=== PATIENT | female | born 2005 | race African-American/Black ===

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

== ENCOUNTER 2023-06-20 23:18 | Emergency (ER) | payer SELFPAY ==
--- NOTE | ~2023-06-20 | XR_ITS ---
Left Knee Technique: AP, lateral, and oblique views were obtained. Clinical History: Pain Findings: No fracture or dislocation is seen. Osseous alignment is anatomic. Joint spaces are preserv ed without degenerative or erosive change. Soft tissues are unremarkable. No joint effusion is seen. Impression: Unremarkable left knee radiographs. Reviewed, dictated and finalized at location . Impression: Unremarkable left knee radiographs.
[2023-06-20 23:20] VITALS: BP 124/71; PULSE 69; RESP 16; TEMP 36.7; O2SAT 100
--- NOTE | 2023-06-21 05:46 | ED.GENADULT ---
HPI - General Adult General Chief complaint: Extremity Injury, Lower Stated complaint: L knee pain Time Seen by Provider: 06/21/23 05:43 Patient 18-year-old female presents emergency department with chief complaint of left knee pain. Patient reports couple weeks ago she was playing with her sister and hit her knee-they were wrestling the patient reports that day later started having pain on the medial aspect of her left knee. The patient reports the pain is worse with movement and improved with rest the patient denies any other injuries Related Data Allergies Allergy/AdvReac Type Severity Reaction Status Date / Time No Known Allergies Allergy Verified 10/19/22 10:12 Review of Systems Review of Systems: A 10 system review of systems was completed on the patient and is negative except for what is stated in the HPI. Nursing and ancillary documentation was reviewed. Exam Narrative: GENERAL: Well-appearing, well-nourished, and in no acute distress. HEAD: Normocephalic, atraumatic. EYES: PERRLA and EOMI. ENT: Nares clear, no rhinorrhea or epistaxis. Mucous membranes moist. NECK: Supple. CHEST: Clear to auscultation. No respiratory distress. HEART: Regular rate and rhythm. No murmur heard. Normal peripheral pulses. ABDOMEN: Soft, nontender, nondistended, normal active bowel sounds. EXTREMITIES: Normal range of motion. No edema. Tenderness palpation the medial aspect of left knee no bony step-off noted no deformity SKIN: Warm, dry, no rash. NEURO: No focal deficits. Alert and oriented x3. PSYCH: Normal mood and affect. Course Vital Signs Vital signs: Vital Signs Temperature 36.7 C 06/20/23 23:20 Pulse Rate 69 06/20/23 23:20 Respiratory Rate 16 06/20/23 23:20 Blood Pressure 124/71 06/20/23 23:20 Pulse Oximetry 100 06/20/23 23:20 Oxygen Delivery Room Air 06/20/23 23:20 Temperature 36.7 C 06/20/23 23:20 Pulse Rate 69 06/20/23 23:20 Respiratory Rate 16 06/20/23 23:20 Blood Pressure 124/71 06/20/23 23:20 Pulse Oximetry 100 06/20/23 23:20 Oxygen Delivery Room Air 06/20/23 23:20 Medical Decision Making MDM Narrative Medical decision making narrative: Differential diagnosis includes sprain, fracture Plain film x-ray showed no evidence of fracture Patient was placed in Santino wrap and started on anti-inflammatories the patient follow-up with her primary care provider if her symptoms worsen she may need further imaging as an outpatient. Vital Signs Vital Signs: Vital Signs Temperature 36.7 C 06/20/23 23:20 Pulse Rate 69 06/20/23 23:20 Respiratory Rate 16 06/20/23 23:20 Blood Pressure 124/71 06/20/23 23:20 Pulse Oximetry 100 06/20/23 23:20 Oxygen Delivery Room Air 06/20/23 23:20 Temperature 36.7 C 06/20/23 23:20 Pulse Rate 69 06/20/23 23:20 Respiratory Rate 16 06/20/23 23:20 Blood Pressure 124/71 06/20/23 23:20 Pulse Oximetry 100 06/20/23 23:20 Oxygen Delivery Room Air 06/20/23 23:20 Discharge Plan Discharge Clinical Impression: Knee sprain Qualifiers: Encounter type: initial encounter Involved ligament of knee: other ligament Laterality: left Qualified Code(s): S83.8X2A - Sprain of other specified parts of left knee, initial encounter Patient Disposition: Home, Self-Care Condition: Stable Instructions: Antibiotic Form, Knee Sprain (ED) Prescriptions: New diclofenac potassium 50 mg tablet 50 mg PO TID PRN (Reason: pain) Qty: 30 0RF No Action amoxicillin 500 mg capsule 500 mg PO Q8H 7 Days Qty: 21 0RF prednisone 20 mg tablet 40 mg PO DAILY 4 Days Qty: 8 0RF ondansetron 4 mg tablet,disintegrating 4 mg PO Q6H PRN (Reason: nausea and vomiting) Qty: 14 0RF cephalexin 500 mg capsule 500 mg PO Q12H Qty: 14 0RF Follow-up/Referrals: Fredrick,MD Michelle [Primary Care Provider] - Time of Disposition: 05:47
[2023-06-21 05:55] VITALS: BP 120/68; PULSE 62; RESP 16; O2SAT 100
== END 2023-06-21 06:00 | disposition home or self-care (01) ==
PROVIDERS: Emergency Provider Emergency Medicine; PCP Pediatrics
DX: S83.8X2A Sprain of other specified parts of left knee, initial encounter (principal); W51.XXXA Accidental striking against or bumped into by another person, initial encounter
CPT/HCPCS: 73562; 99283

== ENCOUNTER 2024-02-28 19:51 | Observation (INO) | payer OTHER, SELFPAY ==
[2024-02-28 20:09] VITALS: BP 115/60; PULSE 69
[2024-02-28 20:17] VITALS: BMI 34.5
--- NOTE | 2024-02-28 20:17 | OBADM ---
This patient, Rosalia Ortiz, admitted to the OB room [facility] for observation. Patient/family oriented to hospital policies and general routines including ID bracelet, bed and alarms, visiting hours, pain management, procedures, bathroom and other care routines, personal items, smoking policy, room service/diet, and visiting hours. Patient/Family are encouraged to report perceived risks to care and to ask questions if they do not understand what they are told or what they should do.
[2024-02-28 20:31] VITALS: BP 129/53; PULSE 62
[2024-02-28 20:42] LABS: Add Urine Microscopic? YES; Appearance Urine Turbid (Clear); Bacteria Urine 4+ /hpf; Bilirubin Urine 1+ (Negative); Blood Urine Negative (Negative); Color Urine Dark Yellow (Yellow); Glucose Urine UA Negative (Negative); Ketones Urine 1+ mg/dL (Negative); Leukocyte Esterase Ur 3+ LEU/UL (Negative); Need Manual Microscopic Reviewed; Nitrate Urine Negative (Negative); Non Pathogenic Casts 0-2; Protein Urine 1+ mg/dL (Negative); RBC Urine 0-2 /hpf (0-2); Squamous Epithelial Cell Urine Many /hpf (Few); WBC Urine 21-50 /hpf (0-3)
[2024-02-28] MEDS: FAMOTIDINE 20 MG/2 ML VIAL 10 MG IV PUSH (21:07)
[2024-02-28] MEDS: ONDANSETRON INJ 4 MG/2 ML VIAL IV PUSH (21:07)
[2024-02-28] MEDS: LACTATED RINGERS 1,000 ML 999 ML IV CONT (21:08)
[2024-02-28 21:12] VITALS: TEMP 36.1
[2024-02-28 21:31] VITALS: BP 106/63; PULSE 65
[2024-02-28 21:56] VITALS: BP 106/63; PULSE 65
--- NOTE | 2024-03-07 18:04 | P.PNOB_ITS ---
OB - Triage/Final Diagnosis Visit Information Comments/Additional reasons for admission: I have assessed the risk for this patient, Rosalia Ortiz, and determined that she would benefit from observation care. Evaluation Laboratory results: Laboratory Tests 02/28/24 20:14 Urine Color Dark yellow Urine Appearance Turbid H Urine pH 6.0 Ur Specific Spencer 1.030 Urine Protein 1+ H Urine Glucose (UA) Negative Urine Ketones 1+ H Ur Blood (Man) Negative Urine Nitrate Negative Urine Bilirubin 1+ H Urine Urobilinogen 1.0 Add Ur Microanalysis Reviewed Leukocyte Esterase Rfl 3+ H Urine RBC 0-2 Urine WBC 21-50 H Ur Squamous Epith Cells Many H Urine Bacteria 4+ H Urine Casts 0-2 Final Diagnosis (1) Nausea and vomiting: Code(s): R11.2 - Nausea with vomiting, unspecified Status: Acute
== END 2024-02-28 22:20 | disposition home or self-care (01) ==
PROVIDERS: Admitting Provider Obstetrics & Gynecology; PCP Pediatrics; Visit Provider Obstetrics & Gynecology
DX: O21.2 Late vomiting of pregnancy (principal); Z3A.26 26 weeks gestation of pregnancy
CPT/HCPCS: 59025; 81001; 87086; 96374; 96375; G0378; G0379; J2405; J7120

== ENCOUNTER 2024-03-20 13:08 | Emergency (ER) | payer OTHER, SELFPAY ==
--- OUTSIDE RECORDS SUMMARY | 2024-03-20 13:17 | XMS_ITS | Clinical Summary ---
Author Organization [facility] Address [address] [place] [address] Care Team Providers Care Operation Specialist Name Role Phone Unavailable Primary Care Provider Unavailabl e Source Comments [facility],non-owned Affiliates and Associated Physician Practices is amultiple site organization consisting of ambulatory clinics and hospital sitesin [place], [place], [place] and [place]. This disclosure is being madepursuant to the Care Everywhere program and may not contain all information available regarding this patient. Last updated 17.[facility] Allergies No known active allergies Medications * Be aware that medications may not be up to date on this document. Alwaysverify current medications with the patient. Medication Sig Dispensed Refills Start Date End Date Status Nebulizer Use as directed. 1 Each 0 11/10/2011 Active beclomethasone dipropionate (QVAR) 80 MCG/ACT inhaler Inhale 1 Puff by mouth 2 times daily 1 Inhaler 4 12/02/2015 Active albuterol HFA (PROAIR HFA) 108 (90 BASE) MCG/ACT inhaler Inhale 2 Puffs by mouth every 6 hours as needed (for use at school . last refill in 11/10/11) 1 Inhaler 3 12/02/2015 Active fluticasone propionate (FLONASE) 50 MCG/ACT nasal spray [place] 1 [place] into each nostril once daily 1 Bottle 6 12/02/2015 Active montelukast (SINGULAIR) 5 MG chew tablet Take 1 Tab by mouth at bedtime 30 Tab 1 12/02/2015 Active Active Problems Problem Noted Date Diagnosed Date Allergic rhinitis 12/02/2015 Assessment & Plan (12/02/2015 10:06 AM CDT): Increased symptoms with lots of sneezing, particularly at night. Rec: Flonase 1 spray each nostril daily Singulair 5 mg daily Refills provided Need for Menactra vaccination 12/02/2015 Assessment & Plan (12/02/2015 10:08 AM CDT): Mom indicates that Rosalia can't return to school until she gets this vaccine and says that Dr. Bui's office is currently out of vaccine. Plan: Menactra today at Mom's request Tonsillar and adenoid hypertrophy 10/24/2012 JOSHUA (obstructive sleep apnea) 10/24/2012 Mild persistent asthma without complication 10/16 Overview (11/10/2011): 6 year old female with a known history of wheezing presented with 2 days of cough and wheeze, afebrile. Transferred to [facility] [place] [place] from OSH. CXR in ED showed RML and RLL atelectasis. Given rocephin and mag in ED. Steroids given at OSH. CBG with hypocarbia. BMP with bicarb of 15 and lower potassium. KRISTEN of 5 on presentation which did not improve with continuous therapy. Admitted to the PICU during 5th continuous treatment. Not on controller at home. Rapid strep negative, prelim culture negative. Status asthmaticus improved. No supplemental O2 requirement. Transferred out of the PICU and placed on the asthma care pathway. She was gradually weaned to Albuterol q4 hour treatments. She was continued on Prednisone 1mg/kg po BID to complete a total 5 day course. IgE inhalent labs were obtained. She was started on Flovent 44 mcg 2 puffs BID and continued on singular 5 mg po once daily. For allergic rhinitis zyrtec 5 mg po once daily prn was started. After being spaced to q4 hour albuterol and after receiving asthma teaching she was able to be discharged. Assessment & Plan (12/02/2015 10:05 AM CDT): Has been off medications for about a month but has had a number of problems with her asthma in the past. She denies excessive albuterol use, exercise related symptoms or nocturnal issues. 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 This is currently under suboptimal control due to missed medication. current treatment plan is effective, no change in therapy, critical need for compliance with treatment plan to achieve optimal results. I utilized Motivational interviewing to help her develop a plan to imrprove her usage of the Qvar. I also reviewed strategies to improve her adherence including using a daily chart to record the dose, using a cell phone to set an alarm, and having the patient earn a household privilege by remembering their medications. Will plan follow-up assessment for control in 1 months. Assessment & Plan (10/02/2014 3:11 PM CDT): Asthma - classified as Mild persistent. This is currently under suboptimal control due to missed medication due to lack of prescription. current treatment plan is effective, no change in therapy. Will plan follow-up assessment for control in 4 months. I also reviewed strategies to improve her adherence including using a daily chart to record the dose, using a cell phone to set an alarm, and having the patient earn a household privilege by remembering their medications. WE also talked about starting a walk/run program to help with her weight. Comments Yes Immunizations Name Administration Dates Next Due INFLUENZA VACCINE, QUADR. (F LUZONE; FLULAVAL; FLUARIX; AFLURIA QUADRIVALENT; 6MO+), 0.5 ML (IIV4) 12/02/2015 MENINGOCOCCAL CONJUGATE (MCV4P) 12/02/2015 Social History Tobacco Use Types Packs/Day Years Used Date Smoking Tobacco: Never Comments Yes Sex and Gender Information Value Date Recorded Sex Assigned at Not on file Gender Identity Not on file Sexual Orientation Not on file Last Filed Vital Signs Vital Sign Reading Time Taken Comments Blood Pressure 124/82 10/24/2012 2:50 PM CDT Pulse 75 12/02/2015 9:30 AM CDT Temperature 36.7 ??C (98 ??F) 10/24/2012 12:45 PM CDT Respiratory Rate 18 12/02/2015 9:30 AM CDT Oxygen Saturation 97% 12/02/2015 9:30 AM CDT Inhaled Oxygen Concentration 21% 11/09/2011 7 :00 AM CDT Weight 73.6 kg (162 lb 4.1 oz) 12/02/2015 9:30 A M CDT Height 159.5 cm (5' 2.8 ) 12/02/2015 9:30 AM CDT Body Mass Index 28.93 12/02/2015 9:30 AM CDT Plan of Treatment Health Maintenance Due Date Last Done Comments HIV SCREENING 06/05/2018 HPV VACCINE (1 - 3-dose series) 06/05/2018 CHLAMYDIA/GONORRHEA SCREENING 2019 MENINGOCOCCAL (Group B) VACCINE (1 of 2 - Standard) 2019 HEPATITIS C SCREENING 06/01/2021 DTAP/TDAP/TD VACCINES (1 - Tdap) 06/05/2022 HEPATITIS B VACCINE (1 of 3 - 19+ 3-dose series) 06/05/2022 PNEUMOCOCCAL VACCINE (1 of 2 - PCV) 06/05/2022 COVID-19 VACCINE (1 - season) 2023 INFLUENZA VACCINE (#1) 2023 , 12/28/2017, 12/02/2015, Additional history exists DEPRESSION SCREENING 02/15/2024 ZOSTER VACCINE (1 of 2) 06/05/2053 Respiratory Syncytial Virus (RSV) Vaccine Pt: or over 60 yrs (1 - 1-dose 75+ series) 06/05/2078 MENINGOCOCCAL VACCINE Aged Out 12/02/2015 No araceli marquita eligible based on patient's age to complete this topic HIB VACCINE Aged Out No longer eligi ble based on patient's age to complete this topic Janene Damon Personal/Famil y Mother 1986 Rosalia Ortiz Personal/Famil y Self 2003
--- OUTSIDE RECORDS SUMMARY | 2024-03-20 13:17 | XMS_ITS | Patient Health Summary ---
Author Organization [facility] [address] Address [address] [place] [address] Care Team Providers Care Commercial Finance Manager Name Role Phone Unavailable Primary Care Provider Unavailabl e Note from [facility],non-owned Affiliates and Associated Physician Practices is amultiple site organization consisting of ambulatory clinics and hospital sitesin [place], [place], [place] and [place]. This disclosure is being madepursuant to the Care Everywhere program and may not contain all information available regarding this patient. Last updated 17.[facility] Allergies No known active allergies Medications * Be aware that medications may not be up to date on this document. Alwaysverify current medications with the patient. * Nebulizer(Started 11/10/2011) Use as directed. * beclomethasone dipropionate (QVAR) 80 MCG/ACT inhaler(Started 12/02/2015) Inhale 1 Puff by mouth 2 times daily 4 refills remaining * albuterol HFA (PROAIR HFA) 108 (90 BASE) MCG/ACT inhaler(Started 12/02/2015) Inhale 2 Puffs by mouth every 6 hours as needed (for use at school . last refill in 11/10/11) 3 refills remaining * fluticasone propionate (FLONASE) 50 MCG/ACT nasal spray(Started 12/02/2015) Allyn 1 Allyn into each nostril once daily 6 refills remaining * montelukast (SINGULAIR) 5 MG chew tablet(Started 12/02/2015) Take 1 Tab by mouth at bedtime 1 refill remaining Active Problems Problem Noted Date Diagnosed Date Allergic rhinitis 12/02/2015 Need for Menactra vaccination 12/02/2015 Tonsillar and adenoid hypertrophy 10/24/2012 JOSHUA (obstructive sleep apnea) 10/24/2012 Mild persistent asthma without complication 10/16 Immunizations * INFLUENZA VACCINE, QUADR. (FLUZONE; FLULAVAL; FLUARIX; AFLURIA QUADRIVALENT; 6MO+), 0.5 ML (IIV4)(Given 12/02/2015) * MENINGOCOCCAL CONJUGATE (MCV4P)(Given 12/02/2015) Social History Tobacco Use Types Packs/Day Years [...] Mass Index 28.93 12/02/2015 9:30 AM CDT Procedures * SONOGRAM - COMPLETE(Performed 11/21/2023) Performed for with uncertain dates, antepartum ([facility]), Supervision of normal first , antepartum ([facility]), Encounter for ultrasound ([facility]) * PATHOLOGY/CYTOLOGY REPORT ORDER(Performed 10/25/2012) * TONSILLECTOMY AND ADENOIDECTOMY(Performed 10/24/2012) Performed for Hypertrophy of tonsil with adenoids, Unspecified sleep apnea * GROSS EXAM PATHOLOGY (STL)(Performed 10/24/2012) Performed for Tonsillar and adenoid hypertrophy, JOSHUA (obstructive sleep apnea) * BEDSIDE SPIROMETRY(Performed 05/31/2012) * ALLERGEN COCKROACH IGE(Performed 11/09/2011) Performed for Cough, Status asthmaticus ([facility]) * ALLERGEN MOUSE URINE IGE(Performed 11/09/2011) Performed for Cough, Status asthmaticus (HCC) * ALLERGEN INHALANT COMPREHENSIVE PROFILE(Performed 11/09/2011) Performed for Cough, Status asthmaticus (HCC) * CULTURE MRSA(Performed 11/08/2011) * BLOOD GASES CAP + COOX PANEL(Performed 11/08/2011) * XR CHEST 2VW(Performed 11/07/2011) Performed for Cough * BASIC METABOLIC PANEL (CALCIUM TOTAL)(Performed 11/07/2011) * STREP A SCREEN DIRECT W RFLX STREP A CULTURE(Performed 11/07/2011) * CULTURE STREP GROUP A(Performed 11/07/2011) Results * SONOGRAM - COMPLETE (11/21/2023 7:47 AM CDT) Anatomical Region Laterality Modality Other 11/21/2023 7:47 AM CDT Narrative 11/21/2023 8:16 AM CDT ? [facility] ?PHONE: ??FAX: Pat. Name: ?KYLE HONEYCUTT Pat. No: ?[id number] Study Date: ?? 11/21/2023 ??7:47am , Age: ? 2005, 18 Pregnancies: ?? 1 Height: ? 66 in Weight: ? 205 lb LMP: ?Unknown GA by US: ? 11w6d ?? ARIADNA: 06/05/2024 GA Selected: ??11w6d (Sonographic) ARIADNA: ?06/05/2024 Referring MD: Jenifer Zuleta MD Stopper Maker: ??Chiqui Bal RDMS CPT4: ? 16061 BMI: ?33.08 Hist/Ind: ? Dating ?Uncertain LMP ?Low Risk NIPT (per patient) ?Marijuana Use MEASUREMENTS & AGE ? GROWTH EVALUATION Measurement ??GA ? Range ? Srce %for GA Ratios ----- ---- ------- CRL ??5.1 cm 11w6d ([id number]) Hadl CRL 50% GA for sonogram 11w6d ([id number]) based on (CRL) Avg ? Heart Rate: 160 bpm PROCEDURE, TECHNIQUE Technique: transabdominal EVAL, PLACENTA Location: intrauterine Gestational Sac: normal Yolk Sac: not seen Embryo: visualized Heart Rate: 160 bpm MATERNAL ANATOMY Right ??Desc: Appears normal Left ??Desc: Appears normal Anatomy!Seen!Not Seen!Comments # Fetuses ?! ??x ! ?! Amnion ? ! ??x ! ?! Chorion ?! ??x ! ?! Myometrium ?? ! ??x ! ?! Right Ovary ??! ??x ! ?! Left Ovary ?? ! ??x ! ?! Cul de sac ?? ! ??x ! ?! Calvarium* ?? ! ??x ! ?! Midline Falx*! ??x ! ?! 4th Ventricle! ?! ?x ?? ! Lateral Ventr! ??x ! ?! Choroid Plexu! ??x ! ?! Nasal Bone* ??! ?! ?x ?? ! Neck/Dorsum* ! ??x ! ?! 4 CH* ?! ?! ?x ?? ! Abdominal Cor! ??x ! ?! Diaphragm* ?? ! ?! ?x ?? ! Spine* ? ! ?! ?x ?? ! Stomach* ? ! ??x ! ?! Kidneys* ? ! ?! ?x ?? ! Bladder* ? ! ??x ! ?! Upper Extremi! ??x ! ?! Lower Extremi! ??x ! ?! CLINICAL SUMMARY TAUS used to image a single intrauterine with cardiac activity. ??There is no fluid in the pelvis. ??The right ovary was seen. ??The left ovary was seen and appears normal. IMPRESSION: Single, live, intrauterine at ??11w6d RECOMMEND: Follow up ultrasound at 20 weeks for detailed anatomy screen and screening cervical length Thank you for allowing us the opportunity to take care of your patient. Liyah Bello MD <Electronic Signature> ??11/21/2023 08:16am Jenifer Zuleta MD [facility] ORDERABLES * PATHOLOGY/CYTOLOGY REPORT ORDER (10/25/2012 6:54 PM CDT) Narrative 10/25/2012 6:54 PM CDT Ordered by an unspecified provider. Transcriptions Document, Scanned - 10/25/2012 6:54 PM CDT Scanned Document LAB - PATHOLOGY/CYTO LOGY ORDERABLES * GROSS EXAM PATHOLOGY (STL) (10/24/2012 12:30 PM CDT) Case Report Surgical Pathology Report ? Case: [id number] ? Authorizing Provider: ??Lakeshia Marie MD ? Ordering Provider: ?? Lakeshia Marie MD ? Ordering Location: ? [facility] ? Collected: ? 10/24/2012 12:30 PM ? Pathologist: ? Noam Aldrich MD ?Received: ?10/24/2012 ??2:46 PM ?Signed Out: ?10/25/2012 10:16 AM (Final) ? Specimen: ?Tonsil(s) ? 10/25/2012 10:16 AM [facility] Final Diagnosis GROSS DIAGNOSIS: PALATINE TONSILS. 10/25/2012 10:16 AM [facility] Clinical History The patient is a 7-year-old girl with adenotonsillar hypertrophy and clinical suspicion of obstructive sleep apnea. 10/25/2012 10:16 AM [facility] Gross Description Submitted fresh in one container for gross examination only, labeled with the patient's name, Kyle Kelley Green, and tonsils, are two egg-shaped, pink-desai palatine tonsils measuring 2.7 x 2 cm x 1.6 cm and 2.8 x 1.9 x 1.6 cm weighing 8 grams combined. On cut surface, the tonsils have a cerebriform yellow-desai appearance. No sections are taken. (ESTEPHANIE/thaddeus) 10/25/2012 10:16 AM [facility] Disclaimer This case has been personally reviewed and interpreted by the attending (teaching) pathologist. 10/25/2012 10:16 AM [facility] Synoptic Report 10/25/2012 10:16 AM [facility] Pathology/Cytolo gy SPECIMEN FROM TONSIL / Unknown 10/24/2012 12:30 PM CDT 10/24/2012 2:46 PM CDT Lakeshia Marie MD LAB - PATHOLOGY/CYTO LOGY ORDERABLES [facility] [place] [address] * (ABNORMAL) ALLERGEN INHALANT COMPREHENSIVE PROFILE (11/09/2011 4:40 PM CDT) IgE Total 138 2 - 403 IU/mL 11/11/2011 8:11 PM CDT [facility] Comment: REFERENCE INTERVAL: Immunoglobulin E, Serum Access complete set of age- and/or gender-specific reference intervals for this test in the [facility] Test Directory ([employer]). Allergen Common Ragweed <0.10 <=0.34 kU/L 11/11/2011 8:11 PM CDT [facility] Allergen Mugwort <0.10 <=0.34 kU/L 11/11/2011 8:11 PM CDT [facility] Allergen Citizen Of [place] Plantain 0.12 <=0.34 kU/L 11/11/2011 8:11 PM CDT [facility] Allergen Cobb's Quarters <0.10 <=0.34 kU/L 11/11/2011 8:11 PM CDT [facility] Allergen Vietnamese Thistle <0.10 <=0.34 kU/L 11/11/2011 8:11 PM CDT [facility] Allergen Bermuda Grass <0.10 <=0.34 kU/L 11/11/2011 8:11 PM CDT [facility] Allergen Hilliard Grass Perennial <0.10 <=0.34 kU/L 11/11/2011 8:11 PM CDT [facility] Allergen French Grass <0.10 <=0.34 kU/L 11/11/2011 8:11 PM CDT [facility] Allergen Nisreen Grass <0.10 <=0.34 kU/L 11/11/2011 8:11 PM CDT [facility] Allergen Colt Grass <0.10 <=0.34 kU/L 11/11/2011 8:11 PM CDT [facility] Allergen Mountain Ogle <0.10 <=0.34 kU/L 11/11/2011 8:11 PM CDT [facility] Allergen Hamlin <0.10 <=0.34 kU/L 11/11/2011 8:11 PM CDT [facility] Allergen Elm 0.12 <=0.34 kU/L 11/11/2011 8:11 PM CDT [facility] Allergen Osawatomie Tree 0.10 <=0.34 kU/L 11/11/2011 8:11 PM CDT [facility] Allergen Endicott Tree <0.10 <=0.34 kU/L 11/11/2011 8:11 PM CDT [facility] Allergen Sunset Tree <0.10 <=0.34 kU/L 11/11/2011 8:11 PM CDT [facility] Allergen P. Notatum 0.19 <=0.34 kU/L 11/11/2011 8:11 PM CDT [facility] Allergen Hormodendrum 1.09(H) <=0.34 kU/L 11/11/2011 8:11 PM CDT [facility] Allergen A fumigatus IgE 2.39(H) <=0.34 kU/L 11/11/2011 8:11 PM CDT [facility] Allergen Alternaria alternata 18.80(H) <=0.34 kU/L 11/11/2011 8:11 PM CDT [facility] Allergen Dermatophagoides pteronyssinus <0.10 <=0.34 kU/L 11/11/2011 8:11 PM CDT [facility] Allergen Dermatophagoides farinae <0.10 <=0.34 kU/L 11/11/2011 8:11 PM CDT [facility] Allergen Cat Dander <0.10 <=0.34 kU/L 11/11/2011 8:11 PM CDT [facility] Allergen Dog Dander <0.10 <=0.34 kU/L 11/11/2011 8:11 PM CDT [facility] Allergen Horse Dander <0.10 <=0.34 kU/L 11/11/2011 8:11 PM CDT [facility] Allergen Cow Dander <0.10 <=0.34 kU/L 11/11/2011 8:11 PM CDT [facility] Allergen House Dust No <0.10 <=0.34 kU/L 11/11/2011 8:11 PM CDT [facility] Immunocap Score See Note 2 8:11 PM CDT [facility] Comment: REFERENCE INTERVAL: Allergen, Interpretation Less than 0.10 kU/L......No significant level detected 0.10-0.34 kU/L...........Clinical relevance undetermined 0.35-0.70 kU/L...........Low 0.71-3.50 kU/L...........Moderate 3.51-17.50 kU/L..........High 17.51 kU/L or Greater....Very High Allergen results of 0.10-0.34 kU/L are intended for specialist use as the clinical relevance is undetermined. Even though increasing ranges are reflective of increasing concentrations of allergen-specific IgE, these concentrations may not correlate with the degree of clinical response or skin testing results when challenged with a specific allergen. The correlation of allergy laboratory results with clinical history and in vivo reactivity to specific allergens is essential. A negative test may not rule out clinical allergy or even anaphylaxis. Blood specimen (specimen) BLOOD SPECIMEN / Unknown 11/09/2011 4:40 PM CDT 11/09/2011 4:51 PM CDT Akbar Soliz MD LAB - SEROLOGY ORDER KEYLA [facility] [address] [place] [address] * ALLERGEN COCKROACH IGE (11/09/2011 4:40 PM CDT) Allergen Cockroach Bermudian <0.10 <=0.34 kU/L 11/11/2011 8:11 PM CDT [facility] Comment: Allergen, Insect & Venom, Cockroach, Bermudian ? Effective 01/05/2011 Due to the prolonged unavailability of testing material for IgE-specific antibody to Bermudian Cockroach ([facility] test code 0818579), [facility] has implemented alternative test material. According to the kit oracle ebs architect, IgE-specific antibody to Bermudian Cockroach is also reliably detected using testing material for Wolof Cockroach ([facility] test code 6844129). Wolof Cockroach IgE has been substituted. INTERPRETIVE INFORMATION: ALLERGEN, Bermudian Cockroach Analyte specific reagents (ASR) are used in many laboratory tests necessary for standard medical care and generally do not require U.S. Food and Drug Administration (FDA) approval or clearance. This test was developed and its performance characteristics determined by [employer]. The U.S. Food and Drug Administration has not approved or cleared this test; however, FDA clearance or approval is not currently required for clinical use. The results are not intended to be used as the sole means for clinical diagnosis or patient management decisions. This test should not be regarded as investigational or for research use. Blood specimen (specimen) BLOOD SPECIMEN / Unknown 11/09/2011 4:40 PM CDT 11/09/2011 4:51 PM CDT Akbar Soliz MD LAB - CHEMISTRY ORDAminah DICKERSON Performing Organization Address [facility] Co de Phone Number [employer] [address] [place] [address] * ALLERGEN MOUSE IGE (11/09/2011 4:40 PM CDT) Allergen Mouse Urine IgE <0.10 <=0.34 kU/L 11/11/2011 8:11 PM CDT [facility] [employer] Blood specimen (specimen) BLOOD SPECIMEN / Unknown 11/09/2011 4:40 PM CDT 11/09/2011 4:51 PM CDT Akbar Soliz MD LAB - SEROLOGY ORDER KEYLA Performing Organization Address [facility] Co de Phone Number [facility] [employer] [address] [place] [address] * CULTURE MRSA (11/08/2011 5:52 AM CDT) Culture SEE BELOW 11/09/2011 7:42 AM CDT [facility] Comment: - Final - NO growth of Staphylococcus ?? aureus (MRSA) Miscellaneous samples (specimen) SPECIMEN FROM NASAL FOSSAE / Unknown 11/08/2011 5:52 AM CDT 11/08/2011 6:15 AM CDT Morelia Galo MD LAB - MICROBIOLOGY ORDERABLES [facility] [address] [place] [address], [facility] * (ABNORMAL) BLOOD GASES CAP + COOX PANEL (11/08/2011 3:27 AM CDT) pH Capillary 7.406 7.35 - 7.45 pH 11/08/2011 3:50 AM T [facility] pCO2 Capillary 28.5(L) 32 - 45 mm hg 11/08/2011 3:50 AM [facility] pO2 Capillary 61.0(L) 83 - 108 mm hg 11/08/2011 3:50 AM [facility] O2 Saturation Capillary 92.6(L) 95 - 99 % 11/08/2011 3:50 AM [facility] BE Capillary -6.3(L) -2 - 2 mmol/L 11/08/2011 3:50 AM [facility] Carboxyhemoglobin Capillary 1.0(H) 0 - 0.8 % 11/08/2011 3:50 AM [facility] Temp 37.0 C 11/08/2011 3:50 AM [facility] Oxyhemoglobin Capillary 90.7(L) 94 - 98 % 11/08/2011 3:50 AM [facility] Methemoglobin Capillary 1.1(H) 0.2 - 0.6 % 11/08/2011 3:50 AM [facility] O2 Content Capillary 13.8(L) 15 - 23 mg/dL 11/08/2011 3:50 AM [facility] P50 Capillary 24.36(L) 25.3 - 26.8 mm hg 11/08/2011 3:50 AM [facility] Hemoglobin Capillary 10.8(L) 11.5 - 15.5 gm/dL 11/08/2011 3:50 AM [facility] Blood specimen (specimen) CAPILLARY BLOOD / Unknown 11/08/2011 3:27 AM CDT 11/08/2011 3:33 AM CDT Narrative [facility] - 11/08/2011 3:50 AM CDT NOTE: Reference ranges are for Arterial Blood. Otilia L Ale DO LAB - BLOOD GASES OR DERABLES Performing Organization Address City/State/[facility] Co de Phone Number [facility] [address] [place] [address] * XR CHEST PA AND LATERAL (11/07/2011 10:54 PM CDT) Anatomical Region Laterality Modality Chest Radiographic Cheri ging 11/08/2011 7:37 AM CDT Impressions 11/08/2011 7:37 AM CDT 1. Airway disease. 2. Right lower lobe infiltrate with atelectasis 3. Small right pleural effusion. Narrative 11/08/2011 7:37 AM CDT Chest, 2 views 11/07/2011 Right lower lobe infiltrate and effusion are present. Fluid tracks along the lateral chest wall and into the minor fissure. There is a mild retrocardiac opacity suggesting atelectasis. There is no left effusion. No pneumothorax is present. Heart size is normal. Airway disease is seen in both shruthi with bronchial wall thickening. Procedure Note Rom Sherwood MD - 11/08/2011 Chest, 2 views 11/07/2011 Right lower lobe infiltrate and effusion are present. Fluid tracks along the lateral chest wall and into the minor fissure. There is a mild retrocardiac opacity suggesting atelectasis. There is no left effusion. No pneumothorax is present. Heart size is normal. Airway disease is seen in both shruthi with bronchial wall thickening. IMPRESSION 1. Airway disease. 2. Right lower lobe infiltrate with atelectasis 3. Small right pleural effusion. Otilia Aguilera DO DIAGNOSTIC IMAGING O RDERABLES * (ABNORMAL) BASIC METABOLIC PANEL (CALCIUM TOTAL) (11/07/2011 10:05 PM CDT) Glucose 197(H) 70 - 105 mg/dL 11/07/2011 10:41 PM CDT [facility] Sodium 140 136 - 145 mmol/L 11/07/2011 10:41 PM CDT [facility] Potassium 2.8(LL) 3.5 - 5.1 mmol/L 11/07/2011 10:41 PM CDT [facility] Chloride 107 98 - 107 mmol/L 11/07/2011 10:41 PM CDT [facility] CO2 15(L) 20 - 28 mmol/L 11/07/2011 10:41 PM T [facility] Calcium 9.54 9.12 - 10.48 mg/dL 11/07/2011 10:41 PM T [facility] Anion Gap 18 5 - 20 mmol/L 11/07/2011 10:41 PM T [facility] BUN 8.4 6.7 - 19.6 mg/dL 11/07/2011 10:41 PM T [facility] Creatinine 0.52(L) 0.53 - 0.80 mg/dL 11/07/2011 10:41 PM T [facility] eGFR by MDRD ml/min/1. 73m2 11/07/2011 10:41 PM T [facility] Comment:eGFR calculations ar e not performed for children under 18 years old. eGFR by MDRD ml/min/1. 73m2 11/07/2011 10:41 PM T [facility] Comment:eGFR calculations ar e not performed for children under 18 years old. Blood specimen (specimen) BLOOD SPECIMEN / Unknown 11/07/2011 10:05 PM CDT 11/07/2011 10:15 PM CDT Otilia Aguilera DO LAB - CHEMISTRY LORETTA DICKERSON Performing Organization Address [facility] Co de Phone Number [facility] [address] [place] [address] * STREP A SCREEN DIRECT W RFLX STREP A CULTURE (11/07/2011 9:07 PM CDT) Strep A Rapid Negative Negative 11/07/2011 9:38 PM CDT [facility] Throat swab (specimen) ENTIRE THROAT (SURFACE REGION OF NECK) / Unknown 11/07/2011 9:07 PM CDT 11/07/2011 9:27 PM CDT Narrative [facility] - 11/07/2011 9:38 PM CDT Test has reflexed to a Strep A culture. Eze Dean MD LAB - MICROBIOLOGY O RDERABLES Performing Organization Address [facility]/ZIP Co de Phone Number [facility] [address] [place] [address] * CULTURE STREP GROUP A (11/07/2011 9:07 PM CDT) Culture SEE BELOW 11/10/2011 4:15 AM CDT [facility] Comment: - Final - CULTURE NO growth of beta-hemolytic ?? strep Group A Miscellaneous samples (specimen) ENTIRE THROAT (SURFACE REGION OF NECK) / Unknown 11/07/2011 9:07 PM CDT 11/07/2011 9:27 PM CDT Eze Dean MD LAB - MICROBIOLOGY O RDERABLES [facility] [address] [place] [address] KIET Ervin [address]
--- OUTSIDE RECORDS SUMMARY | 2024-03-20 13:17 | XMS_ITS | Referral Summary ---
Author Organization [facility] [employer] Address [address] [place] [address] Care Team Providers Care Analytical Laboratory Technician Name Role Phone Unavailable Primary Care Provider Unavailabl e Source Comments [facility],non-owned Affiliates and Associated Physician Practices is amultiple site organization consisting of ambulatory clinics and hospital sitesin [place], [place], [place] and [place]. This disclosure is being madepursuant to the Care Everywhere program and may not contain all information available regarding this patient. Last updated 17.[facility] [employer] Allergies No known active allergies Medications * [...] fluticasone propionate (FLONASE) 50 MCG/ACT nasal spray [place] 1 [place] into each nostril once daily 1 Bottle [...] of cough and wheeze, afebrile. Transferred to [facility] from OSH. CXR in ED showed RML [...] months Assessment & Plan (03/05/2015 5:17 PM [employer]): Asthma - classified as Moderate persistent. This [...] 12/02/2015 9:30 AM CDT Plan of Treatment Not on file Janene Damon Personal/Famil y Mother 1986 Rosalia Ortiz Personal/Famil y Self 2003
--- OUTSIDE RECORDS SUMMARY | 2024-03-20 13:17 | XMS_ITS | Data Portability ---
Author Organization [facility], [facility] Address [address] [place] [address] [place] [address] Care Team Providers Care Traffic Enumerator Name Role Phone WILVER ELI Primary Care Provider [phone] Assessment Encounter Date Assessment Date Assessment LastModified by Organization Details LastModified Time 01/19/2024 01/19/2024 Patient is ___weeks . Discussed plan. Not available 01/19/2024 10:37:18 02/16/2024 02/16/2024 Patient is ___weeks . Discussed plan. Not available 02/16/2024 16:00:09 03/15/2024 03/15/2024 Patient is ___weeks . Discussed plan. Not available 03/15/2024 12:11:19 Plan of Treatment Reminders Order Date Submit Date Provider Last Modified By Organization Details Last Modified Time Details Appointments U/S OB GROWTH 2024 10:30A M ULTRASOUND Not available Not available Not available OB ROUTINE 2024 11:15A M Arin FIGUEROA MD Not available Not available Not available Lab None recorde d. Referral None recorde d. Procedures None recorde d. Surgeries None recorde d. Imaging US, obstetr ic, 2nd or 3rd trimest er 2023 024 [email or web address] [facility], [address], [address], [place], [address], 01/19/2024 22:56:20 US, obstetr ic, follow- up 2024 025 [email or web address] [address], [address], [place], [address], 02/16/2024 22:20:16 Medication Orders None recorde d. Patient TargetsNo targets recorded. Patient InstructionsNo instructions recorded. Reason for Referral None Reported. Results Created Date Observation Date Name Description Value Unit Range Abnormal Flag Note LastModifiedBy Organization Detail LastModifiedTime 03/15/1903/15/2024 HEMAT OCRIT (HCT) HCT 28.8 % (based on docume nted legal sex) 34.0-4 5.0 low Not Available [facility] (Lab) [address], [place], [address], 03/16/2024 12:35:58 03/15/19 25 03/15/2024 HEMOG LOBIN (HGB) HGB 9.7 g/dL (based on docume nted legal sex) 11.6-1 5.4 low Not Available [facility] (Lab) [address], [place], [address], 03/16/2024 12:35:58 03/15/19 25 03/15/2024 GTT - GESTA CHITO L AHSAN Woodruff, ACOG OB glucose, 1 hour screen 95 mg/dL 70-135 Not Available [facility] (Lab) [address] [place], [address], 03/16/2024 12:35:59 03/15/19 25 03/15/2024 HIV 1/2 ANTIG EN/AN TIBOD Y, REFLE X CONFI RMATI ON HIV antigen/anti body Nonrea ctive nonrea ctive HIV-1 antig en and HIV-1 /HIV- 2 antib odies were not detec ashley. No labor atory evide nce of HIV infec tion. Not Available [facility] (Lab) [address], [place], [address], 03/16/2024 12:35:59 03/15/19 25 03/15/2024 RPR SCREE N, REFLE X TITER /CONF IRMAT ION RPR screen Nonrea ctive nonrea ctive Not Available [facility] (Lab) [address], [place], [address], 03/16/2024 12:35:59 01/19/20 24 01/19/2024 US, obste tric, 2nd or 3rd trime ster No observ ation record ed. [facility] [address], [place], [address], 01/19/2024 12:55:29 01/19/20 24 01/19/2024 US, obste tric, 2nd or 3rd trime ster No observ ation record ed. [email or web address] [address], [place], [address], 01/19/2024 23:42:20 02/15/19 25 02/16/2024 US, obste tric, follo w-up No observ ation record ed. [email or web address] [facility] [address], [place], [address], 02/16/2024 18:23:53 02/15/19 25 02/16/2024 US, obste tric, follo w-up No observ ation record ed. [address], [place], [address], 03/20/2024 09:48:19 02/27/1902/28/2024 non-s tress test No observ ation record ed. [address], [place], [address], 02/29/2024 10:47:24 Result Notes None recorded. Problems Name Problem SNOMED Code Status Onset Date Resolution Date Notes Provider Name and Address Organization Details Recorded Time 16082239 Active 2023 Maliha Holt [facility], [place] - [facility] 4 11:58:45 Obesity 526512227 Active start ASA weekly testing at 37wks Bisi Ortiz sandor, [facility] 5 17:42:19 with uncertain dates 218621564 Active originall y was dated using last menstrual period, this gave significa nt growth restricti on at the 20 week ultrasoun d , very symmetric ,. further discussio n indicated irregular periods . To use 9 week ultrasoun d and observe carefully . Growth ultrasoun d in 3 weeks Marcsu Figueroa MD [address], [place], [address], [place] [facility] 4 11:06:36 Problem Notes None recorded. Procedures Surgical History None recorded. Imaging Results Imaging Date Name Status LastModified by Organiz ation Details LastModified Time 01/19/2024 US, obstetric, 2nd [facility] 3rd [facility] [address], [place], [address], 01/19/2024 12:55:29 01/19/2024 US, obstetric, 2nd or 3rd trimester completed [email or web address] [address], [place], [address], 01/19/2024 23:42:20 02/16/2024 US, obstetric, follow-up completed [email or web address] [facility] [address], [place], [address], 02/16/2024 18:23:53 02/16/2024 US, obstetric, follow-up completed [address], [place], [address], 03/20/2024 09:48:19 02/28/2024 non-stress test completed [address], [place], [address], 02/29/2024 10:47:24 Procedure Notes None recorded. Medical Equipment None Reported. Allergies No known drug allergies Medications Name Sig Start Date Stop Date Status Note LastModified by Organization Details LastModified Time cyclobenzap rine 10 mg tablet TAKE 1 TABLET BY MOUTH EVERY 8 HOURS 11/08 completed Not Available Not Available Not Available Vitamin B-6 25 mg tablet TAKE 1 TABLET BY MOUTH THREE TIMES A DAY FOR 30 DAYS active Not Available Not Available No t Available metronidazo le 500 mg tablet TAKE 1 TABLET BY MOUTH TWICE DAILY FOR 7 DAYS 11/08 completed Not Available Not Available Not Available misoprostol 100 mcg tablet Insert 1 tablet vaginally at bedtime the night before IUD insertion . 04/03 completed Not Available Not Available Not Available diclofenac potassium 50 mg tablet TAKE 1 TABLET BY MOUTH THREE TIMES A DAY NEEDED FOR PAIN 11/08 completed Not Available Not Available Not Available Banophen 25 mg capsule TAKE 1 CAPSULE BY MOUTH EVERY 8 HOURS NEEDED FOR NAUSEA/IN SOMNIA FOR 30 DAYS 01/18 completed Not Available Not Available Not Available ibuprofen 600 mg tablet TAKE 1 TABLET BY MOUTH EVERY 8 HOURS WITH FOOD NEEDED 11/08 completed Not Available Not Available Not Available medroxyprog esterone 150 mg/mL intramuscul ar suspension 04/03 completed Not Available Not Available Not Available azithromyci n 500 mg tablet TAKE 2 TABLETS BY MOUTH AT ONE TIME 11/08 completed Not Available Not Available Not Available Sleep Aid (doxylamine ) 25 mg tablet TAKE 1 TABLET BY MOUTH EVERY DAY AT BEDTIME FOR 30 DAYS 11/08 completed Not Available Not Available Not Available M-Antelmo Plus 27 mg iron-1 mg tablet TAKE 1 TABLET BY MOUTH EVERY DAY active Not Available Not Available No t Available Aurovela 24 Fe 1 mg-20 mcg (24)/75 mg (4) tablet TAKE 1 TABLET BY MOUTH EVERY DAY 11/04 completed Not Available Not Available Not Available Vitals Date Recorded Body weight Systolic blood pressure Diastolic blood pressure Provider Name and Address Organization Details Last Updated DateTime 01/19/2024 68590.7290 3 g 121 mm[Hg] 77 mm[Hg] Maliha Holt [facility] 01/19/2024 10:37:53 Date Recorded Body height Body mass index (BMI) Body mass index (BMI) Percentile per age and sex Body weight Systolic blood pressure Diastolic blood pressure Provider Name and Address Organization Details Last Updated DateTime 5 170.18 cm 35.6 kg/m2 97 % 712735. 05182 g 102 mm[Hg] 61 mm[Hg] Maliha Holt [facility] 5 16:01:47 Date Recorded Body height Body mass index (BMI) Percentile per age and sex Body mass index (BMI) Body weight Systolic blood pressure Diastolic blood pressure Provider Name and Address Organization Details Last Updated DateTime 5 170.18 cm 97 % 35.6 kg/m2 068803. 49107 g 116 mm[Hg] 66 mm[Hg] Maliha Gardnerer [facility] 5 12:12:45 Social History Question Answer Notes LastModified by Organizat ion Details LastModified Time Tobacco Smoking Status Never Smoker Sravani patten, [facility] 04/04/2021 12:33:06 What Is Your Level Of Alcohol Consumption? None [email or web address] Information not available 04/04/2021 Are You Blind Or Do You Have Difficulty Seeing? No [email or web address] Information n ot available 04/04/2021 What Is Your Level Of Caffeine Consumption? Occasional [email or web address] Information not available 04/04/2021 In The 14 Days Before Symptom Onset, Have You Had Close Contact With A Laboratory-confirm ed COVID-19 While That Case Was Ill? No [email or web address] Information n ot available 04/04/2021 In The 14 Days Before Symptom Onset, Have You Had Close Contact With A Person Who Is Under Investigation For COVID-19 While That Person Was Ill? No [email or web address] Information not available 04/04/2021 Have You Been To An Area Known To Be High Risk For COVID-19? No [email or web address] Information not available 04/04/2021 Are You Deaf Or Do You Have Serious Difficulty Hearing? No [email or web address] Information not available 04/04/2021 What Type Of Diet Are You Following? REGULAR [email or web address] Information n ot available 04/04/2021 Do You Use Your Seat Belt Or Car Seat Routinely? Yes [email or web address] Information not available 04/04/2021 Do You Have Smoke And Carbon Monoxide Detectors In Your Home? Yes [email or web address] Information not available 04/04/2021 Do You Feel Stressed (tense, Restless, Nervous, Or Anxious, Or Unable To Sleep At Night)? [id number] [email or web address] Information not available 04/04/2021 Do You Use Any Illicit Or Recreational Drugs? No [email or web address] Information not available 04/04/2021 Do You Use Sunscreen Routinely? Yes [email or web address] Information not available 04/04/2021 Has Tobacco Cessation Counseling Been Provided? No [email or web address] Information not available 04/04/2021 Do You Or Have You Ever Used Any Other Forms Of Tobacco Or Nicotine? No [email or web address] Information not available 04/04/2021 Sex: Unknown Functional Status Question Answer Note LastModified by Organizat ion Details LastModified Time Do you have difficulty walking or climbing stairs? No [email or web address] Information not available 04/04/2021 Are you able to walk? YESWOREST [email or web address] Information not available 04/04/2021 Are you able to care for yourself? Yes [email or web address] Information not available 04/04/2021 Do you have difficulty dressing or bathing? No [email or web address] Information not available 04/04/2021 What is your exercise level? Occasional [email or web address] Information not available 04/04/2021 Mental Status None recorded. Family History Relationship Description Onset Age of this Age Resolved Age Notes LastModified by Organization Details LastModified Time Father No current problems or disability Not available 03/17 18:32:04 Mother No current problems or disability [email or web address] Not available 03/17 18:32:04 Medical History Condition Response Allergies (Food, seasonal, environmental ) N Other N Breast Cancer N Drug/Latex Allergies/Reactions N Blood Transfusion N Dermatologic Disorders N Lung Disease N Defects or Inherited Disease N Breast Problem N Gestational Diabetes N Hematologic disorders N Anesthesia Complications N History of STI Y Deep Vein Thrombosis N Polycystic ovary syndrome N Anxiety Disorder N Autoimmune disease N Arthritis N Infertility N Polyps N Acid Reflux (GERD) N History of abnormal pap N Cancer N Stroke N Varicosities N Neurologic/Epilepsy N Endometriosis N High Cholesterol N Headaches N Fibromyalgia N Kidney Disease N Heart Problems N Kidney or Bladder Problems N Thyroid Problems N GI Problems N Eating Disorder N Anemia N Art (IVF or FET) N Psychiatric Illness N Ovarian Cancer N Diabetes N Pulmonary (TB, Asthma) N Hepatitis/Liver Disease N No Past Medical History N Eczema N Urinary Tract Infection N Abuse/Domestic Violence N Asthma N Trauma/Violence N Depression/ depression N Heart Disease N Pre-Eclampsia N Hypertension N Osteoporosis N Thrombophilias N Gynecological History Statement/Question Response Flow Light Date of Last Mammogram Date of LMP 08/28/2023 STIs/STDs Yes HPV Vaccine Y Duration of Flow (days) 3 Current Control Method Are cycles usually normal N Most Recent Bone Density Sexually Active? Y Menses Monthly N Age of first menstrual cycle 9 Date of Last Pap Smear Sexual Problems? N LMP Definite Obstetrics History GPAL:G 1 P 0 0 0 0 Type Value Living 0 Total 1 Past Encounters Encounter ID Performer Location Encounter Start Date Encounter Closed Date Diagnosis/Indication Diagnosis SNOMED-CT Code Diagnosis ICD10 Code Diagnosis Note [id number] Jasmyne Lockett , [facility] [address] [address] 02/25/2021 15:24:52 02/26/2021 15:59:34 Contraception care management 556489714 Z30.9 Discussed all control options and pt would like mirena IUD. I have discussed in detail all risks and benefits including risk of infection and perforatio n. She understand s she will need to contact office with next menses or may abstain, complete serum HCG day before placement, if neg can have IUD placed next day. Aware of need to verify with insurance device coverage. Literature given. All questions answered to patient satisfacti on.Still within Depo window last injection 01/04/2021 .Will complete UTP today and then abstain and return 03/04 @ 1pm for IUD mirena insertion. Sign release for Dr. Canales' s office so we have records.Wi ll complete STD urine sent Time spent in visit is a total of 32 mins with at least 50% of visit consisting of counseling and review of plan of care.Addit ional precaution emmett measures were taken to minimize potential exposure to the Covid-19 virus during this patient? s visit, including available hand calculating machine operator upon arrive, temperatur e check and being asked a series of screening questions. All staff wore face coverings during this encounter, as well as provided additional cleaning and sanitizing of all surfaces, including countertop s, pens, chairs, door handles, light switches, etc, prior to and following the patient? s visit. [id number] [facility] [address],[place] [address] 04/04/2021 12:11:40 04/04/2021 13:07:31 Venereal disease screening 101595793 Z11.3 Urine sent for VINAY.Will contact with maryShe updated her partner but she is no longer with this person so is unsure if they got treated or not.She is doing well, no sx's. Contracept [facility] management 315263993 Z30.9 Discussed all control options in great detail. Pt would like to start ocp. She is aware of the risks and benefits. She does not have any medical condition that is contraindi cated with the use of estrogen containing control. Pt will start her pills on the first tuesday following the start of her period. She is aware it is not effective for control the first month. She is also aware of the importance of taking at the same time every day. Encouraged use of condoms as the pill does not protect against STD's. Will return in 3 months for med check. Consent was read and signed. Pt verbalized understand ing. RTO x 3mos med checkUPT is neg today.Has not been SA >1.5mosJus t outside of her Depo window so periods have not returned yet.Will start her OCP since UPT is neg today. [id number] Consuelo Zabala [facility] [address],[place] [address] 11/08/2023 10:40:26 11/08/2023 12:49:36 test positive 425402941 Z32.01 [id number] Marcus Figueroa MD [facility] [address],[place] [address] 11/09/2023 14:14:14 11/09/2023 15:55:33 Amenorrhea 33491986 N91.2 [id number] Brigida Hoffmann [facility] [address],[place] [address] 12/01/2023 11:05:41 12/01/2023 11:41:02 screening 158357429 Z36.82 Z3A.13 [id number] Maliha Holt [facility] [address],[place] [address] 12/01/2023 11:06:09 12/01/2023 12:40:34 Routine care 859312444 Z34.91 Gestation period, 12 weeks 08124631 Z3A.12 [id number] Marcus Figueroa MD [facility] [address],[place] [address] 12/29/2023 12:25:10 12/29/2023 12:53:13 Routine care 616727416 Z34.91 [id number] [facility] [address],[place] [address] 01/19/2024 09:29:51 01/19/2024 10:34:50 screening for malformation 976364847 Z36.3 Z3A.20 [id number] Marcus Figueroa MD [facility] [address],[place] [address] 01/19/2024 09:33:22 01/19/2024 11:11:46 Routine care 136736256 Z34.91 [id number] Brigida Hoffmann [facility] [address],[place] [address] 02/16/2024 15:08:47 02/16/2024 15:46:27 Uterine size for dates discrepancy 596291458 O26.842 Z3A.23 [id number] Marcus Figueroa MD [facility] [address],[place] [address] 02/16/2024 15:09:15 02/16/2024 16:32:09 Routine care 049983817 Z34.91 [id number] Marcus Figueroa MD [facility] [address],[place] [address] 03/15/2024 11:52:46 03/15/2024 14:23:10 Routine care 946037558 Z34.91 Health Concerns Section Related Observation LastModified by Organization Detai ls LastModified Time None Recorded Concern Status LastModified by Organization Details LastModified Time None Recorded Advance Directives Directive None Recorded Payers Encounter Date Sequence Insurance Name Policy Number Policy Hicks Covered Member ID Hicks Member ID Guarantor Name 01/19/2024 1 [employer] [place] AFTER 2020 (MEDICAID REPLACEMENT - HMO) Rosalia T Green [id number] Rosalia T Green 01/19/2024 1 [employer] [place] ([place]ICA[place] REPLACEMENT - HMO) Rosalia T Green [id number] Rosalia T Green 02/16/2024 1 [employer] (MEDICAID HMO) [id number] Rosalia T Green [id number] Rosalia T Green 02/16/2024 1 [employer] (MEDICAID HMO) [id number] Rosalia T Green [id number] Rosalia T Green 03/15/2024 1 [employer] (MEDICAID HMO) [id number] Rosalia T Green [id number] Rosalia T Green OBGyn Episode Ob Episode Information Episode Created Date Number of Fetuses Patient Bloodtype Patient rh Status Prepregnancy Weight lbs Domestic Partner Domestic Partner Phone Father Name Plush Weaver Status 12/01/19 24 1 B Positive 209 Darreon OPEN Fetus Data First Name Last Name Admitted to NICU Weight (g) Sex Living Outcome Pediatric Complications Fetus ID Race Codes Race Delivery Type [id number] Problems Problem Notes Problem Name Start Date End Date Resolution Snomed Code Not e Obesity 149424948 start ASAw eekly testing at 37wks with uncertain dates 708405225 originally w as dated using last menstrual period, this gave significant growth restriction at the 20 week ultrasound , very symmetric,. further discussion indicated irregular periods . To use 9 week ultrasound and observe carefully. Growth ultrasound in 3 weeks Ritchie Calculation Initial Ritchie Date Initial Exam Date Initial Exam Provider Initial Ultrasound Date Last Menstrual Period Date Ultra Sound Weeks Gestation 12/01/2023 11/08/2023 08/28/2023 9 Eighteen To Twenty Week Ritchie Update Ultra Sound Date Fundal Height At Umbil Quickening Date Ultra Sound Latest Weeks Gestation Final Ritchie Confirmed By Final Ritchie Confirmed Date Final Ritchie Date Ultra Sound Latest Days Gestation 0 [email or web address] 01/19/2024 06/09/19 25 0 Pre-antelmo Flowsheet Flowsheet Date 12/01/2023 Schmidt Score Blood Edema Fundus Height Fundus Units Glucose Ketones Leukocytes Nitrite Labor Signs Protein Cervic Dilation Cervic Effacement Cervic Station Type Weight in lbs Pre/Post Dialysis Refused Weight 207.615774273994 BP Diastolic BP Location Tested BP Systolic BP Type 81 L arm 146 sitting Fetus Heart Rate Present Fetus Movement Comments this patient is a 18-year-ol d primiparous female at 13 weeks' gestation who presents for initial care. She has a history of term vaginal births. Her medical, surgical, obstetric history is unremarkable. She is vaccinated. She was given precautions recommendations for . We talked about vaccines in . Talked about care in detail. She is having genetic testing. She had a normal 12 week ultrasound. To begin routine care. Flowsheet Date 12/29/2023 Schmidt Score Blood Edema Fundus Height Fundus Units Glucose Ketones Leukocytes Nitrite Labor Signs Protein Cervic Dilation Cervic Effacement Cervic Station Type Weight in lbs Pre/Post Dialysis Refused 218.146080116276 BP Diastolic BP Location Tested BP Systolic BP Type 71 L arm 121 sitting Fetus Heart Rate Present A 140 Fetus Movement A Yes Comments no complaints, no problems, routine care, no contractions, no vaginal bleeding, no loss of fluid, no cramping Flowsheet Date 01/19/2024 Schmidt Score Blood Edema Fundus Height Fundus Units Glucose Ketones Leukocytes Nitrite Labor Signs Protein Cervic Dilation Cervic Effacement Cervic Station Type Weight in lbs Pre/Post Dialysis Refused BP Diastolic BP Location Tested BP Systolic BP Type Fetus Heart Rate Present Fetus Movement Comments Flowsheet Date 01/19/2024 Schmidt Score Blood Edema Fundus Height Fundus Units Glucose Ketones Leukocytes Nitrite Labor Signs Protein Cervic Dilation Cervic Effacement Cervic Station Type Weight in lbs Pre/Post Dialysis Refused 219.910871925755 BP Diastolic BP Location Tested BP Systolic BP Type 77 L arm 121 sitting Fetus Heart Rate Present A 154 Fetus Movement A Yes Comments originally was dated using l ast menstrual period, this gave significant growth restriction at the 20 week ultrasound , very symmetric,. further discussion indicated irregular periods . To use 9 week ultrasound and observe carefully. Growth ultrasound in 3 weeks Flowsheet Date 02/16/2024 Schmidt Score Blood Edema Fundus Height Fundus Units Glucose Ketones Leukocytes Nitrite Labor Signs Protein Cervic Dilation Cervic Effacement Cervic Station Type Weight in lbs Pre/Post Dialysis Refused BP Diastolic BP Location Tested BP Systolic BP Type Fetus Heart Rate Present Fetus Movement Comments Flowsheet Date 02/16/2024 Schmidt Score Blood Edema Fundus Height Fundus Units Glucose Ketones Leukocytes Nitrite Labor Signs Protein Cervic Dilation Cervic Effacement Cervic Station Type Weight in lbs Pre/Post Dialysis Refused 227.874005910833 BP Diastolic BP Location Tested BP Systolic BP Type 61 L arm 102 sitting Fetus Heart Rate Present A 144 Fetus Movement A Yes Comments no complaints, no problems, routine care, no contractions, no vaginal bleeding, no loss of fluid, no cramping Flowsheet Date 03/15/2024 Schmidt Score Blood Edema Fundus Height Fundus Units Glucose Ketones Leukocytes Nitrite Labor Signs Protein Cervic Dilation Cervic Effacement Cervic Station Type Weight in lbs Pre/Post Dialysis Refused 227.958779299601 BP Diastolic BP Location Tested BP Systolic BP Type 66 L arm 116 sitting Fetus Heart Rate Present A 145 Fetus Movement A Yes Comments no complaints, no problems, routine care, no contractions, no vaginal bleeding, no loss of fluid, no cramping Menstrual History Last Menstrual Date Menses Monthly On Bcp Conception Prior Menses Frequency Hcg Plus Date Menarche Onset Age 0708/28/2023 true Delivery Information Delivery Date Delivery Type Labor Anesthesia Weeks Gestation Incision Type Labor Labor Length Hrs Delivered By Post Complications Tubal Sterilization Discharge Date Comments Discharge Information Feeding Method Contraceptive Method Maternal HG B and HCT Levels
--- OUTSIDE RECORDS SUMMARY | 2024-03-20 13:17 | XMS_ITS | Continuity of Care Document ---
Author Organization [facility] Address [address] [place] [address] [address] [place] [address] Phone Care Team Providers Care Poultry Service Technician Name Role Phone Arredondo OD, Carlos Unavailable Unavailable Procedures Procedure Date Eye Exam, New Patient Refraction Advance Directives Directive Yes / No Effective Date File Name No Information Encounters Encounter Description Practice Location Reason(s) For Visit Diagnoses Date Provider Providers Copied on Encounter [facility], [address] [place] [address] [address], [place], [place], [id number], [place] tel:[phone] [facility] [place] No Information 5-200 9 Arredondo OD Carlos. [address] [facility] [place] , [address], [place], [address], [place]. tel:[phone] Family History Family Member Type Diagnosis Age At Onset No Information Payers Payer name Insurance type Covered alliance party ID Authoriza tion(s) Medicaid [facility] [id number] Social History Type Description Quantity Date Captured Comments Sex Female Smoking Status No Information Chief Complaint And Reason For Visit No Information Reason For Referral Reason For Referral No Information History Of Present Illness Encounter Date Complaint History Of Prese nt Illness No Information Functional Status Date Functional Assessmen t No Information Instructions Date Instruction Additional Infor mation No Information Assessments Type Assessment Date No Information Patient Care Teams Name Effective Dates (start - stop) Status Members No Information
[2024-03-20 13:48] VITALS: BP 127/67; PULSE 88; RESP 16; TEMP 37.1; O2SAT 100
[2024-03-20 17:04] LABS: Influenza A QL RT-PCR Positive (Negative); Influenza B QL RT-PCR Negative (Negative); RSV RNA, RT-PCR Negative (Negative); SARS-CoV-2 RNA PCR Negative (Negative)
--- NOTE | 2024-03-20 18:55 | PC.NURSE ---
at nurses station raising her voice because she has not been seen. Pt then made phone call and walked out of the ED
--- OUTSIDE RECORDS SUMMARY | 2024-03-20 19:22 | XMS_ITS | Clinical Summary ---
Author Organization [facility] Address [address] [place] [address] Care Team Providers Care Supervisor Plastering Name Role Phone Unavailable Primary Care Provider Unavailabl e Source Comments [facility],non-owned Affiliates and Associated Physician Practices is amultiple site organization consisting of ambulatory clinics and hospital sitesin [place], [place], [place] and [place]. This disclosure is being madepursuant to the Care Everywhere program and may not contain all information available regarding this patient. Last updated 17.[facility] Allergies No known active allergies Medications * [...] fluticasone propionate (FLONASE) 50 MCG/ACT nasal spray Gail 1 Gail into each nostril once daily 1 Bottle [...] of cough and wheeze, afebrile. Transferred [place] [facility] [place]. CXR in ED showed RML [...] months Assessment & Plan (03/05/2015 5:17 PM CREDIT RELATIONSHIP MANAGER): Asthma - classified as Moderate persistent. This [...]
--- OUTSIDE RECORDS SUMMARY | 2024-03-20 19:22 | XMS_ITS | Continuity of Care Document ---
Author Organization [facility] Address [address] [place] [address] [address] [place] [address] Phone Care Team Providers Care Condenser Tube Tender Name Role Phone Arredondo OD, Carlos Unavailable Unavailable Procedures Procedure Date Eye Exam, New Patient Refraction Advance Directives Directive Yes / No Effective Date File Name No Information Encounters Encounter Description Practice Location Reason(s) For Visit Diagnoses Date Provider Providers Copied on Encounter [facility], [address] [place] [address] [address], [place], [place], [id number], [place] tel:[phone] [facility] [place] No Information 5-200 9 Arredondo OD Carlos. [address] [facility] [place] , [address], [place], [address], [place]. tel:[phone] Family History Family Member Type Diagnosis Age At Onset No Information Payers Payer name Insurance type Covered green party ID Authoriza tion(s) Medicaid [facility] [id number] Social History Type Description Quantity Date Captured [...]
--- OUTSIDE RECORDS SUMMARY | 2024-03-20 19:22 | XMS_ITS | Patient Health Summary ---
Author Organization [facility] Address [address] [place] [address] Care Team Providers Care Data Control Assistant Name Role Phone Unavailable Primary Care Provider Unavailabl e Note from [facility],non-owned Affiliates and Associated Physician Practices is amultiple site organization consisting of ambulatory clinics and hospital sitesin [place], [place], [place] and [place]. This disclosure is being madepursuant to the Care Everywhere program and may not contain all information available regarding this patient. Last updated 17.[facility] Allergies No known active allergies Medications * [...] propionate (FLONASE) 50 MCG/ACT nasal spray(Started 12/02/2015) [place] 1 [place] into each nostril once daily 6 refills [...] for with uncertain dates, antepartum ([facility]), Supervision of normal first , antepartum ([facility]), Encounter for ultrasound ([facility]) * PATHOLOGY/CYTOLOGY REPORT ORDER(Performed 10/25/2012) * TONSILLECTOMY AND ADENOIDECTOMY(Performed 10/24/2012) Performed for Hypertrophy of tonsil with adenoids, Unspecified sleep apnea * GROSS EXAM PATHOLOGY (STL)(Performed 10/24/2012) Performed for Tonsillar and adenoid hypertrophy, JOSHUA (obstructive sleep apnea) * BEDSIDE SPIROMETRY(Performed 05/31/2012) * ALLERGEN COCKROACH IGE(Performed 11/09/2011) Performed for Cough, Status asthmaticus ([facility]) * ALLERGEN MOUSE URINE IGE(Performed 11/09/2011) [...] CDT Narrative 11/21/2023 8:16 AM CDT ? [facility] ?PHONE: ??FAX: Pat. Name: ?KYLE HONEYCUTT Pat. No: ?[id number] Study Date: ?? 11/21/2023 ??7:47am , Age: ? 2005, 18 Pregnancies: ?? 1 Height: ? 66 in Weight: ? 205 lb LMP: ?Unknown GA by US: ? 11w6d ?? ARIADNA: 06/05/2024 GA Selected: ??11w6d (Sonographic) ARIADNA: ?06/05/2024 Referring MD: Jenifer Zuleta MD Practicing Urologist: ??Chiqui Bal RDMS CPT4: ? 9[address] BMI: ?33.08 Hist/Ind: ? Dating ?Uncertain LMP ?Low Risk NIPT (per patient) ?Marijuana Use MEASUREMENTS & AGE ? GROWTH EVALUATION Measurement ??GA ? Range ? Srce %for GA Ratios ----- ---- ------- CRL ??5.1 cm 11w6d ([id number]) Hadl CRL 50% GA for sonogram 11w6d ([id number]) based on (CRL) Avg ? Heart Rate: [...] <Electronic Signature> ??11/21/2023 08:16am Jenifer Zuleta MD [facility] ORDERABLES * PATHOLOGY/CYTOLOGY REPORT ORDER (10/25/2012 6:54 PM CDT) Narrative 10/25/2012 6:54 PM CDT Ordered by an unspecified provider. Transcriptions Document, Scanned - 10/25/2012 6:54 PM CDT Scanned Document LAB - PATHOLOGY/CYTO LOGY ORDERABLES * GROSS EXAM PATHOLOGY (STL) (10/24/2012 12:30 PM CDT) Case Report Surgical Pathology Report ? Case: [id number] ? Authorizing Provider: ??Lakeshia Marie MD ? Ordering Provider: ?? Lakeshia Marie MD ? Ordering Location: ? [facility] ? Collected: ? 10/24/2012 12:30 PM ? Pathologist: ? Noam Aldrich MD ?Received: ?10/24/2012 ??2:46 PM ?Signed Out: ?10/25/2012 10:16 AM (Final) ? Specimen: ?Tonsil(s) ? 10/25/2012 10:16 AM [facility] Final Diagnosis GROSS DIAGNOSIS: PALATINE TONSILS. 10/25/2012 10:16 AM [facility] Clinical History The patient is a 7-year-old girl with adenotonsillar hypertrophy and clinical suspicion of obstructive sleep apnea. 10/25/2012 10:16 AM [facility] Gross Description Submitted fresh in one [...] sections are taken. (ESTEPHANIE/thaddeus) 10/25/2012 10:16 AM [facility] Disclaimer This case has been personally reviewed and interpreted by the attending (teaching) pathologist. 10/25/2012 10:16 AM [facility] Synoptic Report 10/25/2012 10:16 AM [facility] Pathology/Cytolo gy SPECIMEN FROM TONSIL / Unknown 10/24/2012 12:30 PM CDT 10/24/2012 2:46 PM CDT Lakeshia Marie MD LAB - PATHOLOGY/CYTO LOGY ORDERABLES [facility] [place] [address] * (ABNORMAL) ALLERGEN INHALANT COMPREHENSIVE PROFILE (11/09/2011 4:40 PM CDT) IgE Total 138 2 - 403 IU/mL 11/11/2011 8:11 PM CDT [facility] Comment: REFERENCE INTERVAL: Immunoglobulin E, Serum Access complete set of age- and/or gender-specific reference intervals for this test in the [facility] Test Directory ([facility]). Allergen Common Ragweed <0.10 <=0.34 kU/L 11/11/2011 8:11 PM CDT [facility] Allergen Mugwort <0.10 <=0.34 kU/L 11/11/2011 8:11 PM CDT [facility] Allergen French Plantain 0.12 <=0.34 kU/L 11/11/2011 8:11 PM CDT [facility] Allergen Cobb's Quarters <0.10 <=0.34 kU/L 11/11/2011 8:11 PM CDT [facility] Allergen Dominican Thistle <0.10 <=0.34 kU/L 11/11/2011 8:11 PM CDT [facility] Allergen Bermuda Grass <0.10 <=0.34 kU/L 11/11/2011 8:11 PM CDT [facility] Allergen Raleigh Grass Perennial <0.10 <=0.34 kU/L 11/11/2011 8:11 PM CDT [facility] Allergen French Grass <0.10 <=0.34 kU/L 11/11/2011 8:11 PM CDT [facility] Allergen Nisreen Grass <0.10 <=0.34 kU/L 11/11/2011 8:11 PM CDT [facility] Allergen Colt Grass <0.10 <=0.34 kU/L 11/11/2011 8:11 PM CDT [facility] Allergen Mountain Lafourche <0.10 <=0.34 kU/L 11/11/2011 8:11 PM CDT [facility] Allergen Montrose <0.10 <=0.34 kU/L 11/11/2011 8:11 PM CDT [facility] Allergen Elm 0.12 <=0.34 kU/L 11/11/2011 8:11 PM CDT [facility] Allergen Knoxville Tree 0.10 <=0.34 kU/L 11/11/2011 8:11 PM CDT [facility] Allergen Weldon Tree <0.10 <=0.34 kU/L 11/11/2011 8:11 PM CDT [facility] Allergen Boston Tree <0.10 <=0.34 kU/L 11/11/2011 8:11 PM [...] Score See Note 2 8:11 PM CDT [facility] Comment: REFERENCE INTERVAL: Allergen, Interpretation Less than [...] Soliz MD LAB - SEROLOGY ORDER KEYLA [facility] [address] [place] [address] * ALLERGEN COCKROACH IGE (11/09/2011 4:40 PM CDT) Allergen Cockroach Cambodian <0.10 <=0.34 kU/L 11/11/2011 8:11 PM CDT [facility] Comment: Allergen, Insect & Venom, Cockroach, Cambodian ? Effective 01/05/2011 Due to the prolonged unavailability of testing material for IgE-specific antibody to Cambodian Cockroach ([facility] test code 4124515), [facility] has implemented alternative test material. According to the kit packing machine pilot can router, IgE-specific antibody to Cambodian Cockroach is also reliably detected using testing material for Bengali Cockroach ([facility] test code 7467996). Bengali Cockroach IgE has been substituted. INTERPRETIVE INFORMATION: ALLERGEN, Cambodian Cockroach Analyte specific reagents (ASR) are used in many laboratory tests necessary for standard medical care and generally do not require U.S. Food and Drug Administration (FDA) approval or clearance. This test was developed and its performance characteristics determined by [employer]. The U.S. Food and Drug Administration has [...] - CHEMISTRY ORDAminah DICKERSON Performing Organization Address [facility] Co de Phone Number [employer] [address] [place] [address] * ALLERGEN MOUSE IGE (11/09/2011 4:40 PM CDT) Allergen Mouse Urine IgE <0.10 <=0.34 kU/L 11/11/2011 8:11 PM CDT [facility] Bettery Blood specimen (specimen) BLOOD SPECIMEN / Unknown 11/09/2011 4:40 PM CDT 11/09/2011 4:51 PM CDT Akbar Soliz MD LAB - SEROLOGY ORDER KEYLA Performing Organization Address [facility] Co de Phone Number [facility] [employer] [address] [place] [address] * CULTURE MRSA (11/08/2011 5:52 AM CDT) Culture SEE BELOW 11/09/2011 7:42 AM CDT [facility] Comment: - Final - NO growth of Staphylococcus ?? aureus (MRSA) Miscellaneous samples (specimen) SPECIMEN FROM NASAL FOSSAE / Unknown 11/08/2011 5:52 AM CDT 11/08/2011 6:15 AM CDT Morelia Galo MD LAB - MICROBIOLOGY ORDERABLES [facility] [address] [place] [address], [facility] * (ABNORMAL) BLOOD GASES CAP + COOX PANEL (11/08/2011 3:27 AM CDT) pH Capillary 7.406 7.35 - 7.45 pH 11/08/2011 3:50 AM T [facility] pCO2 Capillary 28.5(L) 32 - 45 mm hg 11/08/2011 3:50 AM [facility] pO2 Capillary 61.0(L) 83 - 108 mm hg 11/08/2011 3:50 AM [facility] O2 Saturation Capillary 92.6(L) 95 - 99 % 11/08/2011 3:50 AM [facility] BE Capillary -6.3(L) -2 - 2 mmol/L 11/08/2011 3:50 AM [facility] Carboxyhemoglobin Capillary 1.0(H) 0 - 0.8 % 11/08/2011 3:50 AM [facility] Temp 37.0 C 11/08/2011 3:50 AM [facility] Oxyhemoglobin Capillary 90.7(L) 94 - 98 % 11/08/2011 3:50 AM [facility] Methemoglobin Capillary 1.1(H) 0.2 - 0.6 % 11/08/2011 3:50 AM [facility] O2 Content Capillary 13.8(L) 15 - 23 mg/dL 11/08/2011 3:50 AM [facility] P50 Capillary 24.36(L) 25.3 - 26.8 mm hg 11/08/2011 3:50 AM [facility] Hemoglobin Capillary 10.8(L) 11.5 - 15.5 gm/dL 11/08/2011 3:50 AM [facility] Blood specimen (specimen) CAPILLARY BLOOD / Unknown 11/08/2011 3:27 AM CDT 11/08/2011 3:33 AM CDT Narrative [facility] - 11/08/2011 3:50 AM CDT NOTE: Reference ranges are for Arterial Blood. Otilia L Ale DO LAB - BLOOD GASES OR DERABLES Performing Organization Address City/State/[facility] Co de Phone Number [facility] [address] [address] * XR CHEST PA AND LATERAL (11/07/2011 [...] - 105 mg/dL 11/07/2011 10:41 PM CDT [facility] Sodium 140 136 - 145 mmol/L 11/07/2011 10:41 PM CDT [facility] Potassium 2.8(LL) 3.5 - 5.1 mmol/L 11/07/2011 10:41 PM CDT [facility] Chloride 107 98 - 107 mmol/L 11/07/2011 10:41 PM CDT [facility] CO2 15(L) 20 - 28 mmol/L 11/07/2011 10:41 PM T [facility] Calcium 9.54 9.12 - 10.48 mg/dL 11/07/2011 10:41 PM T [facility] Anion Gap 18 5 - 20 mmol/L 11/07/2011 10:41 PM T [facility] BUN 8.4 6.7 - 19.6 mg/dL 11/07/2011 10:41 PM T [facility] Creatinine 0.52(L) 0.53 - 0.80 mg/dL 11/07/2011 10:41 PM T [facility] eGFR by MDRD ml/min/1. 73m2 11/07/2011 10:41 PM T [facility] Comment:eGFR calculations ar e not performed for children under 18 years old. eGFR by MDRD ml/min/1. 73m2 11/07/2011 10:41 PM T [facility] Comment:eGFR calculations ar e not performed for children under 18 years old. Blood specimen (specimen) BLOOD SPECIMEN / Unknown 11/07/2011 10:05 PM CDT 11/07/2011 10:15 PM CDT Otilia Aguilera DO LAB - CHEMISTRY LORETTA DICKERSON Performing Organization Address [facility] Co de Phone Number [facility] [address] [place] [address] * STREP A SCREEN DIRECT W RFLX STREP A CULTURE (11/07/2011 9:07 PM CDT) Strep A Rapid Negative Negative 11/07/2011 9:38 PM CDT [facility] Throat swab (specimen) ENTIRE THROAT (SURFACE REGION OF NECK) / Unknown 11/07/2011 9:07 PM CDT 11/07/2011 9:27 PM CDT Narrative [facility] - 11/07/2011 9:38 PM CDT Test has reflexed to a Strep A culture. Eze Dean MD LAB - MICROBIOLOGY O RDERABLES Performing Organization Address [facility]/ZIP Co de Phone Number [facility] [address] [place] [address] * CULTURE STREP GROUP A (11/07/2011 9:07 PM CDT) Culture SEE BELOW 11/10/2011 4:15 AM CDT [facility] Comment: - Final - CULTURE NO growth of beta-hemolytic ?? strep Group A Miscellaneous samples (specimen) ENTIRE THROAT (SURFACE REGION OF NECK) / Unknown 11/07/2011 9:07 PM CDT 11/07/2011 9:27 PM CDT Eze Dean MD LAB - MICROBIOLOGY O RDERABLES [facility] [address] [place] [address] KIET Ervin [address]
--- OUTSIDE RECORDS SUMMARY | 2024-03-20 19:22 | XMS_ITS | Referral Summary ---
Author Organization [facility] Address [address] [place] [address] Care Team Providers Care Assessment Services Manager Name Role Phone Unavailable Primary Care Provider Unavailabl e Source Comments [facility],non-owned Affiliates and Associated Physician Practices is amultiple site organization consisting of ambulatory clinics and hospital sitesin [place], [place], [place] and [place]. This disclosure is being madepursuant to the Care Everywhere program and may not contain all information available regarding this patient. Last updated 17.[facility] Allergies No known active allergies Medications * [...] fluticasone propionate (FLONASE) 50 MCG/ACT nasal spray Nap[place]ine 1 [place]av[place] into each nostril once daily 1 Bottle [...] of cough and wheeze, afebrile. Transferred to [facility] from [place]. CXR in ED showed RML [...] months Assessment & Plan (03/05/2015 5:17 PM BONDING AND COMPOSITE FABRICATOR): Asthma - classified as Moderate persistent. This [...]
--- OUTSIDE RECORDS SUMMARY | 2024-03-20 19:22 | XMS_ITS | Data Portability ---
Author Organization YVETTE SHANARadha Cox Address [address] [place] [address] Care Team Providers Care Senior Informatica Etl Developer Name Role Phone WILVER ELI Secondary Connector Armature ELIJAH Holt Pants Presser Automatic Assessment Encounter Date Assessment Date Assessment LastModified by Organization Details LastModified Time 05/12/2022 05/12/2022 JIMMY Gates Not available 05/12/2022 15:35:40 11/07/2023 11/07/2023 Follow-up in 4 weeks [email or web address] Not available 11/13/2023 16:41:43 Plan of Treatment Reminders Order Date Submit Date Provider Last Modified By Organization Details Last Modified Time Details Appointments None recorded . Lab bacteria l vaginosi s score, JUAN+prob e, vaginal fluid (OBS) 2022 023 SKYLA [facility], [facility] [facility], [address], [place], [address], 3 16:08:15 pregnanc y test, urine 2022 023 [email or web address] In-Office Order, Internal Use Only DO Not Attach Compendium DO Not Attach Compendium, Do Not Delete/merge, [id number] 3 12:10:47 chlamydi a trachoma tis + neisseri a gonorrho eae + trichomo dawna vaginali s DNA panel, JUAN+prob e, unspecif ied specimen 2022 023 [facility], [address] [facility] [address], [address], [place], [address], 3 05:10:11 lh + FSH, serum 2022 023 [facility], [address], [address], [place], [address], 3 04:09:33 CBC w/ auto diff 2022 023 [facility], [address] [place], [place] [address]elsa Christos, [address], [place], [address], 3 03:08:10 prolacti n, serum 2022 023 [facility], [address] [place], [place] [address]elsa Sher, [address], [place], [address], 3 04:09:32 CMP, serum or plasma 2022 [facility], [address], [address], [place], [address], 3 03:08:09 TSH, ultra-se nsitive, serum 2022 023 [facility], [address], [address], [place], [address], 3 04:09:31 progeste alvin, serum 2022 023 [facility], [address] [place], [place] [address]elsa Sher, [address], [place], [address], 3 04:09:32 chlamydi a trachoma tis + neisseri a gonorrho eae + trichomo dawna vaginali s DNA panel, JUAN+prob e, unspecif ied specimen 2022 023 SKLYA MANZANARES, [address] [place], [place] [address]jo-annlucilleelsa Sher, [address], [place], [address], 3 04:09:30 panel 2023 024 SKYLA MANZANARES, [facility] [address], [address], [place], [address], 4 09:07:52 hemoglob in S (hbs), presence , blood 2023 024 SKYLA [facility], [facility], [address], [place], [address], 4 09:07:55 varicell a zoster virus IgG Ab, QN, IA, serum 2023 024 SKYLA RUSSELL, [facility] [address], [address], [place], [address], 4 09:07:56 vaginal pathogen s panel, JUAN+prob e, vaginal fluid 2023 024 [facility], [address] [place], [place] [address]elsa Christos, [address], [place], [address], 4 06:17:21 drug screen, urine 2023 024 [facility], [facility], [address], [place], [address], 4 09:07:54 CMP, serum or plasma 2023 024 [facility]ie [facility], [address] [place], [place] [address]elsa Sher, [address], [place], [address], 4 16:19:12 lactate dehydrog enase, QN, lactate to pyruvate reaction , serum or plasma 2023 024 effie [facility], [address] [place], [place] [address]elsa Sher, [address], [place], [address], 4 14:51:49 uric acid, serum or plasma 2023 024 [email or web address] [facility], [address] [facility] [address], [address], [place], [address], 4 14:51:55 PT/INR 2023 024 [email or web address] [facility], [address] [facility], [address], [place], [address], 4 14:52:01 protein: creatini ne ratio, urine 2023 024 [email or web address] [facility], [address] [facility], [address], [place], [address], 4 14:52:07 molecula r diagnost ic overall interpre tation, QL, blood or tissue (OBS) 2023 024 starrelida [facility], [address] [place] [address], [address], [place], [address], 4 14:51:05 chromoso me 13+18+21 +X+Y aneuploi dy, blood 2023 024 [email or web address] [facility], [address] [place] [address], [address], [place], [address], 4 14:51:[address] referral 2023 024 effie Desai MD, 4 [facility] , [address], [address], [place], [address], 4 14:51:20 Procedures None recorded . Surgeries None recorded . Imaging US, obstetri c, 1st trimeste r 2023 024 SKYLA [facility], [address], [place], [address], 4 10:32:50 Medication Orders metronid azole 500 mg tablet 2022 023 [id number], [address] [facility], [place], [address], 4 12:55:24 medroxyp rogester one 150 mg/mL intramus cular suspensi on 2022 023 [facility], [address] [place] [address], [id number], 3 12:02:24 Xulane 150 mcg-35 mcg/24 hr transder mal patch 2022 023 [email or web address] [facility], [address] [facility], [place], [address], 4 10:04:35 Plus (calcium carbonat e) 27 mg iron-1 mg tablet 2023 024 SKYLA [facility], [address], [place], [address], 4 14:30:35 pyridoxi ne (vitamin B6) 25 mg tablet 2023 024 SKYLA [facility], [address], [place], [address], 4 14:29:33 Unisom (doxylam ine) 25 mg tablet 2023 024 SKYLA [facility], [address], [place], [address], 4 14:29:33 diphenhy dramine 25 mg capsule 2023 024 SKYLA [facility] [facility], [address], [place], [address], 16:19:37 Patient TargetsNo targets recorded. Patient Instructions Encounter Date Encounter Id Patient Instructions Last Modified By Organization Details Last Modified Time 06/18/2022 [id number] A healthy lifestyle: care instructions Not available 06/18/2022 11:05:50 JIMMY Crisostomo Discussed with Huma Peralta PA-C Not available 06/18/2022 11:11:02 10/10/2023 [id number] learning about sleeping well [email or web address] Not available 10/10/2023 11:54:30 On the date of this encounter, I saw and examined the patient, personally verifying the bejarano and critical findings in the resident? s note. I reviewed and agree with the resident/fellow? s findings and plan. ~MD Song [facility] [email or web address] Not available 10/18/2023 08:49:30 11/07/2023 [id number] learning about sleeping well [email or web address] Not available 11/07/2023 13:13:13 Attending Physician Attestation I did not personally see or examine the patient with the resident. I was physically present to provide indirect supervision through entire encounter. I have reviewed the documentation and agree with the history, physical findings, work-up, and medical decision making as recorded. Elijah Cardenas MD [email or web address] Not available 11/07/2023 14:13:02 Reason for Referral Pharmacist Referral for Urin e test positive Referring Physician: Jazzy Cummings, Support Analyst, Encounter Date: 10/10/2023 Results Created Date Observation Date Name Description Value Unit Range Abnormal Flag Note LastModifiedBy Organization Detail LastModifiedTime 05/13/1905/14/2022 NUSWA B VG+, HSV atopobium vaginae Modera te - 1 score Not Available [facility] ([facility]) [address] [facility], [place], [address], 05/16/2022 16:08:15 05/13/1905/14/2022 SALA B VG+, HSV bvab 2 High - 2 score abnormal Not Available [facility] ([facility]) [address] [place], [address], 05/16/2022 16:08:15 05/13/19 23 05/14/2022 NUA B VG+, HSV megasphaera 1 High - 2 score abnormal Calcu late total score by justin bergeron the 3 indiv idual bacte rial vagin osis (BV) marke r score s toget her. Total score is inter prete d as follo ws: Total score 0-1: Indic ates the absen ce of BV. Total score 2: Indet ermin ate for BV. Addit ional clini behzad data shoul d be evalu ated to estab hayden a diagn osis. Total score 3-6: Indic ates the prese nce of BV. This test was devel oped and its perfo rmanc e tre cteri stics deter mined by [facility]. It has not been clear ed or appro amira by the Food and Drug Admin istra tion. Not Available [facility] ([facility]) [address] [facility], [place], [address], 05/16/2022 16:08:15 05/13/19 23 05/14/2022 NUA B VG+, HSV veronica albicans, JUAN Negati ve negati ve Not Available [facility] ([facility]) [address] [facility], [place], [address], 05/16/2022 16:08:15 05/13/19 23 05/14/2022 NUA B VG+, HSV veronica glabrata, JUAN Negati ve negati ve Not Available [facility] ([facility]) [address] [place], [address], 05/16/2022 16:08:15 05/13/19 23 05/14/2022 NUA B VG+, HSV trich vag by JUAN Negati ve negati ve Not Available [facility] ([facility]) [address] [facility], [place], [address], 05/16/2022 16:08:15 05/13/19 23 05/14/2022 NUSWA B VG+, HSV chlamydia trachomatis, JUAN Negati ve negati ve Not Available [facility] ([facility]) [address] [place], [address], 05/16/2022 16:08:15 05/13/19 23 05/14/2022 NUSWA B VG+, HSV neisseria gonorrhoeae, JUAN Negati ve negati ve Not Available [facility] ([facility]) [address] [place], [address], 05/16/2022 16:08:15 05/13/19 23 05/16/2022 NUSWA B VG+, HSV hsv 1 JUAN Negati ve negati ve Not Available [facility] ([facility]) [address] [place], [address], 05/16/2022 16:08:15 05/13/19 23 05/16/2022 NUA B VG+, HSV hsv 2 JUAN Negati ve negati ve Not Available [facility] ([facility]) [address] [place], [address], 05/16/2022 16:08:15 06/19/19 23 06/22/2022 CT, NG, TRICH VAG BY JUAN chlamydia by JUAN POSITI VE negati ve abnormal Not Available [facility] ([facility]) [address] [place], [address], 06/22/2022 05:10:11 06/19/19 23 06/22/2022 CT, NG, TRICH VAG BY JUAN gonococcus by JUAN NEGATI VE negati ve Not Available [facility] ([facility]) [address] [place], [address], 06/22/2022 05:10:11 06/19/19 23 06/22/2022 CT, NG, TRICH VAG BY JUAN trich vag by JUAN NEGATI VE negati ve Not Available [facility] ([facility]) [address] [facility], [place], [address], 06/22/2022 05:10:11 06/19/19 23 06/18/2022 pregn adriana test, urine HCG negati ve Not Available In-Office Order Internal Use Only DO Not Attach Compendium DO Not Attach Compendium, Do Not Delete/merge, [id number] 06/18/2022 11:04:47 12/25/1912/24/2022 COMP. METAB OLIC PANEL (14) glucose 85 mg/dL 70-99 Not Available [facility] Department [address] [place] [address], [address], 12/25/2022 03:08:09 12/25/19 23 12/24/2022 COMP. METAB OLIC PANEL (14) BUN 11 mg/dL 6-20 Not Available [facility] Department [address] [place] [address], [address], 12/25/2022 03:08:09 12/25/19 23 12/24/2022 COMP. METAB OLIC PANEL (14) creatinine 0.73 mg/dL 0.76-1 .27 below low normal Not Available [facility] Department [address] [place] [address], [address], 12/25/2022 03:08:09 12/25/19 23 12/24/2022 COMP. METAB OLIC PANEL (14) eGFR 121 >=60 Units for eGFR value s are mL/mi n/1.7 3 The eGFR Calcu latio n has not been valid ated for patie nts under the age of 18. If test resul ts are displ ayed for a patie nt under the age of 18, disre mor that value . Not Available [facility] Department [address] [place] [address], [address], 12/25/2022 03:08:09 12/25/19 23 12/24/2022 COMP. METAB OLIC PANEL (14) BUN/creatini ne ratio 16 9-23 Not Available [facility] Department [address] [place], [address], 12/25/2022 03:08:09 12/25/19 23 12/24/2022 COMP. METAB OLIC PANEL (14) sodium 142 mmol/ L 134-14 4 Not Available [facility] Department [address] [place], [address], 12/25/2022 03:08:09 12/25/19 23 12/24/2022 COMP. METAB OLIC PANEL (14) potassium 4.4 mmol/ L 3.5-5. 2 Not Available [facility] Department [address] [place] [address], [address], 12/25/2022 03:08:09 12/25/19 23 12/24/2022 COMP. METAB OLIC PANEL (14) chloride 106 mmol/ L 96-106 Not Available [facility] Department [address] [place] [address], [address], 12/25/2022 03:08:09 12/25/19 23 12/24/2022 COMP. METAB OLIC PANEL (14) carbon dioxide, total 23 mmol/ L 20-29 Not Available [facility] Department [address] [place], [address], 12/25/2022 03:08:09 12/25/19 23 12/24/2022 COMP. METAB OLIC PANEL (14) calcium 9.6 mg/dL 8.7-10 .2 Not Available [facility] Department [address] [place], [address], 12/25/2022 03:08:09 12/25/19 23 12/24/2022 COMP. METAB OLIC PANEL (14) protein, total 7.3 g/dL 6.0-8. 5 Not Available [facility] Department [address] [place] [address], [address], 12/25/2022 03:08:09 12/25/19 23 12/24/2022 COMP. METAB OLIC PANEL (14) albumin 4.6 g/dL 4.0-5. 0 Not Available [facility] Department [address] [place], [address], 12/25/2022 03:08:09 12/25/19 23 12/24/2022 COMP. METAB OLIC PANEL (14) globulin, total 2.7 g/dL 1.5-4. 5 Not Available [facility] Department [address] [place] [address], [address], 12/25/2022 03:08:09 12/25/19 23 12/24/2022 COMP. METAB OLIC PANEL (14) A/G ratio 2.0 1.2-2. 2 Not Available [facility] Department [address] [place] [address], [address], 12/25/2022 03:08:09 12/25/19 23 12/24/2022 COMP. METAB OLIC PANEL (14) bilirubin, total 0.4 mg/dL 0.0-1. 2 Not Available [facility] Department [address] [place] [address], [address], 12/25/2022 03:08:09 12/25/19 23 12/24/2022 COMP. METAB OLIC PANEL (14) alkaline phosphatase 61 IU/L 42-106 Not Available [facility] Department [address] [place], [address], 12/25/2022 03:08:09 12/25/19 23 12/24/2022 COMP. METAB OLIC PANEL (14) AST (SGOT) 17 IU/L 0-40 Not Available [facility] Department [address] [place], [address], 12/25/2022 03:08:09 12/25/19 23 12/24/2022 COMP. METAB OLIC PANEL (14) ALT (SGPT) 19 IU/L 0-32 Not Available [facility] Department [address] [place], [address], 12/25/2022 03:08:09 12/25/1912/24/2022 CBC WITH DIFFE RENTI AL/PL ATELE T WBC 4.1 x10e3 /uL 3.4-10 .8 Not Available [facility] Department [address] [place], [address], 12/25/2022 03:08:10 12/25/1912/24/2022 CBC WITH DIFFE RENTI AL/PL ATELE T RBC 3.74 x10e6 /uL 3.77-5 .28 below low normal Not Available [facility] Department [address] [facility], [place], [address], 12/25/2022 03:08:10 12/25/1912/24/2022 CBC WITH DIFFE RENTI AL/PL ATELE T hemoglobin 12.2 g/dL 11.1-1 5.9 Not Available [facility] Department [address] [place], [address], 12/25/2022 03:08:10 12/25/19 23 12/24/2022 CBC WITH DIFFE RENTI AL/PL ATELE T hematocrit 36.4 % 34.0-4 6.6 Not Available [facility] Department [address] [place], [address], 12/25/2022 03:08:10 12/25/1912/24/2022 CBC WITH DIFFE RENTI AL/PL ATELE T MCV 97 fL 79-97 Not Available [facility] Department [address] [place], [address], 12/25/2022 03:08:10 12/25/1912/24/2022 CBC WITH DIFFE RENTI AL/PL ATELE T MCH 32.6 pg 26.6-3 3.0 Not Available [facility] Department [address] [place], [address], 12/25/2022 03:08:10 12/25/19 23 12/24/2022 CBC WITH DIFFE RENTI AL/PL ATELE T MCHC 33.5 g/dL 31.5-3 5.7 Not Available [facility] Department [address] [place], [address], 12/25/2022 03:08:10 12/25/19 23 12/24/2022 CBC WITH DIFFE RENTI AL/PL ATELE T RDW 12.6 % 11.5-1 4.5 Not Available [facility] Department [address] [place], [address], 12/25/2022 03:08:10 12/25/1912/24/2022 CBC WITH DIFFE RENTI AL/PL ATELE T platelets 374 x10e3 /uL 150-45 0 Not Available [facility] Department [address] [place], [address], 12/25/2022 03:08:10 12/25/19 23 12/24/2022 CBC WITH DIFFE RENTI AL/PL ATELE T neutrophils 38 % notest b. Not Available [facility] Department [address] [place], [address], 12/25/2022 03:08:10 12/25/19 23 12/24/2022 CBC WITH DIFFE RENTI AL/PL ATELE T lymphs 49 % notest b. Not Available [facility] Department [address] [place], [address], 12/25/2022 03:08:10 12/25/19 23 12/24/2022 CBC WITH DIFFE RENTI AL/PL ATELE T monocytes 9 % notest b. Not Available [facility] Department [address] [place], [address], 12/25/2022 03:08:10 12/25/19 23 12/24/2022 CBC WITH DIFFE RENTI AL/PL ATELE T eos 4 % notest b. Not Available [facility] Department [address] [place], [address], 12/25/2022 03:08:10 12/25/19 23 12/24/2022 CBC WITH DIFFE RENTI AL/PL ATELE T basos 1 % notest b. Not Available [facility] Department [address] [place], [address], 12/25/2022 03:08:10 12/25/19 23 12/24/2022 CBC WITH DIFFE RENTI AL/PL ATELE T neutrophils (absolute) 1.5 x10e3 /uL 1.4-7. 0 Not Available [facility] Department [address] [place], [address], 12/25/2022 03:08:10 12/25/19 23 12/24/2022 CBC WITH DIFFE RENTI AL/PL ATELE T lymphs (absolute) 2.0 x10e3 /uL 0.7-3. 1 Not Available [facility] Department [address] [place], [address], 12/25/2022 03:08:10 12/25/19 23 12/24/2022 CBC WITH DIFFE RENTI AL/PL ATELE T monocytes(ab solute) 0.4 x10e3 /uL 0.1-0. 9 Not Available [facility] Department [address] [place], [address], 12/25/2022 03:08:10 12/25/19 23 12/24/2022 CBC WITH DIFFE RENTI AL/PL ATELE T eos (absolute) 0.2 x10e3 /uL 0.0-0. 4 Not Available [facility] Department [address] [place], [address], 12/25/2022 03:08:10 12/25/19 23 12/24/2022 CBC WITH DIFFE RENTI AL/PL ATELE T baso (absolute) 0.0 x10e3 /uL 0.0-0. 2 Not Available [facility] Department [address] [place], [address], 12/25/2022 03:08:10 12/25/19 23 12/24/2022 CBC WITH DIFFE RENTI AL/PL ATELE T immature granulocytes 0 % notest b. Not Available [facility] Department [address] [place], [address], 12/25/2022 03:08:10 12/25/19 23 12/24/2022 CBC WITH DIFFE RENTI AL/PL ATELE T immature grans (abs) 0.0 x10e3 /uL 0.0-0. 1 Not Available [facility] Department [address] [place], [address], 12/25/2022 03:08:10 12/25/19 23 12/24/2022 CBC WITH DIFFE RENTI AL/PL ATELE T NRBC 0 % 0-0 Not Available [facility] Department [address] [place], [address], 12/25/2022 03:08:10 12/25/19 23 12/27/2022 CT, NG, TRICH VAG BY JUAN chlamydia by JUAN Negati ve negati ve Not Available [facility] ([facility]) [facility] [place], [address], 12/28/2022 04:09:30 12/25/1912/27/2022 CT, NG, TRICH VAG BY JUAN gonococcus by JUAN Negati ve negati ve Not Available [facility] ([facility]) [address] [place], [address], 12/28/2022 04:09:30 12/25/1912/27/2022 CT, NG, TRICH VAG BY JUAN trich vag by JUAN Positi ve negati ve abnormal Not Available [facility] ([facility]) [address] [place], [address], 12/28/2022 04:09:30 12/25/19 23 12/25/2022 TSH RFX ON ABNOR MAL TO FREE T4 TSH 1.170 uIU/m L 0.450- 4.500 Not Available [facility] ([facility]) [address] [place], [address], 12/28/2022 04:09:31 12/25/19 23 12/25/2022 PROGE STERO NE progesterone 0.4 NG/mL Folli cular phase 0.1 - 0.9 Lutea l phase 1.8 - 23.9 Ovula tion phase 0.1 - 12.0 Pregn ant First trime ster 11.0 - 44.3 Secon d trime ster 25.4 - 83.3 Third trime ster 58.7 - 214.0 Postm enopa usal 0.0 - 0.1 Not Available [facility] ([facility]) [address] [place], [address], 12/28/2022 04:09:32 12/25/19 23 12/25/2022 PROLA CTIN prolactin 11.5 NG/mL 4.8-23 .3 Not Available [facility] ([facility]) [address] [place], [address], 12/28/2022 04:09:32 12/25/19 23 12/25/2022 FSH AND LH LH 7.1 mIU/m L Adult Femal e Range Folli cular phase 2.4 - 12.6 Ovula tion phase 14.0 - 95.6 Lutea l phase 1.0 - 11.4 Postm enopa usal 7.7 - 58.5 Not Available [facility] ([facility]) [address] [place], [address], 12/28/2022 04:09:33 12/25/19 23 12/25/2022 FSH AND LH FSH 6.9 mIU/m L Adult Femal e Range Folli cular phase 3.5 - 12.5 Ovula tion phase 4.7 - 21.5 Lutea l phase 1.7 - 7.7 Postm enopa usal 25.8 - 134.8 Not Available [facility] ([facility]) [address] [place], [address], 12/28/2022 04:09:33 10/10/19 24 10/11/2023 NUSWA B VG+, YUE DA 6SP atopobium vaginae HIGH - 2 score abnormal Not Available [facility] ([facility]) [address] [place], [address], 10/12/2023 06:17:21 10/10/1910/11/2023 NUSWA B VG+, YUE DA 6SP bvab 2 HIGH - 2 score abnormal Not Available [facility] ([facility]) [address] [facility], [place], [address], 10/12/2023 06:17:21 10/10/19 24 10/11/2023 NUSWA B VG+, YUE DA 6SP megasphaera 1 HIGH - 2 score abnormal Calcu late total score by justin g the 3 indiv idual bacte rial vagin osis (BV) marke r score s toget her. Total score is inter prete d as follo ws: Total score 0-1: Indic ates the absen ce of BV. Total score 2: Indet ermin ate for BV. Addit ional clini behzad data shoul d be evalu ated to estab hayden a diagn osis. Total score 3-6: Indic ates the prese nce of BV. Not Available [facility] ([facility]) [address] [facility], [place], [address], 10/12/2023 06:17:21 10/10/1910/11/2023 NUSWA B VG+, YUE DA 6SP veronica albicans, JUAN NEGATI VE negati ve Not Available [facility] ([facility]) [address] [place], [address], 10/12/2023 06:17:21 10/10/19 24 10/11/2023 NUSWA B VG+, YUE DA 6SP veronica glabrata, JUAN NEGATI VE negati ve Not Available [facility] ([facility]) [address] [place], [address], 10/12/2023 06:17:21 10/10/1910/12/2023 NUA B VG+, YUE DA 6SP C parapsilosis /tropicalis N negati ve This assay does not diffe renti ate C. tropi calis and C. parap riaz is. Not Available [facility] ([facility]) [address] [place], [address], 10/12/2023 06:17:21 10/10/19 24 10/12/2023 NUA B VG+, YUE DA 6SP veronica lusitaniae, JUAN N Not Available [facility] ([facility]) [address] [place], [address], 10/12/2023 06:17:21 10/10/1910/12/2023 NUA B VG+, YUE DA 6SP veronica krusei, JUAN N Not Available [facility] ([facility]) [address] [place], [address], 10/12/2023 06:17:21 10/10/19 24 10/12/2023 NUA B VG+, YUE DA 6SP trich vag by JUAN NEGATI VE negati ve Not Available [facility] ([facility]) [address] [place], [address], 10/12/2023 06:17:21 10/10/19 24 10/12/2023 NUA B VG+, YUE DA 6SP chlamydia trachomatis, JUAN NEGATI VE negati ve Not Available [facility] ([facility]) [address] [place], [address], 10/12/2023 06:17:21 10/10/19 24 10/12/2023 NUSWA B VG+, YUE DA 6SP neisseria gonorrhoeae, JUAN NEGATI VE negati ve Not Available [facility] ([facility]) [address] [facility], [place], [address], 10/12/2023 06:17:21 10/10/19 24 10/11/2023 INTER PRETA TION: interpretati on: Commen t Not infec ashley with HCV unles s early or acute infec tion is suspe cted (whic h may be delay ed in an immun ocomp romis ed indiv idual ), or other evide nce exist s to indic ate HCV infec tion. Not Available [facility] ([facility]) [address] [facility], [place], [address], 10/17/2023 09:07:52 10/10/19 24 10/11/2023 PREGN ADRIANA, INITI AL SCREE N HBsAg screen NEGATI VE negati ve Not Available [facility] ([facility]) [address] [place], [address], 10/17/2023 09:07:52 10/10/19 24 10/11/2023 PREGN ADRIANA, INITI AL SCREE N HCV Ab NON REACTI VE nonrea ctive Not Available [facility] ([facility]) [address] [place], [address], 10/17/2023 09:07:52 10/10/19 24 10/11/2023 PREGN ADRIANA, INITI AL SCREE N RPR NON REACTI VE nonrea ctive Not Available [facility] ([facility]) [address] [place], [address], 10/17/2023 09:07:52 10/10/19 24 10/11/2023 PREGN ADRIANA, INITI AL SCREE N rubella antibodies, IgG 11.20 index immune >0.99 Non-i mmune <0.90 Equiv ocal 0.90 - 0.99 Immun e >0.99 Not Available [facility] ([facility]) [address] [facility] [address], [place], [address], 10/17/2023 09:07:52 10/10/19 24 10/11/2023 PREGN ADRIANA, INITI AL SCREE N ABO grouping B Not Available [facility] ([facility]) [address] [facility] [address], [place], [address], 10/17/2023 09:07:52 10/10/19 24 10/11/2023 PREGN ADRIANA, INITI AL SCREE N Rh factor POSITI VE Pleas e note: Prior recor ds for this patie nt's ABO / Rh type are not avail able for addit ional verif icati on. Not Available [facility] ([facility]) [address] [facility] [address], [place], [address], 10/17/2023 09:07:52 10/10/19 24 10/11/2023 PREGN ADRIANA, INITI AL SCREE N antibody screen NEGATI VE negati ve Not Available [facility] ([facility]) [address] [facility] [address], [place], [address], 10/17/2023 09:07:52 10/10/19 24 10/11/2023 PREGN ADRIANA, INITI AL SCREE N HIV Ab/P24 Ag screen NON REACTI VE nonrea ctive HIV-1 /HIV- 2 antib odies and HIV-1 p24 antig en were NOT detec ashley. There is no labor atory evide nce of HIV infec tion. HIV Negat mounika Not Available [facility] ([facility]) [address] [facility] [address], [place], [address], 10/17/2023 09:07:52 10/10/19 24 10/11/2023 PREGN ADRIANA, INITI AL SCREE N WBC 4.6 x10e3 /uL 3.4-10 .8 Not Available [facility] ([facility]) [address] [place], [address], 10/17/2023 09:07:52 10/10/19 24 10/11/2023 PREGN ADRIANA, INITI AL SCREE N RBC 3.82 x10e6 /uL 3.77-5 .28 Not Available [facility] ([facility]) [address] [facility] [address], [place], [address], 10/17/2023 09:07:52 10/10/19 24 10/11/2023 PREGN ADRIANA, INITI AL SCREE N hemoglobin 12.5 g/dL 11.1-1 5.9 Not Available [facility] ([facility]) [address] [place], [address], 10/17/2023 09:07:52 10/10/19 24 10/11/2023 PREGN ADRIANA, INITI AL SCREE N hematocrit 38.5 % 34.0-4 6.6 Not Available [facility] ([facility]) [address] [place], [address], 10/17/2023 09:07:52 10/10/1910/11/2023 PREGN ADRIANA, INITI AL SCREE N MCV 101 fL 79-97 above high normal Not Available [facility] ([facility]) [address] [place], [address], 10/17/2023 09:07:52 10/10/19 24 10/11/2023 PREGN ADRIANA, INITI AL SCREE N MCH 32.7 pg 26.6-3 3.0 Not Available [facility] ([facility]) [address] [place], [address], 10/17/2023 09:07:52 10/10/19 24 10/11/2023 PREGN ADRIANA, INITI AL SCREE N MCHC 32.5 g/dL 31.5-3 5.7 Not Available [facility] ([facility]) [address] [place], [address], 10/17/2023 09:07:52 10/10/19 24 10/11/2023 PREGN ADRIANA, INITI AL SCREE N RDW 12.6 % 11.7-1 5.4 Not Available [facility] ([facility]) [address] [facility] [address], [place], [address], 10/17/2023 09:07:52 10/10/19 24 10/11/2023 PREGN ADRIANA, INITI AL SCREE N platelets 337 x10e3 /uL 150-45 0 Not Available [facility] ([facility]) [address] [facility] [address], [place], [address], 10/17/2023 09:07:52 10/10/19 24 10/11/2023 PREGN ADRIANA, INITI AL SCREE N neutrophils 42 % notest ab. Not Available [facility] ([facility]) [address] [facility] [address], [place], [address], 10/17/2023 09:07:52 10/10/19 24 10/11/2023 PREGN ADRIANA, INITI AL SCREE N lymphs 47 % notest ab. Not Available [facility] ([facility]) [address] [facility] [address], [place], [address], 10/17/2023 09:07:52 10/10/19 24 10/11/2023 PREGN ADRIANA, INITI AL SCREE N monocytes 9 % notest ab. Not Available [facility] ([facility]) [address] [facility] [address], [place], [address], 10/17/2023 09:07:52 10/10/19 24 10/11/2023 PREGN ADRIANA, INITI AL SCREE N eos 1 % notest ab. Not Available [facility] ([facility]) [address] [facility] [address], [place], [address], 10/17/2023 09:07:52 10/10/19 24 10/11/2023 PREGN ADRIANA, INITI AL SCREE N basos 1 % notest ab. Not Available [facility] ([facility]) [address] [facility] [address], [place], [address], 10/17/2023 09:07:52 10/10/19 24 10/11/2023 PREGN ADRIANA, INITI AL SCREE N neutrophils (absolute) 1.9 x10e3 /uL 1.4-7. 0 Not Available [facility] ([facility]) [address] [facility] [address], [place], [address], 10/17/2023 09:07:52 10/10/19 24 10/11/2023 PREGN ADRIANA, INITI AL SCREE N lymphs (absolute) 2.1 x10e3 /uL 0.7-3. 1 Not Available [facility] ([facility]) [address] [facility] [address], [place], [address], 10/17/2023 09:07:52 10/10/19 24 10/11/2023 PREGN ADRIANA, INITI AL SCREE N monocytes(ab solute) 0.4 x10e3 /uL 0.1-0. 9 Not Available [facility] ([facility]) [address] [place], [address], 10/17/2023 09:07:52 10/10/19 24 10/11/2023 PREGN ADRIANA, INITI AL SCREE N eos (absolute) 0.1 x10e3 /uL 0.0-0. 4 Not Available [facility] ([facility]) [address] [place], [address], 10/17/2023 09:07:52 10/10/19 24 10/11/2023 PREGN ADRIANA, INITI AL SCREE N baso (absolute) 0.0 x10e3 /uL 0.0-0. 2 Not Available [facility] ([facility]) [address] [place], [address], 10/17/2023 09:07:52 10/10/19 24 10/11/2023 PREGN ADRIANA, INITI AL SCREE N immature granulocytes 0 % notest ab. Not Available [facility] ([facility]) [address] [facility] [address], [place], [address], 10/17/2023 09:07:52 10/10/19 24 10/11/2023 PREGN ADRIANA, INITI AL SCREE N immature grans (abs) 0.0 x10e3 /uL 0.0-0. 1 Not Available [facility] ([facility]) [address] [facility] [address], [place], [address], 10/17/2023 09:07:52 10/10/19 24 10/11/2023 PREGN ADRIANA, INITI AL SCREE N specific gravity 1.025 1.005- 1.030 Not Available [facility] ([facility]) [address] [facility] [address], [place], [address], 10/17/2023 09:07:52 10/10/19 24 10/11/2023 PREGN ADRIANA, INITI AL SCREE N pH 6.5 5.0-7. 5 Not Available [facility] ([facility]) [address] [facility] [address], [place], [address], 10/17/2023 09:07:52 10/10/19 24 10/11/2023 PREGN ADRIANA, INITI AL SCREE N urine-color YELLOW yellow Not Available [facility] ([facility]) [address] [place], [address], 10/17/2023 09:07:52 10/10/19 24 10/11/2023 PREGN ADRIANA, INITI AL SCREE N appearance CLOUDY clear abnormal Not Available [facility] ([facility]) [address] [facility] [address], [place], [address], 10/17/2023 09:07:52 10/10/1910/11/2023 PREGN ADRIANA, INITI AL SCREE N WBC esterase NEGATI VE negati ve Not Available [facility] ([facility]) [address] [place], [address], 10/17/2023 09:07:52 10/10/19 24 10/11/2023 PREGN ADRIANA, INITI AL SCREE N protein TRACE negati ve/tra ce Not Available [facility] ([facility]) [address] [place], [address], 10/17/2023 09:07:52 10/10/19 24 10/11/2023 PREGN ADRIANA, INITI AL SCREE N glucose NEGATI VE negati ve Not Available [facility] ([facility]) [address] [place], [address], 10/17/2023 09:07:52 10/10/19 24 10/11/2023 PREGN ADRIANA, INITI AL SCREE N ketones TRACE negati ve abnormal Not Available [facility] ([facility]) [address] [place], [address], 10/17/2023 09:07:52 10/10/19 24 10/11/2023 PREGN ADRIANA, INITI AL SCREE N occult blood NEGATI VE negati ve Not Available [facility] ([facility]) [address] [place], [address], 10/17/2023 09:07:52 10/10/19 24 10/11/2023 PREGN ADRIANA, INITI AL SCREE N bilirubin NEGATI VE negati ve Not Available [facility] ([facility]) [address] [place], [address], 10/17/2023 09:07:52 10/10/19 24 10/11/2023 PREGN ADRIANA, INITI AL SCREE N urobilinogen ,semi-qn 0.2 mg/dL 0.2-1. 0 Not Available [facility] ([facility]) [address] [place], [address], 10/17/2023 09:07:52 10/10/19 24 10/11/2023 PREGN ADRIANA, INITI AL SCREE N nitrite, urine NEGATI VE negati ve Not Available [facility] ([facility]) [address] [facility] [address], [place], [address], 10/17/2023 09:07:52 10/10/19 24 10/11/2023 PREGN ADRIANA, INITI AL SCREE N microscopic examination COMMEN T Micro scopi c follo ws if indic ated. Not Available [facility] ([facility]) [address] [facility] [address], [place], [address], 10/17/2023 09:07:52 10/10/19 24 10/11/2023 PREGN ADRIANA, INITI AL SCREE N microscopic examination SEE BELOW: Micro scopi c was indic ated and was perfo rmed. Not Available [facility] ([facility]) [address] [facility] [address], [place], [address], 10/17/2023 09:07:52 10/10/19 24 10/12/2023 PREGN ADRIANA, INITI AL SCREE N chlamydia trachomatis, JUAN NEGATI VE negati ve Not Available [facility] ([facility]) [address] [facility] [address], [place], [address], 10/17/2023 09:07:52 10/10/19 24 10/12/2023 PREGN ADRIANA, INITI AL SCREE N neisseria gonorrhoeae, JUAN NEGATI VE negati ve Not Available [facility] ([facility]) [address] [facility] [address], [place], [address], 10/17/2023 09:07:52 10/10/19 24 10/12/2023 PREGN ADRIANA, INITI AL SCREE N urine culture,pren atal, w/gbs FINAL REPORT Not Available [facility] ([facility]) [address] [place], [address], 10/17/2023 09:07:52 10/10/19 24 10/11/2023 MICRO SCOPI C EXAMI NATIO N WBC 0-5 /hpf 0-5 Not Available [facility] ([facility]) [address] [facility] [address], [place], [address], 10/17/2023 09:07:53 10/10/19 24 10/11/2023 MICRO SCOPI C EXAMI NATIO N RBC 0-2 /hpf 0-2 Not Available [facility] ([facility]) [address] [facility] [address], [place], [address], 10/17/2023 09:07:53 10/10/19 24 10/11/2023 MICRO SCOPI C EXAMI NATIO N epithelial cells (non renal) >10 /hpf 0-10 abnormal Not Available [facility] ([facility]) [address] [facility] [address], [place], [address], 10/17/2023 09:07:53 10/10/19 24 10/11/2023 MICRO SCOPI C EXAMI NATIO N casts None seen /lpf nonese en Not Available [facility] ([facility]) [address] [facility] [address], [place], [address], 10/17/2023 09:07:53 10/10/19 24 10/11/2023 MICRO SCOPI C EXAMI NATIO N mucus threads Presen t notest ab. Not Available [facility] ([facility]) [address] [facility] [address], [place], [address], 10/17/2023 09:07:53 10/10/19 24 10/11/2023 MICRO SCOPI C EXAMI NATIO N bacteria Modera te nonese en/few abnormal Not Available [facility] ([facility]) [address] [facility] [address], [place], [address], 10/17/2023 09:07:53 10/10/1910/17/2023 COTIN INE CONF, MS, UR cotinine Positi ve cutoff =500 abnormal Cotin ine level equal to or great er than 500 ng/mL is consi stent with the use of tobac co or tobac co cessa tion produ ct. Not Available [facility] ([facility]) [address] [place], [address], 10/17/2023 09:07:54 10/10/19 24 10/17/2023 COTIN INE CONF, MS, UR cotinine conf, MS, ur 2296 NG/mL cutoff =500 Not Available [facility] ([facility]) [address] [place], [address], 10/17/2023 09:07:54 10/10/19 24 10/11/2023 PREGN ADRIANA DRUG PROFI LE, UR, 16 amphetamines screen, urine NEGATI VE NG/mL cutoff =500 Amphe tamin e test inclu elmo Amphe tamin e and Metha mphet amine . Not Available [facility] ([facility]) [address] [place], [address], 10/17/2023 09:07:54 10/10/19 24 10/11/2023 PREGN ADRIANA DRUG PROFI LE, UR, 16 barbiturates NEGATI VE NG/mL cutoff =200 Not Available [facility] ([facility]) [address] [place], [address], 10/17/2023 09:07:54 10/10/19 24 10/11/2023 PREGN ADRIANA DRUG PROFI LE, UR, 16 benzodiazepi isai NEGATI VE NG/mL cutoff =200 Not Available [facility] ([facility]) [address] [place], [address], 10/17/2023 09:07:54 10/10/19 24 10/11/2023 PREGN ADRIANA DRUG PROFI LE, UR, 16 cannabinoid SEE FINAL RESULT S Not Available [facility] ([facility]) [address] [place], [address], 10/17/2023 09:07:54 10/10/19 24 10/11/2023 PREGN ADRIANA DRUG PROFI LE, UR, 16 cocaine (metab.), urine NEGATI VE NG/mL cutoff =150 Not Available [facility] ([facility]) [address] [place], [address], 10/17/2023 09:07:54 10/10/19 24 10/11/2023 PREGN ADRIANA DRUG PROFI LE, UR, 16 opiates NEGATI VE NG/mL cutoff =300 Opiat e test inclu elmo Codei ne, Morph ine, Pearce morph one, Pearce codon e. Not Available [facility] ([facility]) [address] [place], [address], 10/17/2023 09:07:54 10/10/19 24 10/11/2023 PREGN ADRIANA DRUG PROFI LE, UR, 16 oxycodone/ox ymorphone, urine NEGATI VE NG/mL cutoff =300 Test inclu elmo Oxyco done and Oxymo rphon e Not Available [facility] ([facility]) [address] [place], [address], 10/17/2023 09:07:54 10/10/19 24 10/11/2023 PREGN ADIRANA DRUG PROFI LE, UR, 16 pcp, urine NEGATI VE NG/mL cutoff =25 Not Available [facility] ([facility]) [address] [place], [address], 10/17/2023 09:07:54 10/10/19 24 10/11/2023 PREGN ADRIANA DRUG PROFI LE, UR, 16 methadone screen, urine NEGATI VE NG/mL cutoff =300 Not Available [facility] ([facility]) [address] [place], [address], 10/17/2023 09:07:54 10/10/19 24 10/11/2023 PREGN ADRIANA DRUG PROFI LE, UR, 16 propoxyphene , urine NEGATI VE NG/mL cutoff =300 Not Available [facility] ([facility]) [address] [place], [address], 10/17/2023 09:07:54 10/10/19 24 10/11/2023 PREGN ADRIANA DRUG PROFI LE, UR, 16 fentanyl, urine NEGATI VE pg/mL cutoff =2000 Test inclu elmo Fenta nyl and Norfe ntany l This test was devel oped and its perfo rmanc e tre cteri stics deter mined by [facility]. It has not been clear ed or appro amira by the Food and Drug Admin istra tion. Not Available [facility] ([facility]) [address] [place], [address], 10/17/2023 09:07:54 10/10/19 24 10/11/2023 PREGN ADRIANA DRUG PROFI LE, UR, 16 tapentadol, urine NEGATI VE NG/mL cutoff =200 This test was devel oped and its perfo rmanc e tre cteri stics deter mined by [facility]. It has not been clear ed or appro amira by the Food and Drug Admin istra tion. Not Available [facility] ([facility]) [address] [place], [address], 10/17/2023 09:07:54 10/10/19 24 10/11/2023 PREGN ADRIANA DRUG PROFI LE, UR, 16 tramadol NEGATI VE NG/mL cutoff =200 Not Available [facility] ([facility]) [address] [place], [address], 10/17/2023 09:07:54 10/10/19 24 10/11/2023 PREGN ADRIANA DRUG PROFI LE, UR, 16 ethyl glucuronide screen, ur NEGATI VE NG/mL cutoff =500 This test was devel oped and its perfo rmanc e tre cteri stics deter mined by [facility]. It has not been clear ed or appro amira by the Food and Drug Admin istra tion. Not Available [facility] ([facility]) [address] [place], [address], 10/17/2023 09:07:54 10/10/19 24 10/11/2023 PREGN ADRIANA DRUG PROFI LE, UR, 16 buprenorphin e, urine NEGATI VE NG/mL cutoff =10 Not Available [facility] ([facility]) [address] [place], [address], 10/17/2023 09:07:54 10/10/19 24 10/11/2023 PREGN ADRIANA DRUG PROFI LE, UR, 16 cotinine SEE FINAL RESULT S Not Available [facility] ([facility]) [address] [place], [address], 10/17/2023 09:07:54 10/10/19 24 10/11/2023 PREGN ADRIANA DRUG PROFI LE, UR, 16 creatinine, urine 305.3 mg/dL 20.0-3 00.0 above high normal Not Available [facility] ([facility]) [address] [place], [address], 10/17/2023 09:07:54 10/10/19 24 10/11/2023 PREGN ADRIANA DRUG PROFI LE, UR, 16 pH, urine 6.1 4.5-8. 9 Not Available [facility] ([facility]) [address] [place], [address], 10/17/2023 09:07:54 10/10/19 24 10/17/2023 PREGN ADRIANA DRUG PROFI LE, UR, 16 cannabinoid POSITI VE cutoff =50 abnormal Not Available [facility] ([facility]) [address] [place], [address], 10/17/2023 09:07:54 10/10/19 24 10/17/2023 PREGN ADRIANA DRUG PROFI LE, UR, 16 carboxy THC conf, MS, ur 3100 NG/mL cutoff =15 Not Available [facility] ([facility]) [address] [place], [address], 10/17/2023 09:07:54 10/10/19 24 10/11/2023 HB SOLU + RFLX FRAC hemoglobin (HGB) solubility NEGATI VE negati ve Not Available [facility] ([facility]) [address] [facility], [place], [address], 10/17/2023 09:07:55 10/10/19 24 10/12/2023 RESUL T result 1 Commen t Mixed uroge nital amira 25,00 0-50, 000 colon y formi ng units per mL Not Available [facility] ([facility]) [address] [facility] [address], [place], [address], 10/17/2023 09:07:55 10/10/19 24 10/11/2023 VARIC YANCI- ZOSTE R V AB, IGG varicella zoster IgG <135 index immune >165 below low normal Negat mounika <135 Equiv ocal 135 - 165 Posit mounika >165 A posit muonika resul t gener ally indic ates expos ure to the patho gen or admin istra tion of speci fic immun oglob ulins , but it is not indic ation of activ e infec tion or stage of disea se. Not Available [facility] ([facility]) [address] [facility] [address], [place], [address], 10/17/2023 09:07:56 07/20/19 23 07/19/2022 XR, shoul tevin, 2 or more view No observ ation record ed. [email or web address] [facility], [place], [address], 07/23/2022 16:30:20 06/21/19 24 06/21/2023 XR, knee No observ ation record ed. [facility] [address] [facility] [address], [place], [address], 06/21/2023 11:50:33 11/21/19 24 11/21/2023 US, obste tric, 1st trime ster No observ ation record ed. SKYLA Carreno [facility] [address], [place], [address], 11/23/2023 12:25:34 Result Notes None recorded. 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 Jazzy Cummings MD Attn: Jesus bergeron,[address], [place], [address], [place] [facility] 4 09:03:47 Gonorrhe a 15892608 Completed 202010/12/2023 Jazzy Cummings MD Attn: Jesus bergeron,[address] [facility], [place], [address] [facility] 4 09:03:35 Bacteria l vaginosi s 250406973 Completed 202010/12/2023 Jazzy Cummings MD Attn: Jesus bergeron,[address] [facility], [place], [address] [facility] 4 09:03:31 Pregnanc y 21990493 Active 2023 Jazzy Cummings MD Attn: Jesus bergeron,[address] [facility], [place], [address], [place] [facility] 4 09:45:05 Bacteria l vaginosi s in pregnanc y 98003402134 9109 Active 2023 Initial labs, treated with lin Cummings MD Attn: Jesus bergeron,[address] [facility], [place], [address], [place] [facility] 4 00:12:51 Bacteria l vaginosi s in pregnanc y 32194845199 9109 Active 2023 Initial labs, treated with flagyl Jazzy Cummings MD Attn: Jesus bergeron,[address] [place] [address], [place], [address], [place] [facility] 4 00:12:51 Elevated blood-pr essure reading without diagnosi s of hyperten rita 766187970 Active 2023 Baseline preeclam psia labs Jazzy Cummings MD Attn: Jesus bergeron,[address] [place] [address], [place], [address], [place] [facility] 4 16:52:39 Elevated blood-pr essure reading without diagnosi s of hyperten rita 051626573 Active 2023 Baseline preeclam psia labs Jazzy Cummings MD Attn: Jesus g,[address], [place], [address], [place] [facility] 4 16:52:39 Nausea and vomiting in pregnanc y Active 2023 Refracto ry to unisom and B6, trial benadryl Jazzy Cummings MD Attn: Kaylain g,[address] [facility], [place], [address], [place] [facility] 4 16:52:09 Nausea and vomiting in pregnanc y Active 2023 Refracto ry to unisom and B6, trial benadryl Jazzy Cummings MD Attn: Jesus bergeron,[address] [facility], [place], [address], [place] [facility] 4 16:52:09 Marijuan a user 287332130 Active 2023 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 Patient had been self-med icating for nausea. Jazzy Cummings MD Attn: Jesus bergeron,[address] [facility], [place], [address], [place] [facility] 4 00:13:29 Marijuan a user 985016432 Active 2023 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 Patient had been self-med icating for nausea. Jazzy Cummings MD Attn: Jesus bergeron,[address] [facility], [place], [address], [place] [facility] 4 00:13:29 Insomnia 422212137 Active 2023 Refracto ry to unisom, trial benadryl Jazzy Cummings MD Attn: Jesus bergeron,[address] [facility], [place], [address], [place] [facility] 4 16:51:49 Insomnia 371477762 Active 2023 Refracto ry to unisom, trial benadryl Jazzy Cummings MD Attn: Jesus elyssa,[address] [facility], [place], [address], [place] [facility] 4 16:51:49 Maternal obesity complica ting pregnanc y, childbir th and the puerperi , antepart 81184723241 7 Active 2023 BMI 33.1, consider ASA for preeclam psia prophyla xis Jazzy Cummings MD Attn: Jesus elyssa,[address] [facility], [place], [address], [place] [facility] 4 00:12:39 Urine pregnanc y test positive 992705809 Active 2023 Jazzy Cummings MD Attn: Jesus elyssa,[address] [facility], [place], [address], [place] [facility] 4 00:10:59 Urine pregnanc y test positive 415897314 Active 2023 Jazzy Cummings MD Attn: Jesus elyssa,[address] [facility], [place], [address], [place] [facility] 4 00:10:59 Maternal obesity complica ting pregnanc y, childbir th and the puerperi , [facility] 38217625728 7 Active 2023 BMI 33.1, consider ASA for preeclam psia prophyla xis Jazzy Cummings MD Attn: Jesus bergeron,[address] [facility], [place], [address], [place] [facility] 4 00:12:39 Routine antenata l care Active 2023 Jazzy Cummings MD Attn: Jesus g,[address] [facility], [place], [address], [place] [facility] 4 16:41:56 Routine antenata l care Active 2023 Jazzy Cummings MD Attn: Jesus bergeron,[address] [facility], [place], [address], [place] [facility] 4 16:41:56 Mild persiste nt asthma 171524885 Completed 06/09/2017 Wilver Eli MD Attn: Accountmichael bergeron,[address] [facility], [place], [address], [place] [facility] 8 08:58:27 Allergic rhinitis [id number] Active Jazzy Cummings MD Attn: Accountmichael g,[address] [facility], [place], [address], [place] [facility] 4 09:03:43 Obesity [id number] Active 2016 Jazzy Cummings MD Attn: Jesus g,[address] [facility], [place], [address], [place] [facility] 4 09:03:39 Problem Notes None recorded. Procedures Surgical History Date Name Laterality Status Provider Name and Address Organization Details Recorded Time 11/29/19 20 Control Implant Removal completed RAFFY LESTER Attn: Accounting,[address] [place], [address], [place] [facility] 11/29/2019 15:48:31 07/07/19 19 Control Implant Insertion completed Carlos Canales [place] - [facility] 07/06/2018 10:51:56 02/14/19 15 Tonsillectomy completed Felipa Starks [place] - [facility] 11/29/2019 15:55:01 Imaging Results Imaging Date Name Status LastModified by Organiz ation Details LastModified Time 07/19/2022 XR, shoulder, 2 or more view completed [address], [address], 07/23/2022 16:30:20 06/21/2023 XR, knee completed [address], [address], 06/21/2023 11:50:33 11/21/2023 US, obstetric, 1st trimester completed SKYLA Carreno [facility] [address], [place], [address], 11/23/2023 12:25:34 Procedure Notes None recorded. Medical Equipment None Reported. Allergies No known drug allergies Medications Name Sig Start Date Stop Date Status Note LastModified by Organization Details LastModified Time multivitami n tablet Take 1 tablet every day by oral route. 11/28 completed Not Available Not Available Not Available cyclobenzap rine 10 mg tablet TAKE 1 TABLET BY MOUTH EVERY 8 HOURS 03/24 completed Not Available Not Available Not Available amoxicillin 500 mg capsule TAKE 1 CAPSULE BY MOUTH EVERY 8 HOURS 12/24 completed Not Available Not Available Not Available montelukast 5 mg chewable tablet 10/08 completed Not Available Not Available Not Available Qvar 80 mcg/actuati on Metered Aerosol oral inhaler 10/08 completed Not Available Not Available Not Available Vitamin B-6 25 mg tablet TAKE 1 TABLET BY MOUTH THREE TIMES A DAY FOR 30 DAYS active Not Available Not Available No t Available Claritin 10 mg tablet Take 1 tablet every day by oral route. 11/28 completed Not Available Not Available Not Available prednisone 20 mg tablet TAKE 2 TABLETS BY MOUTH DAILY 12/24 completed Not Available Not Available Not Available ceftriaxone 250 mg solution for injection Take 250 mg as needed by injection route as directed for 1 day. 07/16 completed Not Available Not Available Not Available metronidazo le 500 mg tablet Take 1 tablet twice a day by oral route for 7 days. 10/09 completed Not Available Not Available Not Available doxycycline monohydrate 100 mg capsule TAKE ONE CAPSULE BY MOUTH TWICE DAILY WITH MEALS FOR 7 DAYS 12/24 completed Not Available Not Available Not Available cephalexin 500 mg capsule TAKE 1 CAPSULE BY MOUTH EVERY 12 HOURS 12/24 completed Not Available Not Available Not Available polymyxin B sulfate 10,000 unit-trimet hoprim 1 mg/mL eye drops Instill 1 drop 6 times a day by ophthalmi c route for 7 days. 12/28 completed Not Available Not Available Not Available misoprostol 100 mcg tablet INSERT 1 TABLET VAGINALLY AT BEDTIME THE NIGHT BEFORE IUD INSERTION . 03/24 completed Not Available Not Available Not Available diclofenac potassium 50 mg tablet TAKE 1 TABLET BY MOUTH THREE TIMES A DAY NEEDED FOR PAIN 11/06 completed Not Available Not Available Not Available Banophen 25 mg capsule TAKE 1 CAPSULE BY MOUTH EVERY 8 HOURS NEEDED FOR NAUSEA/IN SOMNIA FOR 30 DAYS active Not Available Not Available No t Available ibuprofen 600 mg tablet TAKE 1 TABLET BY MOUTH EVERY 8 HOURS WITH FOOD NEEDED 10/09 completed Not Available Not Available Not Available methylpredn isolone 4 mg tablets in a dose pack 11/28 completed Not Available Not Available Not Available ondansetron 4 mg disintegrat ing tablet DISSOLVE 1 TABLET BY MOUTH EVERY 6 HOURS NEEDED FOR NAUSEA AND VOMITING 12/24 completed Not Available Not Available Not Available fluticasone propionate 50 mcg/actuati on nasal spray,suspe nsion [place] 2 sprays every day by intranasa l route as needed. 11/28 completed Not Available Not Available Not Available medroxyprog esterone 150 mg/mL intramuscul ar suspension Inject 1 ml (150 mg) intramusc ularly every 3 months 12/24 completed Not Available Not Available Not Available naproxen 500 mg tablet TAKE 1 TABLET BY MOUTH TWICE DAILY NEEDED FOR PAIN 12/24 completed Not Available Not Available Not Available Ventolin HFA 90 mcg/actuati on aerosol inhaler Inhale 2 puffs every 4 hours by inhalatio n route as needed. 11/28 completed Not Available Not Available Not Available azithromyci n 500 mg tablet TAKE 2 TABLETS BY MOUTH AT ONE TIME 11/06 completed Not Available Not Available Not Available Sleep Aid (doxylamine ) 25 mg tablet TAKE 1 TABLET BY MOUTH EVERY DAY AT BEDTIME FOR 30 DAYS active Not Available Not Available No t Available Gummies Girls' Multivitami ns chewable tablet Take 1 tablet every day by oral route. 03/24 completed Not Available Not Available Not Available Nexplanon 68 mg subdermal implant Inject 1 implant by subcutane ous route. 07/16 completed Not Available Not Available Not Available calcium 600 mg (as carbonate)- vitamin D3 20 mcg (800 unit) tablet Take 1 tablet twice a day by oral route. 11/28 completed Not Available Not Available Not Available Xulane 150 mcg-35 mcg/24 hr transdermal patch Apply 1 patch every week by transderm al Route 10/09 completed Not Available Not Available Not Available Citracal-D3 Gummies 250 mg-12.5 mcg (500 unit) chewable tablet Take 1 tablet every day by oral route. 03/24 completed Not Available Not Available Not Available M- Plus 27 mg iron-1 mg tablet TAKE 1 TABLET BY MOUTH EVERY DAY active Not Available Not Available No t Available Aurovela 24 Fe 1 mg-20 mcg (24)/75 mg (4) tablet TAKE 1 TABLET BY MOUTH EVERY DAY 03/24 completed Not Available Not Available Not Available Vitals Date Recorded Body height Body mass index (BMI) Body mass index (BMI) Percentile per age and sex Body weight Systolic blood pressure Diastolic blood pressure Provider Name and Address Organization Details Last Updated DateTime 3 167.64 cm 31.3 kg/m2 95 % 56765.9 2 g 110 mm[Hg] 64 mm[Hg] Kathleen Anthony MA [place] - [facility] 3 09:12:30 Date Recorded Body height Body mass index (BMI) Body mass index (BMI) Percentile per age and sex Body weight Systolic blood pressure Diastolic blood pressure Provider Name and Address Organization Details Last Updated DateTime 3 167.64 cm 31.5 kg/m2 95 % 20857.5 1 g 104 mm[Hg] 62 mm[Hg] Felipa Starks MA [place] - [facility] 3 10:51:19 Date Recorded Body height Body mass index (BMI) Percentile per age and sex Body mass index (BMI) Body weight Systolic blood pressure Diastolic blood pressure Provider Name and Address Organization Details Last Updated DateTime 3 167.64 cm 95.36 % 32.1 kg/m2 93128.8 8 g 124 mm[Hg] 62 mm[Hg] Felipa Starks [place] - [facility] 3 12:05:02 Date Recorded Body height Body mass index (BMI) Percentile per age and sex Body mass index (BMI) Body weight Heart rate Oxygen saturation Oxygen saturation in Arterial blood by Pulse oximetry Systolic blood pressure Diastolic blood pressure Provider Name and Address Organization Details Last Updated DateTime 4 167.64 cm 96 % 33.1 kg/m2 91254.4 4 g 102 /min 99 % 99 % 124 mm[Hg] 58 mm[Hg] Jolie Ye MA [facility] 4 10:08:54 Date Recorded Heart rate Systolic blood pressure Diastolic blood pressure Provider Name and Address Organization Details Last Updated DateTime 10/10/2023 88 /min 118 mm[Hg] 72 mm[Hg] Tip Dave MA [facility] 10/10/2023 11:39:49 Date Recorded Body height Body mass index (BMI) Percentile per age and sex Body mass index (BMI) Body weight Systolic blood pressure Diastolic blood pressure Provider Name and Address Organization Details Last Updated DateTime 4 167.64 cm 96 % 33.2 kg/m2 86323.0 3 g 132 mm[Hg] 74 mm[Hg] Felipa Starks MA [facility] 4 12:18:24 Social History Question Answer Notes LastModified by Organizat ion Details LastModified Time Tobacco Smoking Status Never Smoker Not Available [facility] 12/18/2019 03:43:25 Do You Have An Advance Directive? No [id number] Information not available 12/18/2019 What Is Your Level Of Alcohol Consumption? None [id number] Information not available 12/18/2019 Animal Exposure? No Informat ion not available 11/04/2014 Is Blood Transfusion Acceptable In An Emergency? Yes [id number] Information not available 12/18/2019 What Is Your Level Of Caffeine Consumption? Moderate [id number] Information not available 12/18/2019 How Much Tobacco Do You Chew? None [id number] Information not available 12/18/2019 In The 14 Days Before Symptom Onset, Have You Had Close Contact With A Laboratory-confir med COVID-19 While That Case Was Ill? No Information not available 10/10/2023 In The 14 Days Before Symptom Onset, Have You Had Close Contact With A Person Who Is Under Investigation For COVID-19 While That Person Was Ill? No Information not available 10/10/2023 Have You Been To An Area Known To Be High Risk For COVID-19? No Information not available 10/10/2023 Are You Currently Employed? No Information not available 07/16/2020 What Type Of Diet Are You Following? REGULAR [id number] Information not available 12/18/2019 Which Illicit Or Recreational Drugs Have You Used? Marijuana [id number] Information not available 12/18/2019 Do You Or Have You Ever Used E-cigarettes Or Vape? Former User Of Electronic Cigarettes Information not available 10/10/2023 Education 11 Information n ot available 11/29/2019 What Is The Highest Grade Or Level Of School You Have Completed Or The Highest Degree You Have Received? [id number] Information not available 07/16/2020 What Is Your Home Situation? Both Parents [id number] Information not available 12/18/2019 What Was The Date Of Your Most Recent Tobacco Screening? 10/10/2023 Information not available 10/10/2023 How Many Children Do You Have? 0 [id number] Information not available 12/18/2019 What Is Your Parents' Marital Status? Unmarried [id number] Information not available 12/18/2019 Performs Monthly Self-breast Exam? No Information no t available 11/29/2019 Do You Use Protection During Sex? Always [id number] Information not available 12/18/2019 What Is Your Relationship Status? Single [id number] Information not available 12/18/2019 What Is The Name Of Your School? [employer] [id number] Information not available 12/18/2019 Do You Use Your Seat Belt Or Car Seat Routinely? Yes Information not available 07/16/2020 Seat Belts Used Routinely Yes Information not available 11/29/2019 Are You Sexually Active? Yes [id number] Information not available 12/18/2019 Do You Have Any Siblings? 3 [id number] Information not available 12/18/2019 Do You Have Smoke And Carbon Monoxide Detectors In Your Home? Yes [id number] Information not available 12/18/2019 Are You Passively Exposed To Smoke? Yes Information no t available 11/04/2014 Do You Or Have You Ever Used Smokeless Tobacco? Never Used Smokeless Tobacco [id number] Information not available 12/18/2019 How Much Tobacco Do You Smoke? No [id number] Information not available 12/18/2019 What Types Of Sporting Activities Do You Participate In? Volleyball, Basketball, Tennis [id number] Information not available 12/18/2019 Do You Use Any Illicit Or Recreational Drugs? Yes Marijuana Information not available 06/18/2022 Do You Use Sunscreen Routinely? No [id number] Information not available 12/18/2019 Has Tobacco Cessation Counseling Been Provided? Yes Information not available 06/18/2022 On What Date Was Tobacco Cessation Counseling Provided? 10/10/2023 Information not available 10/10/2023 Have You Used IV Drugs? No Information not available 07/16/2020 Year In School 10 [email or web address] Informatio n not available 08/29/2018 Do You Or Have You Ever Used Any Other Forms Of Tobacco Or Nicotine? No [email or web address] Information not available 03/24/2022 Sex: Female Functional Status Question Answer Note LastModified by Organizat ion Details LastModified Time What is your exercise level? Occasional [id number] Information not available 12/18/2019 Mental Status None recorded. Family History Relationship Description Onset Age of this Age Resolved Age Notes LastModified by Organization Details LastModified Time Father Attention deficit hyperactivit y disorder [email or web address] Not available 10/20 20:31:45 Brother Attention deficit hyperactivit y disorder [email or web address] Not available 06/08 15:37:13 Maternal Grandmother Asthma [email or web address] Not available 2017 12:06:50 Maternal Grandmother Malignant tumor of breast stage 4 [email or web address] Not available 12/28/2017 12:08:24 Maternal Grandmother Hypertensive disorder [email or web address] Not available 2017 12:09:26 Maternal Aunt Diabetes mellitus [email or web address] Not available 2017 12:09:39 Medical History Condition Response Other N Breast Cancer N Thyroid Problems N Kidney or Bladder Problems N Lung Disease N GI Problems N Depression N Acne Y Breast Problem N Eating Disorder N Anemia N Anesthesia Complications N Diabetes N Ovarian Cancer N Anxiety Disorder N Blood Transfusions N Seizures/Epilepsy N Polyps N Acid Reflux (GERD) N Cancer N Abuse/Domestic Violence N Asthma Y Allergies Y Endometriosis N Liver Disease N Pre-Eclampsia N Osteoporosis N Gynecological History Statement/Question Response Date of LMP 08/28/2023 On BCP's at Conception? N STIs/STDs Y HPV Vaccine Y Age [age] Menarche [age] Current Control Method Sexually Active? Y Menses Monthly N Sexual Problems? N LMP Approximate Desired Control Method Hormonal In jection Obstetrics History GPAL:G 1 P 0 0 0 0 Type Value Multiple Births 0 Full Term 0 Induced 0 Spontaneous 0 Premature 0 Living 0 Ectopics 0 Total 1 Immunizations Vaccine Type Date Status Note Provider Nam e and Address Organization Details Recorded Time HPV9 7 completed Not Available [facility] 03/03/2019 02:33:57 HPV9 8 completed Not Available [facility] 03/03/2019 02:35:21 Influenza, split virus, quadrivalent, PF 8 completed Not Available [facility] 03/03/2019 02:47:53 Influenza, split virus, quadrivalent, preservative 0 completed LISA [place] [facility] 11/29/2019 16:34:18 Tdap 5 completed Not Available [facility] 03/03/2019 02:44:16 meningococcal MCV4P 5 completed Not Available [facility] 03/03/2019 02:30:16 Influenza, split virus, quadrivalent, PF 5 completed Not Available [facility] 03/03/2019 02:34:21 DTP 4 [place] [facility] 06/14/2016 16:07:38 DTP 4 [place] [facility] 06/14/2016 16:07:43 DTP 4 [place] [facility] 06/14/2016 16:07:47 DTP 5 completed Katherine Warford, [place] [facility] 06/14/2016 16:07:53 DTP 8 completed Katherine Warford, [place] [facility] 06/14/2016 16:07:58 Hib, unspecified formulation 4 completed Katherine [place], [place] [facility] 06/14/2016 16:08:10 Hib, unspecified formulation 4 completed Katherine [place], [place] [facility] 06/14/2016 16:08:14 Hib, unspecified formulation 4 completed Katherine [place], [place] [facility] 06/14/2016 16:08:19 Hib, unspecified formulation 5 completed Katherine Warford, [place] [facility] 06/14/2016 16:08:24 Hep A, ped/adol, 2 dose 6 completed Katherine Warford, [place] [facility] 06/14/2016 16:08:36 Hep A, ped/adol, 2 dose 6 completed Katherine Warford, [place] [facility] 06/14/2016 16:08:40 Hep B, unspecified formulation 4 completed Katherine Warford, [place] [facility] 06/14/2016 16:08:50 Hep B, unspecified formulation 4 completed Katherine Warford, [place] [facility] 06/14/2016 16:08:55 Hep B, unspecified formulation 4 completed Katherine War[place], [place] [facility] 06/14/2016 16:08:59 Hep B, unspecified formulation 4 completed Katherine [place], [place] [facility] 06/14/2016 16:09:04 MMR 5 completed Katherine [place], [place] [facility] 06/14/2016 16:09:14 MMR 8 completed Katherine Warford, [place] [facility] 06/14/2016 16:09:19 meningococcal ACWY, unspecified formulation 6 completed Katherine L[place] [facility] 06/14/2016 16:09:30 Pneumococcal conjugate PCV 13 4 completed Katherine [place] [facility] 06/14/2016 16:09:42 Pneumococcal conjugate PCV 13 4 completed Katherine [place] [facility] 06/14/2016 16:09:46 Pneumococcal conjugate PCV 13 4 completed Katherine [place] [facility] 06/14/2016 16:09:50 Pneumococcal conjugate PCV 13 5 completed Katherine [place] [facility] 06/14/2016 16:09:54 polio, unspecified formulation 4 completed Katherine [place] [facility] 06/14/2016 16:10:07 polio, unspecified formulation 4 completed Katherine [place] [facility] 06/14/2016 16:10:12 polio, unspecified formulation 4 completed Katherine WarfLISA [place] [facility] 06/14/2016 16:10:16 polio, unspecified formulation 5 completed Katherine [place] [facility] 06/14/2016 16:10:20 polio, unspecified formulation 8 completed [place] [facility] 06/14/2016 16:10:24 varicella 5 completed Katherine [place] [facility] 06/14/2016 16:10:34 varicella 8 completed Katherine [place] [facility] 06/14/2016 16:10:39 Past Encounters Encounter ID Performer Location Encounter Start Date Encounter Closed Date Diagnosis/Indication Diagnosis SNOMED-CT Code Diagnosis ICD10 Code Diagnosis Note [id number] LISA Guo (Peds) [address] [place] [address] 11/04/2014 15:16:16 11/04/2014 17:44:50 Well child [id number] Anticipato ry guidance discussed as listed in well visit document, which was provided to the parent. Vaccinatio ns given as ordered. Parental questions were solicited and answered. 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 Parent verbalized understand ing. Mild persi stent asthma [id number] Child managed at [facility] - refilled Qvar and singulair in September 2014 - stressed compliance with therapy. Patient needs to follow up with pulmonolog y every 3-6 months - inlfuenza vaccine given today. [id number] MD Nida Vargas (Peds) [address] [place] [phone] 10/08/2016 10:09:26 10/08/2016 11:16:19 Well child 366599133 Z00.129 11yo F with good growth and normal developmen t. IUTD except HPV - given #1 today, needs 2nd one after 6 months. Return yearly for well check.. Mild persi stent asthma 095207070 J45.30 Well-contr olled despite not using daily controller for many months . Reminded mom to f/u with pulmonolog y as recommende d. Obesity 702473133 E66.9 wt and BMI > 99%ile since 2014, with accelerate d wt gain, most likely d/t unhealthy eating habits (sweets) and lack of physical activity. Extensive discussion on health risks and need for early interventi on. Pt agrees to try dietary modificati on and f/u in 3 months for weight check.Will get obesity screening labs today. Pain in left knee 958615 2932 12117 M25.562 given focal tenderness and pain with certain ROM, > 6 wks post-injur y, will check XR and refer for PT if negative for fx. Allergic rhinitis 840079 04 J30.9 [id number] MD Nida V[facility]as [facility] (Peds) [address] [place] [phone] 01/11/2017 09:48:52 01/12/2017 14:04:25 Obesity 905657879 E66.9 10lb wt gain in 3 months, which is even more accelerate d than the previous gain. Reviewed charts (and given hard copy) with pt/mom, again stressed the importance of diet change and exercise.P t to get labs done today.Like ly f/u in 3 months for wt check. Mild persi stent asthma 866953759 J45.30 Pain in left knee 930003 6923 25735 M25.562 Pain seemingly resolved, whether with PT or natural course. Advised regular activity with stretching and wt loss. [id number] MD Nida Vargas (Peds) [address] [place] [phone] 06/08/2017 14:53:51 06/14/2017 13:09:55 Well child 349581104 Z00.129 Pleasant 12yo AAF, with no acute issues.HPV #2 today - IUTD.RTC yearly for WCC. Obesity 811333916 E66.9 Again with excessive wt gain, +20lb in 5 months, heading further away from normal growth chart.Revi ewed charts (and given hard copy) with pt/mom.Pt is shocked by her wt trend and seems regretful. Again discussed health risks of continued obesity, and need for diet change and exercise.T hicker and larger acanthosis .Repeat labs today. Intermittent asthma 4276 88254 J45.20 No exacerbati on or alb use/need in at least past 1 year. [id number] MD Nida Vargas (Peds) [address] [place] [phone] 12/28/2017 11:14:15 12/30/2017 14:52:22 History and physical examination, school 80143025 Z02.0 School physical form completed and given to pt (1 for home, 1 for school). Well child 378267812 Z00 .129 Pleasant 12.5yo AAF, with no acute issues.IUT D.RTC yearly for WCC. Needs infl uenza immunization 428586771 Z23 Obesity 604402571 E66.9 No wt change since May, which is good, though wt and BMI still > 99%ile and much room for improvemen t.Complime nted pt on good work, at least on initiating it after last visit, and encouraged to resume dance (which [facility] likes to, and can be a time of bonding for pt), and choose healthier options, if pt chooses to eat at fast food chains. Intermittent asthma 4276 62266 J45.20 No exacerbati on or alb use/need in at least > 1 year.Asthm a action plan given for school. Allergic rhinitis 453954 04 J30.9 Contracept ion education 192775746 Z30.09 Discussed different options of ' control' available. MGM does not think pt can do daily pills. Pt okay with doing shots - but also interested in implants.G ave handout and encouraged pt to review with mom, before OB appt. Positive s creening for depression on PHQ-9 (Patient Health Questionnaire 9) 5297252193 22566 Z13.89 Pt became sad when discussing grandma (present today), as she was just diagnosed with stage 4 breast cancer.Enc ouraged pt to enjoy her time with grandma and not be discourage d by her health.Inf ormed of counseling service available here. [id number] Carlos [facility] ([facility]) [address] [place] [address] [phone] 07/06/2018 09:47:26 07/06/2018 11:48:00 Family planning surveillance 871938004 Z30.09 At [facility] risk of sexually transmitted infection 230021694 Z20.2 Insertion of subcutaneous contraceptive 663168979 Z30.866 [id number] MD Nida Decker rai [facility] (Peds) [address] [place] [address] [phone] 08/29/2018 09:27:59 08/30/2018 10:58:25 History and physical examination, sports participation 770798893 Z02.5 No red flags on history & PE with regards to sports participat ion Has poor visual acuity.adv ised protective eyewear during sports. Wants to play basketball Cleared for sports with no restrictio ns Obesity 334410992 E66.9 Obesity+ No other clinical comorbidit ies of obesity Has upward trend in BMI ,but noted to have 5 lb weight loss since last visit Healthy eating & life style measures advised. Reduce screen time to less than 1 hrs,No sugary drinks,juan pablo nted material provided. Obesity specific labs ordered. [id number] [facility]Y [facility] ([facility]) [address] [place] [address] [phone] 11/29/2019 15:32:17 12/03/2019 15:06:38 Removal of subcutaneous contraceptive done 1997291104 32798 Z98.890 Nexplanon removed without issue, pt tolerated well. Advised return to fertility in 1-2 weeks. Pt voiced understand ing. Family ej nning surveillance 936688830 Z30.09 Discussed different control options with patient such as OCPs, patch, ring, Depo Provera shot, and IUDs. Pt may be interested in starting Annovera, but does not want control at this time. She wants to think about it and talk to her mom. Informatio nal handout and condoms provided. RTC when decision made. Venereal d isease screening 173291388 Z11.3 Safe sex practices discussed. Unilateral mastalgia 315 821058 N64.4 R breast pain x 7 days. No L breast pain. PE with abnormal tenderness with palpation. F/u US. Advised supportive bra without underwire, low fat diet, limited caffeine, and warm compresses and OTC analgesics for pain. Administra tion of influenza vaccine 73349279 Z23 [id number] LISA Da [facility] ([facility]) [address] [place] [address] [phone] 12/07/2019 10:05:19 12/10/2019 08:25:34 Exposure to sexually transmissible disorder 477455917 Z20.2 [id number] Carlos Parkerdustin [facility] ([facility]) [address] [place] [address] [phone] 07/16/2020 15:46:16 07/22/2020 08:11:01 Family planning surveillance 402973361 Z30.09 Obesity 833077347 E66.9 Exposure t o sexually transmissible disorder 264779304 Z20.2 Gonorrhea 74261100 A54.9 Resulted as positive on 11/29/19 Venereal d isease screening 981709610 Z11.3 [id number] LISA Robison [facility] ([facility]) [address] [place] [address] [phone] 0 10/10/2020 11:53:30 10/14/2020 09:01:52 Depot contraceptive-no problem 743801180 Z30.42 [id number] [facility] [address] [place] [address] [phone] 0 12/26/2020 10:59:47 12/29/2020 10:34:24 Family planning surveillance 869270116 Z30.09 [id number] [facility] ([facility] [address] [place] [address] [phone] 03/24/2022 10:42:48 03/25/2022 14:41:17 Contraception care management 675100606 Z30.9 Other options of contracept juan a discussed, pt happy with Depo and not interested in switching. Advised Depo contracept ion can increase risk of osteoporos is thus take Ca w/ Vit D supplement ation and consider alternativ e contracept mounika after 2 years use. RTC every 3 months for injection. Advised does not protect from STD & to use condoms. Venereal d isease screening 560936067 Z11.3 Routine screening, safe sex practices discussed. [id number] [facility] [address] [place] [address] [phone] 05/12/2022 09:00:59 05/17/2022 10:12:02 Acute vaginitis 69366375 N76.0 Pt has a concern for vaginal discharge. She reports it started 2 weeks ago, has light brown color with fishy odor. H/o trich, treated Mar 2022. PE concerning for BV vs trich, will treat empiricall y with PO Flagyl. Follow up cultures. Safe sex practices discussed. RTC if symptoms persist. [id number] RAFF[facility] ([facility] [address] [place] [address] [phone] 06/18/2022 10:39:14 07/08/2022 14:22:29 Surveillance of depot contraception done 2398749979 9104 Z30.42 Other options of contracept juan a discussed, pt happy with Depo and not interested in switching, despite weight and appetite fluctuatio ns. Advised Depo contracept ion can increase risk of osteoporos is thus take Ca w/ Vit D supplement ation and consider alternativ e contracept mounika after 2 years use. RTC every 3 months for injection. Advised does not protect from STDs & to use condoms. Obesity 209983119 E66.9 Per BMI 31.5 History of sexually transmitted disease [id number] Z86.19 H/o trich s/p treatment. Experienci ng discharge and irritation again, will retest. Safe sex practices discussed. [id number] RAFFY LESTER ([employer]) [address] [place] [phone] 12/24/2022 11:20:56 12/30/2022 09:12:10 Abnormal uterine bleeding [id number] 9100 N93.9 Pt with 2 weeks of bleeding. Discontinu ed Depo Provera a few months ago (last injection June 2022). Advised irregular periods likely due to hormone imbalance from Depo and the resumption of normal cycle can take up to a year. Will check labs and start temporary course of patches to stop bleeding. Pt is not interested in staying on longterm contracept ion. RTC if bleeding persists. History of sexually transmitted disease [id number] Z86.19 Positive for chlamydia at last visit June 2022, s/p treatment. Routine screening, safe sex practices discussed. [id number] MD Nida Newton ([employer]) [address] [place] [phone] 10/10/2023 09:33:35 10/20/2023 11:35:35 Insomnia [id number] G47.00 Sleep onset and maintenanc e. Poor sleep hygeine. Counselled on lifestyle modificati ons. Doxylamine mainly prescribed for nausea but would have added benefit to help with sleep. Urine preg dhara test positive [id number] Z32.01 Rosalia is a 18 y/o presenting at 6.1 days dated by LMP; here for initial OB exam. Initial US performed first trimester. Preg complicate d by: marijuana use, hx chlamydia, hx trichomona s, hx asthma. She reports her LMP was 08/28/23, and had been regular. She was previously on depo until last year, then stopped. The was unplanned but is a welcome surprise. She reports living with her mom, step dad, and younger siblings. Her partner and FOB, Yoel, is involved and present at the appointmen t. She feels [facility] home [facility] She does wish to speak to a case maker about transporta tion difficulti es and establishi ng care with a dentist. She also reports nausea and vomiting, smoking marijuana, mild intermitte nt headaches improved with water, lower stomach cramping, and insomnia since becoming . 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 She denies dizziness, changes in vision, numbness, tingling, chest pain, shortness of breath, and dysuria. Ultrasound performed at visit showing intrauteri ne gestationa l sac, no FHT or CRL measured due to early gestation. Plan to repeat in 4 week. Plan to also perform initial labs, continue PNV, and initiate pyridoxine and doxylamine for nausea and vomiting. Discussed lifestyle modificati ons to manage nausea and insomnia. Counselled patient on marijuana cessation; advised there is no safe amount during . Can consider ASA initiation at later appointmen t for preeclamps ia prevention due to obesity and black race. Will also connect patient with resources for transporta tion and dentist. Initial blood pressure elevated to 124/58, improved to 118/72 on recheck, which is reassuring . Plan to follow-up in 4 weeks for further management . Marijuana user [id number] F12.90 Counselled patient on marijuana cessation; advised there is no safe amount during . Patient had been self-medic ating for nausea, appropriat e regimen started as below. Nausea and vomiting in [id number] O21.9 Counselled on lifestyle modificati ons including trigger avoidance, small frequent meals, taking PNV at night. Will also start pyridoxine and doxylamine . Elevated blood-pressure reading without diagnosis of hypertension 288096185 R03.0 Initial blood pressure elevated to 124/58, improved to 118/72 on recheck, which is reassuring . No red flag symptoms. Maternal o besity complicating , childbirth and the puerperium, antepartum [id number] 07 O99.210 BMI 33.1, consider ASA for preeclamps ia prophylaxi s [id number] MD Nida MARTELL ([employer]) [address] [place] [phone] 11/07/2023 11:33:06 11/17/2023 10:43:26 Routine care [id number] Z34.90 Rosalia is a 18 y/o presenting at 9.6 days dated by LMP; here for routine OB exam. Initial US performed first trimester. Preg complicate d by: nausea and vomiting, insomnia, marijuana use, tobacco use, varicella non-immune , hx chlamydia, hx trichomona s, hx asthma. Still with nausea and vomiting and insomnia refractory to B6 and unisom. Smoking marijuana to improve appetite. Has quit tobacco. She is planning on [facility] to [facility] because it is closer to home. No red flag symptoms. Exam reassuring . Plan on inheritest and [id number] , repeat dating ultrasound . Insomnia [id number] G47.0 0 Sleep onset and maintenanc e. Poor sleep hygeine. Counselled on lifestyle modificati ons. Doxylamine previously prescribed for nausea but would have added benefit to help with sleep.Nadine ent reports continued symptoms despite doxylamine use. Will switch to diphenhydr amine. Marijuana user [id number] F12.90 Counselled patient on marijuana cessation; advised there is no safe amount during . Patient had been self-medic ating for nausea, appropriat e regimen started as below. Nausea and vomiting in [id number] O21.9 Counselled on lifestyle modificati ons including trigger avoidance, small frequent meals, taking PNV at night. Trial of pyridoxine and doxylamine , patient reports refractory symptoms. Will switch to diphenhydr amine for effect on nausea and insomnia. Elevated blood-pressure reading without diagnosis of hypertension 305991689 R03.0 Elevated to 132/74. Too early in to be attributed to preeclamps ia. Cannot rule out underlying hypertensi on. No red flag symptoms. Exam reassuring . Will obtain baseline preeclamps ia labs. Maternal o besity complicating , childbirth and the puerperium, antepartum [id number] 07 O99.210 BMI 33.1, plan on ASA for preeclamps ia prophylaxi s Health Concerns Section Related Observation LastModified by Organization Detai ls LastModified Time None Recorded Concern Status LastModified by Organization Details LastModified Time None Recorded Advance Directives Directive N: Payers Encounter Date Sequence Insurance Name Policy Number Policy Hicks Covered Member ID Hicks Member ID Guarantor Name 05/12/2022 1 [facility] (MEDICAID HMO) [id number] Rosalia Ortiz [id number] Janene Damon 06/18/2022 1 [facility] (MEDICAID HMO) [id number] Rosalia Ortiz [id number] Janene Damon 12/24/2022 1 *SELF PAY* Deanna Damon 10/10/2023 1 MEDICAID - MOVED-MGRHOLD - PENDING [id number] Janene Damon 11/07/2023 1 MEDICAID - MOVED-MGRHOLD - PENDING [id number] Janene Damon Notes Date Note Type Note Provider Name and Address Organization Details Recorded Time 05/12/2022 text/html Pt is an 16y/o G 0P0 F with history of BV and trich, coming here today for STD screening and concern of vaginal discharge. She reports it started 2 weeks ago, has light brown color with fishy odor. She is worried she may have trich again. Pt admits urinary frequency but denies urinary burning, flank pain. LMP 04/08/22, on Depo.Pt denies fever, chills, vomiting, nausea, diarrhea, constipation, weight change or abdominal pain. RAFFY LESTER Attn: [address] [place], [address], [facility] 05/26/2022 14:21:42 06/18/2022 text/html Rosalia is a 17 year old female who presents for depo injection. She is doing well today. She is concerned with weight and appetite fluctuations she is experiencing on depo, but wishes to continue at this time. She had 2 menstrual cycles after her first depo injection in March, but has not had a cycle since.She has also been experiencing brown vaginal discharge and irritation. She was recently treated for Trich (03/2022) and BV (04/2022) and reports taking the full antibiotic course. She denies pelvic pain, dysuria, or dyspareunia. RAFFY LESTER Attn: [address], [place], [address], [facility] 07/07/2022 16:53:43 12/24/2022 text/html 17yo G0 F with h /o STIs presenting for period lasting for ~2 weeks. Pt states LMP started 12/12 and she is still bleeding. She discontinued Depo Provera a few months ago (last injection June 2022) and reports regular period in Sep and Oct. Was amenorrheic prior to that. She denies any associated symptoms, denies discharge, pelvic pain, urinary symptoms, fevers, n/v, CP, SOB. RAFFY LESTER Attn: [address] [facility], [place], [address], [facility] 12/24/2022 15:18:12 10/10/2023 text/html Rosalia is a 18 y/o presenting at 6.1 days dated by LMP; here for initial OB exam. Initial US performed first trimester. Preg complicated by: marijuana use, hx chlamydia, hx trichomonas, hx asthma. She reports her LMP was 08/28/23, and had been regular. She was previously on depo until last year, then stopped. The was unplanned but is a welcome surprise. She reports living with her mom, step dad, and younger siblings. Her partner and FOB, Yoel, is involved and present at the appointment. She feels safe at home and in her relationship. She does wish to speak to a case maker about transportation difficulties and establishing care with a dentist. She also reports nausea and vomiting, smoking marijuana, mild intermittent headaches improved with water, lower stomach cramping, and insomnia since becoming . 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 She denies dizziness, changes in vision, numbness, tingling, chest pain, shortness of breath, and dysuria. OB plan: 18 y/o ; RITCHIE 06/04/23 based on LMP with ultrasound pendingPre- Weight: 205 lbs, BMI: elevated Pre-Eclampsia Risk: medium (obesity, black race, first ) Risk Level: low Continuity Resident: TBD Problem List:- marijuana use- nausea and vomiting- BV in Anticipate [facility] Delivery INITIAL LABS Date: TBDBlood Type: {{A B AB O}} Rh Type: {{positive neg}} Antibody Screen: {{pos neg}}CBC: Hgb {{}} Hct {{}} WBC {{}} Plts {{}}VDRL/RPR: {{non-reactive reacti ve}} Hep B: {{negative positive}} HepC: {{reactive non-reacti ve}} HIV: {{reactive Non-reacti ve}}Vaginal Cultures: GC:{{pos neg*}}; Chlamydia:{{pos neg*} };Trich: {{pos neg*}}Pap: {{UTD Due, recommend PP pending}}Rubella: {{immune non-Immune}} Varicella: {{immune non-Immune}} CF:{{pos neg}} SS: consistent with {{normal variant sickle cell trait sickle cell anemia other hemoglobinapathy}}Uri ne Dip {{}} Culture: {{normal abnormal}} UDS:{{not indicated pos neg}}Se quential/QUAD/Materni T21:{{pos neg}}; consistent with {{male female unknown }} Dating US: LMP: {{}} GA {{}} RITCHIE: {{}} Patient is {{sure unsure}} of dating.DUS: Date {{}} AUA: {{}} RITCHIE: {{}} Discrepancy {{<5 days <7 days >7days >10days > 14days >21days}}RITCHIE: {{}}Based on {{LMP supported by US US}} Anatomy Scan: {{concordant with dates; unremarkable discorda nt with dates}} 26 weeks: Date {{}}GTT: {{Pass Fail}}; 3HR GTT {{not warranted pass fail}} CBC: Hgb {{}} Hct {{}} WBC {{}} Plts {{}}HIV:{{reactive no n-reactive}} RPR {{reactive non-reacti ve}}Tdap:{{given decl ined}} COVID: {{given declined UTD} } Flu {{given declined not indicated}} RSV {{given declined}}Rho shad: {{unwarranted given}} Date: 36 weeks:Date: {{}}Vaginal Cultures: GC:{{pos neg}}; Chlamydia:{{pos neg}} ;Trich: {{pos neg}}GBS {{postive negative}}L imited US:{{cephalic breech transverse}} Situational Awareness:Support Person/Partner/Other Parent(s): Yoel Siblings: NonePossible Baby Name(s): Willing to participate in group visits: {{yes* no}}Home visits ok: {{yes* no}}Aline mitchell Dentist: {{yes no*}} Dental Visit in the last year: {{yes no*}}Regular Exercise Routine: {{yes* no}}Taking vitamin prior to : {{yes no*}}Open to vaccination: Tdap: {{yes* no}} COVID: {{yes* no}} Flu: {{yes* no not indicated}} RSV: {{yes* no}}Consent for urine drug screen: {{yes* no}}[place]: {{postive negative*}} PHQ9: {{postive negative*}} GAD7: {{positive negative*} }ACES: {{1 2 3 4 5+ 0#}}Resi lience: {{high* low}}Trauma/P TSD screen: neg (11); SDOH: trouble with transportation, in need of dentistPlanning to breastfeed: {{yes* no}} Circumcision {{yes* no undecided}} Epidural {{yes* no undecided}} Post- contraception {{OCP Depo* IUD Nexpl anon tubal none}} Jenifer Richter MD Attn: [address] [place], [address], [place] [facility] 10/18/2023 08:59:19 11/07/2023 text/html Rosalia is a 18 y/o presenting at 9.6 days dated by LMP; here for routine OB exam. Initial US performed first trimester. Preg complicated by: nausea and vomiting, insomnia, marijuana use, tobacco use, varicella non-immune, hx chlamydia, hx trichomonas, hx asthma. She reports that she feels overall well today and has no major concerns. She endorses quitting cigarettes, but continues to smoke marijuana to improve her appetite. She endorses doing this before as well. She has tried unisom and B6 with little success. She is planning on transferring care entirely to [facility] because it is closer to home. She denies headache, dizziness, changes in vision, chest pain, shortness of breath, abdominal pain, nausea, vomiting, constipation, diarrhea, dysuria, and abnormal vaginal discharge or bleeding. OB plan: 18 y/o ; RITCHIE 06/04/23 based on LMP with ultrasound pendingPre- Weight: 205 lbs, BMI: elevated Pre-Eclampsia Risk: positive (obesity, black race, first ), plan on ASA after 12 weeksPregnancy Risk Level: medium Continuity Resident: JORGE LUIS Problem List:- marijuana use- tobacco use (has quit)- nausea and vomiting- insomnia- BV in , treated with flagyl- varicella non-immune Anticipate complete transfer to [facility] due to patient preference INITIAL LABS Date: 10/10/23Blood Type: B; Rh Type: pos; Antibody Screen: negCBC: Hgb 12.5; Hct 38.5; WBC 4.6; Plts 337VDRL/RPR: neg; Hep B: neg; HepC: neg; HIV: negVaginal Cultures: GC: neg; Chlamydia: neg; Trich: negPap: not indicated, patient under 21Rubella: immune; Varicella: nonimmuneCF:{{pos neg }} SS: consistent with normal variantUrine Dip: {{}} Culture: normal; UDS: cannabinoids and cotinine Sequential/QUAD/Mater niT21:{{pos neg}}; consistent with {{male female unknown }} Dating US: LMP: {{}} GA {{}} RITCHIE: {{}} Patient is {{sure unsure}} of dating.DUS: Date {{}} AUA: {{}} RITCHIE: {{}} Discrepancy {{<5 days <7 days >7days >10days > 14days >21days}}RITCHIE: {{}}Based on {{LMP supported by US US}} Anatomy Scan: {{concordant with dates; unremarkable discorda nt with dates}} 26 weeks: Date {{}}GTT: {{Pass Fail}}; 3HR GTT {{not warranted pass fail}} CBC: Hgb {{}} Hct {{}} WBC {{}} Plts {{}}HIV:{{reactive no n-reactive}} RPR {{reactive non-reacti ve}}Tdap:{{given decl ined}} COVID: {{given declined UTD} } Flu {{given declined not indicated}} RSV {{given declined}}Rho shad: {{unwarranted given}} Date: 36 weeks:Date: {{}}Vaginal Cultures: GC:{{pos neg}}; Chlamydia:{{pos neg}} ;Trich: {{pos neg}}GBS {{postive negative}}L imited US:{{cephalic breech transverse}} Situational Awareness:Support Person/Partner/Other Parent(s): MekhiSiblings: NonePossible Baby Name(s):Willing to participate in group visits: yesHome visits ok: yesEstablished Dentist: no; Dental Visit in the last year: noRegular Exercise Routine: yesTaking vitamin prior to : noOpen to vaccination: Tdap: yes; COVID: yes; Flu: yes; RSV: yesConsent for urine drug screen: yesEdinburgh: negPHQ9: neg GAD7: negACES: 0Resilience: highTrauma/PTSD screen: neg (11); SDOH: trouble with transportation, in need of dentistPlanning to breastfeed: yes; Circumcision: yes; Epidural: yesPost- contraception: Lc CARDENAS MD Attn: [address] [place], [address], [facility] 11/17/2023 09:32:46 OBGyn Episode Ob Episode Information Episode Created Date Number of Fetuses Patient Bloodtype Patient rh Status Prepregnancy Weight lbs Domestic Partner Domestic Partner Phone Father Name Secondary Connector Armature Status 10/10/19 24 1 B Positive 205 OPEN Fetus Data First Name Last Name Admitted to NICU Weight (g) Sex Living Outcome Pediatric Complications Fetus ID Race Codes Race Delivery Type [id number] Problems Problem Notes Problem Name Start Date End Date Resolution Snomed Code Not e Elevated blood-pressure reading without diagnosis of hypertension 10/13/2023 [id number] Baseline preeclampsia labs Insomnia 10/13/2023 [id number] Refractor y to unisom, trial benadryl Bacterial vaginosis in 10/12/2023 [id number] Initial labs , treated with flagyl Marijuana user 10/13/2023 463466602 Coun selled patient on marijuana cessation; advised there is no safe amount during . Patient had been self-medicating for nausea. Routine care 11/13/2023 976421523 Nausea and vomiting in 10/13/2023 7752305612 Refractory to unisom and B6, trial benadryl Urine test positive 10/13/2023 [id number] Maternal obesity complicating , childbirth and the puerperium, antepartum 10/13/2023 [id number] BMI 33.1, consi tvein ASA for preeclampsia prophylaxis Ritchie Calculation Initial Ritchie Date Initial Exam Date Initial Exam Provider Initial Ultrasound Date Last Menstrual Period Date Ultra Sound Weeks Gestation 06/03/2024 10/10/2023 [email or web address] 11/21/2023 08/28/2023 11 Eighteen To Twenty Week Ritchie Update Ultra Sound Date Fundal Height At Umbil Quickening Date Ultra Sound Latest Weeks Gestation Final Ritchie Confirmed By Final Ritchie Confirmed Date Final Ritchie Date Ultra Sound Latest Days Gestation 0 0 Pre- Flowsheet Flowsheet Date 10/10/2023 Schmidt Score Blood Edema Fundus Height Fundus Units Glucose Ketones Leukocytes Nitrite Labor Signs Protein Cervic Dilation Cervic Effacement Cervic Station none Other (see comments ) Type Weight in lbs Pre/Post Dialysis Refused With clothes 205.578167645405 BP Diastolic BP Location Tested BP Systolic BP Type 58 R arm 124 sitting 72 R arm 118 sitting Fetus Heart Rate Present Fetus Movement Comments Rosalia is a 18 y/o presenting at 6.1 days dated by LMP; here for initial OB exam. Initial US performed first trimester. Preg complicated by: marijuana use, hx chlamydia, hx trichomonas, hx asthma. She reports her LMP was 08/28/23, and had been regular. She was previously on depo until last year, then stopped. The was unplanned but is a welcome surprise. She reports living with her mom, step dad, and younger siblings. Her partner and FOB, Yoel, is involved and present at the appointment. She feels safe at home and in her relationship. She does wish to speak to a case maker about transportation difficulties and establishing care with a dentist. She also reports nausea and vomiting, smoking marijuana, mild intermittent headaches improved with water, lower stomach cramping, and insomnia since becoming . 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 She denies dizziness, changes in vision, numbness, tingling, chest pain, shortness of breath, and dysuria. Ultrasound performed at visit showing intrauterine gestational sac, no FHT or CRL measured due to early gestation. Plan to repeat in 4 week. Plan to also perform initial labs, continue PNV, and initiate pyridoxine and doxylamine for nausea and vomiting. Discussed lifestyle modifications to manage nausea and insomnia. Counselled patient on marijuana cessation; advised there is no safe amount during . Can consider ASA initiation at later appointment for preeclampsia prevention due to obesity and black race. Will also connect patient with resources for transportation and dentist. Initial blood pressure elevated to 124/58, improved to 118/72 on recheck, which is reassuring. Plan to follow-up in 4 weeks for further management. Flowsheet Date 11/07/2023 Schmidt Score Blood Edema Fundus Height Fundus Units Glucose Ketones Leukocytes Nitrite Labor Signs Protein Cervic Dilation Cervic Effacement Cervic Station none Other (see comments ) Type Weight in lbs Pre/Post Dialysis Refused With clothes 206.360920531758 BP Diastolic BP Location Tested BP Systolic BP Type 74 R arm 132 sitting Fetus Heart Rate Present Fetus Movement Comments Rosalia is a 18 y/o presenting at 9.6 days dated by LMP; here for routine OB exam. Initial US performed first trimester. Preg complicated by: nausea and vomiting, insomnia, marijuana use, tobacco use, varicella non-immune, hx chlamydia, hx trichomonas, hx asthma. Still with nausea and vomiting and insomnia refractory to B6 and unisom. Smoking marijuana to improve appetite. Has quit tobacco. She is planning on transferring care entirely to [facility] because it is closer to home. No red flag symptoms. Exam reassuring. Plan on inheritest and , repeat dating ultrasound. Menstrual History Last Menstrual Date Menses Monthly On Bcp Conception Prior Menses Frequency Hcg Plus Date Menarche Onset Age 0708/28/2023 true false 28 26/202 4 10 Delivery Information Delivery Date Delivery Type Labor Anesthesia Weeks Gestation Incision Type Labor Labor Length Hrs Delivered By Post Complications Tubal Sterilization Discharge Date Comments Discharge Information Feeding Method Contraceptive Method Maternal HG B and HCT Levels
== END 2024-03-20 18:55 | disposition left against medical advice (07) ==
LOC: ANHED 19:21
PROVIDERS: Emergency Provider Emergency Medicine; PCP Pediatrics
DX: R05.9 Cough, unspecified (principal); Z20.822 Contact with and (suspected) exposure to COVID-19
CPT/HCPCS: 87637; 99199

== ENCOUNTER 2024-06-01 12:30 | Inpatient (IN) | payer OTHER, SELFPAY ==
--- OUTSIDE RECORDS SUMMARY | 2024-06-01 17:18 | XMS_ITS | Data Portability ---
Author Organization [facility] [place] Address [address] [place] [address] [place] [address] Care Team Providers Care Quick Technician Name Role Phone WILVER ELI Primary Care Provider [phone] Assessment Encounter Date Assessment Date Assessment LastModified by Organization Details LastModified Time 05/31/2024 05/31/2024 Patient is ___weeks . Discussed plan. [email or web address] Not available 05/31/2024 12:26:26 Plan of Treatment Reminders Order Date Submit Date Provider Last Modified By Organization Details Last Modified Time Details Appointments INDUCTION 2024 12:00A Linda FIGUEROA MD Not available Not available Not available Lab None recorded. Referral None recorded. Procedures None recorded. Surgeries None recorded. Imaging US, obstetric , follow-up 2024 025 [email or web address] [address], [address], [place], [address], 05/31/2024 18:27:06 US, obstetric , biophysic al profile + non-stres s test 2024 025 [email or web address] [address], [address], [place], [address], 05/31/2024 18:27:06 US, doppler, umbilical artery velocimet ry [email or web address], [address], [place], [address], 05/31/2024 18:27:06 non-stres s test 2024 025 galina [email or web address] [place], [address], [address], [place], [address], 05/25/2024 01:50:30 US, obstetric , biophysic al profile + non-stres s test 2024 025 [email or web address] [address], [address], [place], [address], 05/24/2024 17:22:04 US, doppler, umbilical artery velocimet ry 2024 025 [email or web address] [address], [address], [place], [address], 05/24/2024 17:22:04 Medication Orders None recorded. Patient TargetsNo targets recorded. Patient InstructionsNo instructions recorded. Reason for Referral None Reported. Results Created Date Observation Date Name Description Value Unit Range Abnormal Flag Note LastModifiedBy Organization Detail LastModifiedTime 05/11/1905/10/2024 CULTU RE: GROUP B STREP SCREE N, REFLE X SUSCE PTIBI LITY result report SEE RESULT S BELOW abnormal Test: Cultu re: Group B Strep , Refle x Susce ptibi lity ([facility]/ [facility] ) Speci men Sourc e: Vagin a/Rec gurvinder Speci men Type: Vagin al/Re ctal Speci men Date: 2024 1625 Resul t Date: 2024 1606 Resul t Statu s: Final resul t Abnor mal: Yes Resul ting Lab: [facility] [address] [facility] [address] Tel: CULTU RE ----- ----- ----- --- Posit mounika for Strep tococ cus agala ctiae (Grou p B) (Abno rmal) Clind amyci n = resis tant, eryth romyc in = resis tant. Cefaz leeanne may be used for intra partu m proph ylaxi s in penic illin -gisela rgic women at low risk, and Vanco mycin is recom montse d for women at high risk for anaph ylaxi s. Jaleel ptibi dominikmerlyn testbuddy ng is not neces jin for these drugs . Not Available [facility] (Lab) [address], [place], [address], 05/14/2024 17:09:59 05/11/19 25 05/10/2024 US, obste tric, follo w-up No observ ation record ed. [email or web address] [address], [place], [address], 05/10/2024 17:14:53 05/11/19 25 05/10/2024 US, obste tric, bioph ysica l profi le No observ ation record ed. [email or web address] [place] [address], [place], [address], 05/10/2024 17:15:02 05/11/19 25 05/10/2024 US, doppl er, umbil ical arter y veloc imetr y No observ ation record ed. [email or web address] [place] [address], [place], [address], 05/10/2024 17:15:11 05/11/19 25 05/10/2024 US, obste tric, follo w-up No observ ation record ed. [email or web address] [address], [place], [address], 05/15/2024 23:14:19 05/11/19 25 05/10/2024 non-s tress test No observ ation record ed. [email or web address] [place] [address], [place], [address], 05/11/2024 21:47:31 05/12/19 non-s tress test No observ ation record ed. [email or web address] [place] [address], [place], [address], 05/11/2024 10:51:19 05/18/19 25 05/17/2024 non-s tress test No observ ation record ed. [email or web address] [place] [address], [place], [address], 05/17/2024 20:28:22 05/18/19 25 05/17/2024 US, obste tric, bioph ysica l profi le + non-s tress test No observ ation record ed. [email or web address] [place] [address], [place], [address], 05/17/2024 12:13:56 05/18/19 25 05/17/2024 US, doppl er, umbil ical arter y veloc imetr y No observ ation record ed. [email or web address] [place] [address], [place], [address], 05/17/2024 12:14:06 05/18/19 25 05/17/2024 US, obste tric, follo w-up No observ ation record ed. [email or web address] [address], [place], [address], 05/18/2024 13:40:21 05/25/19 25 05/24/2024 US, obste tric, bioph ysica l profi le + non-s tress test No observ ation record ed. [email or web address] [place] [address], [place], [address], 05/24/2024 13:49:45 05/25/19 25 05/24/2024 US, doppl er, umbil ical arter y veloc imetr y No observ ation record ed. [email or web address] [place] [address], [place], [address], 05/24/2024 13:49:54 05/25/19 25 05/24/2024 US, obste tric, bioph ysica l profi le + non-s tress test No observ ation record ed. [email or web address] [address], [place], [address], 05/25/2024 21:25:58 05/25/19 25 05/24/2024 non-s tress test No observ ation record ed. [place] [address], [place], [address], 05/24/2024 11:57:01 06/01/19 25 05/31/2024 US, obste tric, follo w-up No observ ation record ed. [facility] [address], [place], [address], 05/31/2024 13:54:49 06/01/19 25 05/31/2024 US, obste tric, bioph ysica l profi le + non-s tress test No observ ation record ed. [facility] [address], [place], [address], 05/31/2024 13:55:00 06/01/19 25 05/31/2024 US, doppl er, umbil ical arter y veloc imetr y No observ ation record ed. [facility] [address], [place], [address], 05/31/2024 13:55:11 06/01/19 25 05/31/2024 US, obste tric, follo w-up No observ ation record ed. [email or web address] [address], [place], [address], 05/31/2024 22:07:07 Result Notes None recorded. Problems Name Problem SNOMED Code Status Onset Date Resolution Date Notes Provider Name and Address Organization Details Recorded Time 75377061 Active 2023 Maliha Holt [facility] 4 11:58:45 Obesity 435505633 Active start ASA weekly testing at 37wks Bisi Ortiz [facility] 5 17:42:19 with uncertain dates 465906586 Active originall y was dated using last menstrual period, this gave significa nt growth restricti on at the 20 week ultrasoun d , very symmetric ,. further discussio n indicated irregular periods . To use 9 week ultrasoun d and observe carefully . Growth ultrasoun d in 3 weeks GROWTH CONTINUES TO LAG USING [place] - continue growth ultrasoun ds 03/26/24 Marcus Figueroa MD [address], [place], [address], [place] [facility] 5 12:54:36 growth restricti on 17056063 Active 10th percentil e, abdominal circumfer ence 8th percentil e, weekly BPP is and Doppler flow study, delivery at 39 weeks Bisi Ortiz [facility] 5 13:30:21 growth restricti on 30447133 Active 10th percentil e, abdominal circumfer ence 8th percentil e, weekly BPP is and Doppler flow study, delivery at 39 weeks Bisi Ortiz [facility] 5 13:30:21 Problem Notes None recorded. Procedures Surgical History Date Name Laterality Status Provider Name and Address Organization Details Recorded Time 5 Tonsillectomy completed Sravani Simmons [facility] 03/26/2024 12:40:02 Imaging Results Imaging Date Name Status LastModified by Organiz ation Details LastModified Time 05/10/2024 US, obstetric, follow-up completed [email or web address] [place] [address], [place], [address], 05/10/2024 17:14:53 05/10/2024 US, obstetric, biophysical profile completed [email or web address] [place] [address], [place], [address], 05/10/2024 17:15:02 05/10/2024 US, doppler, umbilical artery velocimetry completed [email or web address] [place] [address], [place], [address], 05/10/2024 17:15:11 05/10/2024 US, obstetric, follow-up completed [email or web address] [address], [place], [address], 05/15/2024 23:14:19 05/10/2024 non-stress test completed [email or web address] [place] [address], [place], [address], 05/11/2024 21:47:31 05/11/2024 non-stress test completed [email or web address] [place] [address], [place], [address], 05/11/2024 10:51:19 05/17/2024 non-stress test completed [email or web address] [place] [address], [place], [address], 05/17/2024 20:28:22 05/17/2024 US, obstetric, biophysical profile + non-stress test completed [email or web address] [place] [address], [place], [address], 05/17/2024 12:13:56 05/17/2024 US, doppler, umbilical artery velocimetry completed [email or web address] [place] [address], [place], [address], 05/17/2024 12:14:06 05/17/2024 US, obstetric, follow-up completed [email or web address] [address], [place], [address], 05/18/2024 13:40:21 05/24/2024 US, obstetric, biophysical profile + non-stress test completed [email or web address] [place] [address], [place], [address], 05/24/2024 13:49:45 05/24/2024 US, doppler, umbilical artery velocimetry completed [email or web address] [place] [address], [place], [address], 05/24/2024 13:49:54 05/24/2024 US, obstetric, biophysical profile + non-stress test completed [email or web address] [address], [place], [address], 05/25/2024 21:25:58 05/24/2024 non-stress test completed [address], [place], [address], 05/24/2024 11:57:01 05/31/2024 US, obstetric, follow-up completed [place] [address], [place], [address], 05/31/2024 13:54:49 05/31/2024 US, obstetric, biophysical profile + non-stress test completed [place] [address], [place], [address], 05/31/2024 13:55:00 05/31/2024 US, doppler, umbilical artery velocimetry completed [place] [address], [place], [address], 05/31/2024 13:55:11 05/31/2024 US, obstetric, follow-up completed [email or web address], [place], [address], 05/31/2024 22:07:07 Procedure Notes None recorded. Medical Equipment None [...] THREE TIMES A DAY FOR 30 DAYS 02/14 completed Not Available Not Available Not Available metronidazo le 500 mg tablet TAKE 1 TABLET BY MOUTH TWICE DAILY FOR 7 DAYS 11/08 completed Not Available Not Available Not Available ondansetron 8 mg disintegrat ing tablet PLACE 1 TABLET BY TRANSLING UAL ROUTE EVERY 6 TO 8 HOURS NEEDED active Not Available Not Available No t Available oseltamivir 75 mg capsule TAKE 1 CAPSULE BY MOUTH TWICE A DAY active Not Available Not Available No t Available misoprostol 100 mcg tablet Insert 1 [...] and Address Organization Details Last Updated DateTime 05/24/2024 042482.984 06 g 126 mm[Hg] 70 mm[Hg] Maliha [facility] 05/24/2024 11:39:11 Date Recorded Body height Body mass index (BMI) Body mass index (BMI) Percentile per age and sex Body weight Systolic blood pressure Diastolic blood pressure Provider Name and Address Organization Details Last Updated DateTime 170.18 cm 37.3 kg/m2 97 % 980733. 98 g 126 mm[Hg] 76 mm[Hg] GREG Garrison [facility] 11:56:21 Date Recorded Body weight Systolic blood pressure Diastolic blood pressure Provider Name and Address Organization Details Last Updated DateTime 05/31/2024 040747.576 43 g 124 mm[Hg] 72 mm[Hg] Maliha [facility] 05/31/2024 12:26:49 Social History Question Answer Notes LastModified by Organizat ion Details LastModified Time Tobacco Smoking Status Never [facility] 04/04/2021 12:33:06 Do You Have An Advance Directive? No [email or web address] Information n ot available 03/26/2024 What Is Your Level Of Alcohol Consumption? None [email or web address] Information not available 04/04/2021 How Many Years Have You Consumed Alcohol? 1 [email or web address] Information not available 03/26/2024 Are You Blind Or Do You Have Difficulty Seeing? No [email or web address] Information n ot available 04/04/2021 What Is Your Level Of Caffeine Consumption? None [email or web address] Information not available 03/26/2024 How Much Tobacco Do You Chew? None [email or web address] Information not available 03/26/2024 In The 14 Days Before Symptom Onset, Have You Had Close Contact With A Laboratory-confirm ed COVID-19 While That Case Was Ill? No [email or web address] Information n ot available 04/04/2021 In The 14 Days Before Symptom Onset, Have You Had Close Contact With A Person Who Is Under Investigation For COVID-19 While That Person Was Ill? No [email or web address] Information not available 04/04/2021 Have You Been To An Area Known To Be High Risk For COVID-19? No [email or web address] Information not available 04/04/2021 Are You Deaf Or Do You Have Serious Difficulty Hearing? No [email or web address] Information not available 04/04/2021 What Type Of Diet Are You Following? REGULAR [email or web address] Information n ot available 04/04/2021 What Is The Highest Grade Or Level Of School You Have Completed Or The Highest Degree You Have Received? MI68307-2 [email or web address] Information not available 03/26/2024 What Is Your Occupation? [employer] [email or web address] Information not available 03/26/2024 Are There Any Guns Present In Your Home? No [email or web address] Information not available 03/26/2024 Do You Use Protection During Sex? Always [email or web address] Information not available 03/26/2024 Do You Use Your Seat Belt Or Car Seat Routinely? Yes [email or web address] Information not available 04/04/2021 Do You Have Smoke And Carbon Monoxide Detectors In Your Home? Yes [email or web address] Information not available 04/04/2021 At What Age Did You Start Smoking Tobacco? 14 [email or web address] Information not available 03/26/2024 How Much Tobacco Do You Smoke? No [email or web address] Information not available 03/26/2024 Do You Feel Stressed (tense, Restless, Nervous, Or Anxious, Or Unable To Sleep At Night)? [id number] Information not available 03/26/2024 Do You Use Any Illicit Or Recreational Drugs? No [email or web address] Information not available 04/04/2021 Do You Use Sunscreen Routinely? No [email or web address] Information not available 03/26/2024 Has Tobacco Cessation Counseling Been Provided? No [email or web address] Information not available 04/04/2021 Have You Used IV Drugs? No [email or web address] Information not available 03/26/2024 Do You Or Have You Ever Used Any Other Forms Of Tobacco Or Nicotine? No [email or web address] Information not available 04/04/2021 Sex: Unknown Functional Status Question Answer Note LastModified by Organizat ion Details LastModified Time Do you have difficulty walking or climbing stairs? No Information not available 04/04/2021 Are you able to walk? YESWOREST [email or web address] Information not available 04/04/2021 Are you able to care for yourself? Yes [email or web address] Information not available 04/04/2021 Do you have difficulty dressing or bathing? No [email or web address] Information not available 04/04/2021 What is your exercise level? Moderate Information not available 03/26/2024 Mental Status None recorded. Family History Relationship Description Onset Age of this Age Resolved Age Notes LastModified by Organization Details LastModified Time Father No current problems or disability [email or web address] Not available 03/17 18:32:04 Mother No current problems or disability [email or web address] Not available 03/17 18:32:04 Medical History Condition Response Allergies (Food, seasonal, environmental ) N Other N Drug/Latex Allergies/Reactions N Blood Transfusion N Breast Cancer N Dermatologic Disorders N Lung Disease N Defects or Inherited Disease N Breast Problem N Gestational Diabetes N Hematologic disorders N Anesthesia Complications N History of STI Y Deep Vein Thrombosis N Polycystic ovary syndrome N Anxiety Disorder N Autoimmune disease N Arthritis N Polyps N Infertility N Acid Reflux (GERD) N History of abnormal pap N Cancer N Varicosities N Stroke N Neurologic/Epilepsy N Endometriosis N High Cholesterol N Fibromyalgia N Headaches N Kidney Disease N Heart Problems N Thyroid Problems N Kidney or Bladder Problems N GI Problems N Eating Disorder [...] of Last Mammogram Date of LMP 08/28/2023 N On BCP's at Conception? N STIs/STDs Yes Was last menstrual period normal N HPV Vaccine Y Duration of Flow (days) 3 Current Control Method Age at First Child 18 Date of control 03/25/2021 Are cycles usually normal N Date of Last Colonoscopy Most Recent Bone Density Sexually Active? Y Unknown Menses Monthly N Age of first menstrual cycle 9 Date of Last Pap Smear Sexual Problems? N LMP Definite N Obstetrics History GPAL:G 1 P 0 0 0 0 Type Value Living 0 Total 1 Past Encounters Encounter ID Performer Location Encounter Start Date Encounter Closed Date Diagnosis/Indication Diagnosis SNOMED-CT Code Diagnosis ICD10 Code Diagnosis Note [id number] Jasmyne Lockett [facility] [address] [address] 02/25/2021 15:24:52 02/26/2021 15:59:34 Contraception care management 349644606 Z30.9 Discussed all control options and pt [...] exposure to the Covid-19 virus during this patient s visit, including available hand shift boss upon arrive, temperatur e check and being asked a series of screening questions. All staff wore face coverings during this encounter, as well as provided additional cleaning and sanitizing of all surfaces, including countertop s, pens, chairs, door handles, light switches, etc, prior to and following the patient s visit. [id number] Jasmyne Lockett [facility] [address],[facility] [place] [address] 04/04/2021 12:11:40 04/04/2021 13:07:31 Venereal disease screening 786052176 Z11.3 Urine sent for VINAY.Will contact with resultsShe updated her partner but she is no longer with this person so is unsure if they got treated or not.She is doing well, no sx's. [facility] 626890775 Z30.9 Discussed all control options in great [...] her OCP since UPT is neg today. [id number] [facility] [address],[place] [address] 11/08/2023 10:40:26 11/08/2023 12:49:36 test positive 739873971 Z32.01 [id number] Marcus Figueroa MD [place] [address],[place] [address] 11/09/2023 14:14:14 11/09/2023 15:55:33 Amenorrhea 43642728 N91.2 [id number] Brigida Hoffmann [place] [address] [place] [address] 12/01/2023 11:05:41 12/01/2023 11:41:02 screening 697197985 Z36.82 Z3A.13 [id number] Maliha Jonathon [place] [address] [place] [address] 12/01/2023 11:06:09 12/01/2023 12:40:34 Routine care 065100246 Z34.91 Gestation period, 12 weeks 06122096 Z3A.12 [id number] Marcus Figueroa MD [place] [address] [place] [address] 12/29/2023 12:25:10 12/29/2023 12:53:13 Routine care 059265668 Z34.91 [id number] Maribell Hill [place] [address],[place] [address] 01/19/2024 09:29:51 01/19/2024 10:34:50 screening for malformation 845189766 Z36.3 Z3A.20 [id number] Marcus Figueroa MD [place] [address],[place] [address] 01/19/2024 09:33:22 01/19/2024 11:11:46 Routine care 653504534 Z34.91 [id number] [facility] [address],[place] [address] 02/16/2024 15:08:47 02/16/2024 15:46:27 Uterine size for dates discrepancy 008642406 O26.842 Z3A.23 [id number] Marcus Figueroa MD [place] [address],[place] [address] 02/16/2024 15:09:15 02/16/2024 16:32:09 Routine care 722551868 Z34.91 [id number] Marcus Figueroa MD [place] [address],[place] [address] 03/15/2024 11:52:46 03/15/2024 14:23:10 Routine care 625970755 Z34.91 [id number] [facility] [address],[place] [address] 03/26/2024 11:27:08 03/26/2024 12:15:33 Small for gestational age fetus 743872102 O36.5930 Z3A.29 [id number] Marcus Figueroa MD [place] [address],[place] [address] 03/26/2024 12:01:06 03/26/2024 12:57:08 Routine care 439543088 Z34.91 [id number] Brigida Hoffmann [place] [address],[place] [address] 04/19/2024 10:34:56 04/19/2024 11:09:12 Small for gestational age fetus 108726414 O36.5930 Z3A.32 [id number] Marcus Figueroa MD [place] [address],[place] [address] 04/19/2024 10:35:13 04/19/2024 12:16:44 Routine care 884051618 Z34.91 [id number] Marcus Figueroa MD [place] [address],[place] [address] 05/03/2024 11:27:14 05/03/2024 12:56:33 Routine care 538508589 Z34.91 [id number] Marcus Figueroa MD [place] [address],[place] [address] 05/10/2024 15:35:39 05/10/2024 17:27:16 Routine care 913645218 Z34.91 [id number] [facility] [address] [address] 05/10/2024 15:35:57 05/10/2024 16:25:40 Small for gestational age fetus 121968782 O36.5930 Z3A.35 [id number] [facility] [address],[place] [address] 05/10/2024 18:20:54 05/11/2024 04:22:17 growth restriction 74349546 O36.5999 [id number] GREG Garrison [place] [address],[place] [address] 05/17/2024 09:23:04 05/17/2024 10:16:04 growth restriction 28877826 O36.5999 [id number] [facility] [address],[place] [address] 05/17/2024 09:23:42 05/17/2024 10:35:19 Small for gestational age fetus 217970331 O36.5930 Z3A.36 [id number] Marcus Figueroa MD [place] [address],[place] [address] 05/17/2024 09:23:56 05/17/2024 11:29:53 Routine care 334187240 Z34.91 [id number] [facility] [address],[place] [address] 05/24/2024 10:18:32 05/24/2024 11:56:08 Small for gestational age fetus 664669823 O36.5930 Z3A.37 [id number] GREG Garrison [place] [address],[place] [address] 05/24/2024 10:19:00 05/24/2024 13:26:20 growth restriction 77267377 O36.5999 [id number] Marcus Figueroa MD [place] [address],[place] [address] 05/24/2024 10:19:11 05/24/2024 12:23:32 Routine care 741618147 Z34.91 [id number] [facility] [address],[place] [address] 05/31/2024 10:38:38 05/31/2024 11:22:31 care status 231480502 O36.5930 Z3A.38 [id number] Marcus Figueroa MD [place] [address],[place] [address] 05/31/2024 10:39:06 05/31/2024 13:36:23 91317079 Z34.00 Health Concerns Section Related Observation LastModified by Organization Detai ls LastModified Time None Recorded Concern Status LastModified by Organization Details LastModified Time None Recorded Advance Directives Directive N: Payers Encounter Date Sequence Insurance Name Policy Number Policy Hicks Covered Member ID Hicks Member ID Guarantor Name 05/24/2024 1 [facility] (MEDICAID HMO) [id number] Rosalia Ortiz [id number] Rosalia Ortiz 05/24/2024 1 [facility] (MEDICAID HMO) [id number] Rosalia Ortiz [id number] Rosalia Ortiz 05/31/2024 1 [facility] (MEDICAID HMO) [id number] Rosalia Ortiz [id number] Rosalia Ortiz 05/31/2024 1 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 further discussion indicated irregular periods . To use 9 week ultrasound and observe carefully. Growth ultrasound in 3 weeks GROWTH CONTINUES TO LAG USING NEW ARI[place] - continue growth ultrasounds 03/26/24 growth restriction [id number] 10th percentile , abdominal circumference 8th percentile, weekly BPP is and Doppler flow study, delivery at 39 weeks Ariadna Calculation Initial Ariadna Date Initial Exam Date Initial Exam Provider Initial Ultrasound Date Last Menstrual Period Date Ultra Sound Weeks Gestation 12/01/2023 11/08/2023 08/28/2023 9 Eighteen To Twenty Week Ariadna Update Ultra Sound Date Fundal Height At Umbil Quickening Date Ultra Sound Latest Weeks Gestation Final Ariadna Confirmed By Final Ariadna Confirmed Date Final Ariadna Date Ultra Sound Latest Days Gestation 0 [email or web address] 01/19/2024 06/09/19 25 0 Pre-[place] Flowsheet Flowsheet Date 12/01/2023 Schmidt Score Blood Edema Fundus Height Fundus Units Glucose Ketones Leukocytes Nitrite Labor Signs Protein Cervic Dilation Cervic Effacement Cervic Station Type Weight in lbs Pre/Post Dialysis Refused Weight 207.492501433475 BP Diastolic BP Location Tested BP Systolic [...] Type Weight in lbs Pre/Post Dialysis Refused 218.184560874139 BP Diastolic BP Location Tested BP Systolic [...] Type Weight in lbs Pre/Post Dialysis Refused 219.352989446347 BP Diastolic BP Location Tested BP Systolic [...] Type Weight in lbs Pre/Post Dialysis Refused 227.488973113875 BP Diastolic BP Location Tested BP Systolic [...] Type Weight in lbs Pre/Post Dialysis Refused 227.115661071787 BP Diastolic BP Location Tested BP Systolic BP Type 66 L arm 116 sitting Fetus Heart Rate Present A 145 Fetus Movement A Yes Comments no complaints, no problems, routine care, no contractions, no vaginal bleeding, no loss of fluid, no cramping Flowsheet Date 03/26/2024 Schmidt Score Blood Edema Fundus Height Fundus Units Glucose Ketones Leukocytes Nitrite Labor Signs Protein Cervic Dilation Cervic Effacement Cervic Station Type Weight in lbs Pre/Post Dialysis Refused BP Diastolic BP Location Tested BP Systolic BP Type Fetus Heart Rate Present Fetus Movement Comments Flowsheet Date 03/26/2024 Schmidt Score Blood Edema Fundus Height Fundus Units Glucose Ketones Leukocytes Nitrite Labor Signs Protein Cervic Dilation Cervic Effacement Cervic Station neg none Type Weight in lbs Pre/Post Dialysis Refused 221.637039804447 BP Diastolic BP Location Tested BP Systolic BP Type 76 119 Fetus Heart Rate Present A 145 Fetus Movement A Yes Comments no complaints, no problems, routine care, no contractions, no vaginal bleeding, no loss of fluid, no cramping to continue serial growth, discussed small measurements today Flowsheet Date 04/19/2024 Schmidt Score Blood Edema Fundus Height Fundus Units Glucose Ketones Leukocytes Nitrite Labor Signs Protein Cervic Dilation Cervic Effacement Cervic Station Type Weight in lbs Pre/Post Dialysis Refused BP Diastolic BP Location Tested BP Systolic BP Type Fetus Heart Rate Present Fetus Movement Comments Flowsheet Date 04/19/2024 Schmidt Score Blood Edema Fundus Height Fundus Units Glucose Ketones Leukocytes Nitrite Labor Signs Protein Cervic Dilation Cervic Effacement Cervic Station Type Weight in lbs Pre/Post Dialysis Refused 235.417101367727 BP Diastolic BP Location Tested BP Systolic BP Type 63 L arm 100 sitting Fetus Heart Rate Present A 145 Fetus Movement A Yes Comments no complaints, no problems, routine care, no contractions, no vaginal bleeding, no loss of fluid, no cramping Flowsheet Date 05/03/2024 Schmidt Score Blood Edema Fundus Height Fundus Units Glucose Ketones Leukocytes Nitrite Labor Signs Protein Cervic Dilation Cervic Effacement Cervic Station Type Weight in lbs Pre/Post Dialysis Refused Weight 231.842383862344 BP Diastolic BP Location Tested BP Systolic BP Type 65 L arm 108 sitting Fetus Heart Rate Present A 142 Present Fetus Movement A Yes Comments no complaints, no problems, routine care, no contractions, no vaginal bleeding, no loss of fluid, no cramping Flowsheet Date 05/10/2024 Schmidt Score Blood Edema Fundus Height Fundus Units Glucose Ketones Leukocytes Nitrite Labor Signs Protein Cervic Dilation Cervic Effacement Cervic Station Type Weight in lbs Pre/Post Dialysis Refused BP Diastolic BP Location Tested BP Systolic BP Type Fetus Heart Rate Present Fetus Movement Comments Flowsheet Date 05/10/2024 Schmidt Score Blood Edema Fundus Height Fundus Units Glucose Ketones Leukocytes Nitrite Labor Signs Protein Cervic Dilation Cervic Effacement Cervic Station Type Weight in lbs Pre/Post Dialysis Refused 243.175774601627 BP Diastolic BP Location Tested BP Systolic BP Type 64 L arm 115 sitting Fetus Heart Rate Present A 145 Fetus Movement A Yes Comments no complaints, no problems, routine care, no contractions, no vaginal bleeding, no loss of fluid, no cramping to the percentile growth, to have weekly BPP is in Doppler flow studies until she delivers at 39 weeks Flowsheet Date 05/10/2024 Schmidt Score Blood Edema Fundus Height Fundus Units Glucose Ketones Leukocytes Nitrite Labor Signs Protein Cervic Dilation Cervic Effacement Cervic Station Type Weight in lbs Pre/Post Dialysis Refused Weight 243.839671616424 BP Diastolic BP Location Tested BP Systolic BP Type 64 L arm 115 sitting Fetus Heart Rate Present Fetus Movement Comments Flowsheet Date 05/17/2024 Schmidt Score Blood Edema Fundus Height Fundus Units Glucose Ketones Leukocytes Nitrite Labor Signs Protein Cervic Dilation Cervic Effacement Cervic Station Type Weight in lbs Pre/Post Dialysis Refused Weight 237.8538050662 BP Diastolic BP Location Tested BP Systolic BP Type 72 L arm 116 sitting Fetus Heart Rate Present Fetus Movement Comments Flowsheet Date 05/17/2024 Schmidt Score Blood Edema Fundus Height Fundus Units Glucose Ketones Leukocytes Nitrite Labor Signs Protein Cervic Dilation Cervic Effacement Cervic Station Type Weight in lbs Pre/Post Dialysis Refused BP Diastolic BP Location Tested BP Systolic BP Type Fetus Heart Rate Present Fetus Movement Comments Flowsheet Date 05/17/2024 Schmidt Score Blood Edema Fundus Height Fundus Units Glucose Ketones Leukocytes Nitrite Labor Signs Protein Cervic Dilation Cervic Effacement Cervic Station Type Weight in lbs Pre/Post Dialysis Refused Weight 237.0933600224 BP Diastolic BP Location Tested BP Systolic BP Type 72 L arm 116 sitting Fetus Heart Rate Present A 145 Fetus Movement A Yes Comments no complaints, no problems, routine care, no contractions, no vaginal bleeding, no loss of fluid, no cramping Flowsheet Date 05/24/2024 Schmidt Score Blood Edema Fundus Height Fundus Units Glucose Ketones Leukocytes Nitrite Labor Signs Protein Cervic Dilation Cervic Effacement Cervic Station Type Weight in lbs Pre/Post Dialysis Refused BP Diastolic BP Location Tested BP Systolic BP Type Fetus Heart Rate Present Fetus Movement Comments Flowsheet Date 05/24/2024 Schmidt Score Blood Edema Fundus Height Fundus Units Glucose Ketones Leukocytes Nitrite Labor Signs Protein Cervic Dilation Cervic Effacement Cervic Station Type Weight in lbs Pre/Post Dialysis Refused Weight 238.570392850333 BP Diastolic BP Location Tested BP Systolic BP Type 76 L arm 126 sitting Fetus Heart Rate Present Fetus Movement Comments Flowsheet Date 05/24/2024 Schmidt Score Blood Edema Fundus Height Fundus Units Glucose Ketones Leukocytes Nitrite Labor Signs Protein Cervic Dilation Cervic Effacement Cervic Station Type Weight in lbs Pre/Post Dialysis Refused 238.392765069978 BP Diastolic BP Location Tested BP Systolic BP Type 70 L arm 126 sitting Fetus Heart Rate Present A 145 Fetus Movement A Yes Comments no complaints, no problems, routine care, no contractions, no vaginal bleeding, no loss of fluid, no cramping Flowsheet Date 05/31/2024 Schmidt Score Blood Edema Fundus Height Fundus Units Glucose Ketones Leukocytes Nitrite Labor Signs Protein Cervic Dilation Cervic Effacement Cervic Station Type Weight in lbs Pre/Post Dialysis Refused BP Diastolic BP Location Tested BP Systolic BP Type Fetus Heart Rate Present Fetus Movement Comments Flowsheet Date 05/31/2024 Schmidt Score Blood Edema Fundus Height Fundus Units Glucose Ketones Leukocytes Nitrite Labor Signs Protein Cervic Dilation Cervic Effacement Cervic Station Type Weight in lbs Pre/Post Dialysis Refused BP Diastolic BP Location Tested BP Systolic BP Type Fetus Heart Rate Present Fetus Movement Comments Flowsheet Date 05/31/2024 Schmidt Score Blood Edema Fundus Height Fundus Units Glucose Ketones Leukocytes Nitrite Labor Signs Protein Cervic Dilation Cervic Effacement Cervic Station Type Weight in lbs Pre/Post Dialysis Refused 239.687771572160 BP Diastolic BP Location Tested BP Systolic BP Type 72 L arm 124 sitting Fetus Heart Rate Present Fetus Movement A Yes Comments growth restriction, oligohyd ramnios, to start induction of labor tomorrow, reassuring testing, 3 x 2 pocket of amniotic fluid. Menstrual History Last Menstrual Date Menses Monthly [...]
--- OUTSIDE RECORDS SUMMARY | 2024-06-01 17:18 | XMS_ITS | Continuity of Care Document ---
Author Organization [facility] Address [address] [place] [address] [address] [place] [address] Phone Care Team Providers Care Bank Credit Card Collection Clerk Name Role Phone Arredondo OD, Carlos Unavailable Unavailable Procedures Procedure Date Eye Exam, New Patient Refraction Advance Directives Directive Yes / No Effective Date File Name No Information Encounters Encounter Description Practice Location Reason(s) For Visit Diagnoses Date Provider Providers Copied on Encounter [facility], [address] [place] [address] [address], [place], [place], [id number], [place] tel:[phone] [facility] No Information [phone] Arredondo OD Carlos. [address] [place] , [address], [place], [address], [place]. tel:[phone] Family History Family Member Type Diagnosis Age At Onset No Information Payers Payer name Insurance type Covered democrat ID Authoriza tion(s) Medicaid [facility] [id number] Social History Type Description Quantity Date Captured [...]
--- OUTSIDE RECORDS SUMMARY | 2024-06-01 17:18 | XMS_ITS | Continuity of Care Document ---
Author Organization [facility], [facility] Address [address] [place] [address] Care Team Providers Care Draw In Hand Name Role Phone WILVER ELI Primary Care Provider Assessment Encounter Date Assessment Date Assessment LastModified by Organization Details LastModified Time 05/31/2024 05/31/2024 Patient is ___weeks . Discussed plan. [email or web address] Not available 05/31/2024 12:26:26 Plan of Treatment Reminders Order Date Submit Date Provider Last Modified By Organization Details Last Modified Time Details Appointments INDUCTION 2024 12:00A Linda MIRANDA MD Not available Not available Not available Lab None recorded. Referral None recorded. Procedures None recorded. Surgeries None recorded. Imaging None recorded. Medication Orders None recorded. Patient TargetsNo targets recorded. Patient InstructionsNo instructions recorded. Reason for Referral None Reported. Results Created Date Observation Date Name Description Value Unit Range Abnormal Flag Note LastModifiedBy Organization Detail LastModifiedTime 12/01/1912/01/2023 US, obste tric, nucha l trans lucen cy No observ ation record ed. [email or web address] [facility] [address], [place], [address], 12/01/2023 11:38:46 12/01/1912/01/2023 US, obste tric, follo w-up No observ ation record ed. [email or web address] [address], [place], [address], 12/01/2023 21:06:23 01/19/20 24 01/19/2024 US, obste tric, 2nd or 3rd trime ster No observ ation record ed. [email or web address] [facility] [address], [place], [address], 01/19/2024 12:55:29 01/19/20 24 01/19/2024 US, obste tric, 2nd or 3rd trime ster No observ ation record ed. [email or web address] [address], [place], [address], 01/19/2024 23:42:20 02/15/19 25 02/16/2024 US, obste tric, follo w-up No observ ation record ed. [email or web address] [place] [address], [place], [address], 02/16/2024 18:23:53 02/15/19 25 02/16/2024 US, obste tric, follo w-up No observ ation record ed. [email or web address] [address], [place], [address], 03/20/2024 09:48:19 02/27/19 25 02/28/2024 non-s tress test No observ ation record ed. [address], [place], [address], 02/29/2024 10:47:24 03/26/19 25 03/26/2024 US, obste tric, follo w-up No observ ation record ed. [email or web address] [facility] [address], [place], [address], 03/26/2024 13:56:35 03/26/19 25 03/26/2024 US, obste tric, follo w-up No observ ation record ed. [email or web address] [address], [place], [address], 03/27/2024 22:32:13 04/20/19 25 04/19/2024 US, obste tric, follo w-up No observ ation record ed. [email or web address] [facility] [address], [place], [address], 04/19/2024 15:30:55 04/20/19 25 04/19/2024 US, obste tric, follo w-up No observ ation record ed. [email or web address] [address], [place], [address], 05/03/2024 17:13:02 05/11/19 25 05/10/2024 US, obste tric, follo w-up No observ ation record ed. [email or web address] [place] [address], [place], [address], 05/10/2024 17:14:53 05/11/19 25 05/10/2024 US, obste tric, bioph ysica l profi le No observ ation record ed. [email or web address] [facility] [address], [place], [address], 05/10/2024 17:15:02 05/11/19 25 05/10/2024 US, doppl er, umbil ical arter y veloc imetr y No observ ation record ed. [email or web address] [facility] [address], [place], [address], 05/10/2024 17:15:11 05/11/19 25 05/10/2024 US, obste tric, follo w-up No observ ation record ed. [email or web address] [address], [place], [address], 05/15/2024 23:14:19 05/11/19 25 05/10/2024 non-s tress test No observ ation record ed. [email or web address] [place] [address], [place], [address], 05/11/2024 21:47:31 05/12/19 non-s tress test No observ ation record ed. [email or web address] [place] [address], [place], [address], 05/11/2024 10:51:19 05/18/19 25 05/17/2024 non-s tress test No observ ation record ed. [email or web address] [place] [address], [place], [address], 05/17/2024 20:28:22 05/18/19 25 05/17/2024 US, obste tric, bioph ysica l profi le + non-s tress test No observ ation record ed. [email or web address] [facility] [address], [place], [address], 05/17/2024 12:13:56 05/18/19 25 05/17/2024 US, doppl er, umbil ical arter y veloc imetr y No observ ation record ed. [email or web address] [facility] [address], [place], [address], 05/17/2024 12:14:06 05/18/19 25 05/17/2024 US, obste tric, follo w-up No observ ation record ed. [email or web address] [address] [facility], [place], [address], 05/18/2024 13:40:21 05/25/19 25 05/24/2024 US, obste tric, bioph ysica l profi le + non-s tress test No observ ation record ed. [email or web address] [place] [address], [place], [address], 05/24/2024 13:49:45 04/10/05/24/2024 US, doppl er, umbil ical arter y veloc imetr y No observ ation record ed. [email or web address] [place] [address], [place], [address], 05/24/2024 13:49:54 05/25/19 25 05/24/2024 US, obste tric, bioph ysica l profi le + non-s tress test No observ ation record ed. [email or web address] [address], [place], [address], 05/25/2024 21:25:58 05/25/19 25 05/24/2024 non-s tress test No observ ation record ed. [email or web address] [place] [address], [place], [address], 05/24/2024 11:57:01 06/01/19 25 05/31/2024 US, obste tric, follo w-up No observ ation record ed. [facility] [address], [place], [address], 05/31/2024 13:54:49 06/01/19 25 05/31/2024 US, obste tric, bioph ysica l profi le + non-s tress test No observ ation record ed. [facility] [address], [place], [address], 05/31/2024 13:55:00 06/01/19 25 05/31/2024 US, doppl er, umbil ical arter y veloc imetr y No observ ation record ed. [facility] [address], [place], [address], 05/31/2024 13:55:11 06/01/19 25 05/31/2024 US, obste tric, follo w-up No observ ation record ed. [email or web address] [address], [place], [address], 05/31/2024 22:07:07 Result Notes None recorded. Problems Name Problem SNOMED Code Status Onset Date Resolution Date Notes Provider Name and Address Organization Details Recorded Time 55006972 Active [address] [facility] 4 11:58:45 Obesity 235623490 Active start ASA weekly testing at 37wks Bisi Ortiz [facility] 5 17:42:19 with uncertain dates 944220450 Active originall y was dated using last menstrual period, this gave significa nt growth restricti on at the 20 week ultrasoun d , very symmetric ,. further discussio n indicated irregular periods . To use 9 week ultrasoun d and observe carefully . Growth ultrasoun d in 3 weeks GROWTH CONTINUES TO LAG USING [place] - continue growth ultrasoun ds 03/26/24 Marcus Miranda MD [address], [place], [address], [place] [facility] 5 12:54:36 growth restricti on 88710627 Active 10th percentil e, abdominal circumfer ence 8th percentil e, weekly BPP is and Doppler flow study, delivery at 39 weeks [address] [facility] 5 13:30:21 growth restricti on 55038300 Active 10th percentil e, abdominal circumfer ence 8th percentil e, weekly BPP is and Doppler flow study, delivery at 39 weeks [address] [facility] 5 13:30:21 Problem Notes None recorded. Procedures Surgical History Date Name Laterality Status Provider Name and Address Organization Details Recorded Time 5 Tonsillectomy completed Sravani Simmons [facility] 03/26/2024 12:40:02 Imaging Results None recorded. Procedure Notes None recorded. Medical Equipment None [...] Address Organization Details Last Updated DateTime 05/31/2024 945748.576 43 g 124 mm[Hg] 72 mm[Hg] Maliha Holt [facility] 05/31/2024 12:26:49 Social History Question Answer Notes LastModified by Organizat ion Details LastModified Time Tobacco Smoking Status Never Smoker Sravani Troy patten, [facility] 04/04/2021 12:33:06 Do You Have An Advance Directive? No [email or web address] Information n ot available 03/26/2024 What Is Your Level Of Alcohol Consumption? None [email or web address] Information not available 04/04/2021 How Many Years Have You Consumed Alcohol? 1 [email or web address] Information not available 03/26/2024 Are You Blind Or Do You Have Difficulty Seeing? No [email or web address] Information n ot available 04/04/2021 What Is Your Level Of Caffeine Consumption? None [email or web address] Information not available 03/26/2024 How Much Tobacco Do You Chew? None [email or web address] Information not available 03/26/2024 In The 14 Days Before Symptom Onset, Have You Had Close Contact With A Laboratory-confirm ed COVID-19 While That Case Was Ill? No [email or web address] Information n ot available 04/04/2021 In The 14 Days Before Symptom Onset, Have You Had Close Contact With A Person Who Is Under Investigation For COVID-19 While That Person Was Ill? No [email or web address] Information not available 04/04/2021 Have You Been To An Area Known To Be High Risk For COVID-19? No Information not available 04/04/2021 Are You Deaf Or Do You Have Serious Difficulty Hearing? No [email or web address] Information not available 04/04/2021 What Type Of Diet Are You Following? REGULAR [email or web address] Information n ot available 04/04/2021 What Is The Highest Grade Or Level Of School You Have Completed Or The Highest Degree You Have Received? 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 No [email or web address] Information not available 03/26/2024 Do You Use Protection During Sex? Always [email or web address] Information not available 03/26/2024 Do You Use Your Seat Belt Or Car Seat Routinely? Yes [email or web address] Information not available 04/04/2021 Do You Have Smoke And Carbon Monoxide Detectors In Your Home? Yes [email or web address] Information not available 04/04/2021 At What Age Did You Start Smoking Tobacco? 14 [email or web address] Information not available 03/26/2024 How Much Tobacco Do You Smoke? No [email or web address] Information not available 03/26/2024 Do You Feel Stressed (tense, Restless, Nervous, Or Anxious, Or Unable To Sleep At Night)? [id number] [email or web address] Information not available 03/26/2024 Do You Use Any Illicit Or Recreational Drugs? No [email or web address] Information not available 04/04/2021 Do You Use Sunscreen Routinely? No [email or web address] Information not available 03/26/2024 Has Tobacco Cessation Counseling Been Provided? No [email or web address] Information not available 04/04/2021 Have You Used IV Drugs? No [email or web address] Information not available 03/26/2024 Do You Or Have You Ever Used Any Other Forms Of Tobacco Or Nicotine? No Information not available 04/04/2021 Sex: Unknown Functional Status Question Answer Note LastModified by Organizat ion Details LastModified Time Do you have difficulty walking or climbing stairs? No [email or web address] Information not available 04/04/2021 Are you able to walk? YESWOREST [email or web address] Information not available 04/04/2021 Are you able to care for yourself? Yes [email or web address] Information not available 04/04/2021 Do you have difficulty dressing or bathing? No [email or web address] Information not available 04/04/2021 What is your exercise level? Moderate [email or web address] Information not available 03/26/2024 Mental Status None recorded. Family History Relationship Description Onset Age of this Age Resolved Age Notes LastModified by Organization Details LastModified Time Father No current problems or disability [email or web address] Not available 03/17 18:32:04 Mother No current problems or disability [email or web address] Not available 03/17 18:32:04 Medical History Condition [...] SNOMED-CT Code Diagnosis ICD10 Code Diagnosis Note [id number] Marcus Miranda MD [place] [address],[place] [address] 05/03/2024 11:27:14 05/03/2024 12:56:33 Routine care 706492388 Z34.91 [id number] Marcus Miranda MD [place] [address],[place] [address] 05/10/2024 15:35:39 05/10/2024 17:27:16 Routine care 822819937 Z34.91 [id number] Maribell Hill [facility] [address] [address] 05/10/2024 15:35:57 05/10/2024 16:25:40 Small for gestational age fetus 084500281 O36.5930 Z3A.35 [id number] Maliha Holt [facility] [address],[place] [address] 05/10/2024 18:20:54 05/11/2024 04:22:17 growth restriction 84762063 O36.5999 [id number] [facility] [address],[place] [address] 05/17/2024 09:23:04 05/17/2024 10:16:04 growth restriction 35427265 O36.5999 [id number] [facility] [address],[place] [address] 05/17/2024 09:23:42 05/17/2024 10:35:19 Small for gestational age fetus 767117423 O36.5930 Z3A.36 [id number] Marcus Miranda MD [facility] [address],[place] [address] 05/17/2024 09:23:56 05/17/2024 11:29:53 Routine care 890155558 Z34.91 [id number] Brigida Hoffmann [facility] [address],[place] [address] 05/24/2024 10:18:32 05/24/2024 11:56:08 Small for gestational age fetus 975709082 O36.5930 Z3A.37 [id number] [facility] [address],[place] [address] 05/24/2024 10:19:00 05/24/2024 13:26:20 growth restriction 79310980 O36.5999 [id number] Marcus Miranda MD [place] [address],[place] [address] 05/24/2024 10:19:11 05/24/2024 12:23:32 Routine care 289358579 Z34.91 [id number] Brigida Hoffmann [facility] [address],[place] [address] 05/31/2024 10:38:38 05/31/2024 11:22:31 care status 744863760 O36.5930 Z3A.38 [id number] Marcus Miranda MD [facility] [address] [address] 05/31/2024 10:39:06 05/31/2024 13:36:23 [id number] Z34.00 Health Concerns Section Related Observation LastModified by Organization Detai ls LastModified Time None Recorded Concern Status LastModified by Organization Details LastModified Time None Recorded Payers Encounter Date Sequence Insurance Name Policy Number Policy Hicks Covered Member ID Hicks Member ID Guarantor Name 05/31/2024 1 [facility] (MEDICAID HMO) [id number] Rosalia Ortiz [id number] Rosalia Ortiz OBGyn Episode Ob Episode Information Episode Created Date Number of Fetuses Patient Bloodtype Patient rh Status Prepregnancy Weight lbs Domestic Partner Domestic Partner Phone Father Name 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 further discussion indicated irregular periods . To use 9 week ultrasound and observe carefully. Growth ultrasound in 3 weeks GROWTH CONTINUES TO LAG USING [place] - continue growth ultrasounds 03/26/24 growth restriction 89851515 10th percentile , abdominal circumference 8th percentile, [...] Weight in lbs Pre/Post Dialysis Refused Weight 207.580382941022 BP Diastolic BP Location Tested BP Systolic [...] Type Weight in lbs Pre/Post Dialysis Refused 218.271265785054 BP Diastolic BP Location Tested BP Systolic [...] Type Weight in lbs Pre/Post Dialysis Refused 219.748785636864 BP Diastolic BP Location Tested BP Systolic [...] Type Weight in lbs Pre/Post Dialysis Refused 227.650116999157 BP Diastolic BP Location Tested BP Systolic [...] Type Weight in lbs Pre/Post Dialysis Refused 227.051526428256 BP Diastolic BP Location Tested BP Systolic [...] Type Weight in lbs Pre/Post Dialysis Refused 221.946991456313 BP Diastolic BP Location Tested BP Systolic [...] Type Weight in lbs Pre/Post Dialysis Refused 235.982315994927 BP Diastolic BP Location Tested BP Systolic [...] Weight in lbs Pre/Post Dialysis Refused Weight 231.183104218499 BP Diastolic BP Location Tested BP Systolic [...] Type Weight in lbs Pre/Post Dialysis Refused 243.820573031773 BP Diastolic BP Location Tested BP Systolic [...] Weight in lbs Pre/Post Dialysis Refused Weight 243.544695892884 BP Diastolic BP Location Tested BP Systolic BP Type 64 L arm 115 sitting Fetus Heart Rate Present Fetus Movement Comments Flowsheet Date 05/17/2024 Schmidt Score Blood Edema Fundus Height Fundus Units Glucose Ketones Leukocytes Nitrite Labor Signs Protein Cervic Dilation Cervic Effacement Cervic Station Type Weight in lbs Pre/Post Dialysis Refused Weight 237.4242787611 BP Diastolic BP Location Tested BP Systolic [...] Weight in lbs Pre/Post Dialysis Refused Weight 237.9495372786 BP Diastolic BP Location Tested BP Systolic [...] Weight in lbs Pre/Post Dialysis Refused Weight 238.199806034598 BP Diastolic BP Location Tested BP Systolic BP Type 76 L arm 126 sitting Fetus Heart Rate Present Fetus Movement Comments Flowsheet Date 05/24/2024 Schmidt Score Blood Edema Fundus Height Fundus Units Glucose Ketones Leukocytes Nitrite Labor Signs Protein Cervic Dilation Cervic Effacement Cervic Station Type Weight in lbs Pre/Post Dialysis Refused 238.102780055681 BP Diastolic BP Location Tested BP Systolic [...] Type Weight in lbs Pre/Post Dialysis Refused 239.489651351401 BP Diastolic BP Location Tested BP Systolic [...]
--- OUTSIDE RECORDS SUMMARY | 2024-06-01 17:19 | XMS_ITS | Data Portability ---
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 Lab CMP, serum or plasma 2023 024 [email or web address] [facility], [address] [facility] [employer], [address], [place], [address], 4 16:19:12 lactate dehydrog enase, QN, lactate to pyruvate reaction , serum or plasma 2023 024 [email or web address] [facility], [address] [facility] [employer], [address], [place], [address], 4 14:51:49 uric acid, serum or plasma 2023 024 [email or web address] [facility], [address] [facility], [address], [place], [address], 4 14:51:55 PT/INR 2023 024 [email or web address] [facility], [address] [facility], [address], [place], [address], 4 14:52:01 protein: creatini ne ratio, urine 2023 024 [email or web address] [facility], [address] [facility], [address], [place], [address], 4 14:52:07 molecula r diagnost ic overall interpre tation, QL, blood or tissue (OBS) 2023 024 effie MANZANARES, [facility] Sher, [address], [place], [address], 4 14:51:05 chromoso me 13+18+21 +X+Y aneuploi dy, blood 2023 024 [email or web address] MANZANARES, [address] [place], [place] [address]elsa Sher, [address], [place], [address], 4 14:51:30 panel 2023 024 SKYLA MANZANARES, [facility] yesy Sher, [address], [place], [address], 4 09:07:52 hemoglob in S (hbs), presence , blood 2023 024 SKYLA MANZANARES, [facility] Sher, [address], [place], [address], 4 09:07:55 varicell a zoster virus IgG Ab, QN, IA, serum 2023 024 SKYLA MANZANARES, [facility] [address], [address], [place], [address], 4 09:07:56 vaginal pathogen s panel, JUAN+prob e, vaginal fluid 2023 024 [facility], [address], [address], [place], [address], 4 06:17:21 drug screen, urine 2023 024 [facility], [address], [address], [place], [address], 4 09:07:54 lh + FSH, serum 2022 023 [facility], [address], [address], [place], [address], 3 04:09:33 CBC w/ auto diff 2022 023 [facility], [address], [address], [place], [address], 3 03:08:10 prolacti n, serum 2022 023 [facility], [address], [address], [place], [address], 3 04:09:32 CMP, serum or plasma 2022 023 [facility], [address], [address], [place], [address], 3 03:08:09 TSH, ultra-se nsitive, serum 2022 023 [facility], [address], [address], [place], [address], 3 04:09:31 progeste alvin, serum 2022 023 [facility], [address] [facility], [address], [place], [address], 3 04:09:32 chlamydi a trachoma tis + neisseri a gonorrho eae + trichomo dawna vaginali s DNA panel, JUAN+prob e, unspecif ied specimen 2022 023 [facility], [address] [facility], [address], [place], [address], 3 04:09:30 pregnanc y test, urine 2022 [facility]23 [email or web address] Order, Internal Use Only DO Not Attach Compendium DO Not Attach Compendium, Do Not Delete/merge, [id number] 3 12:10:47 chlamydi a trachoma tis + neisseri a gonorrho eae + trichomo dawna vaginali s DNA panel, JUAN+prob e, unspecif ied specimen 2022 023 [facility], [address] [facility], [address], [place], [address], 3 05:10:11 bacteria l vaginosi s score, JUAN+prob e, vaginal fluid (OBS) 2022 023 [facility], [address] [facility], [address], [place], [address], 3 16:08:[address] referral 2023 024 effie Desai MD, 4 [facility] , [address], [address], [place], [address], 4 14:51:20 Procedures None recorded . Surgeries None recorded . Imaging US, obstetri c, 1st trimeste r 2023 024 SKYLA m [facility], [address], [place], [address], 4 10:32:50 Medication Orders diphenhy dramine 25 mg capsule 2023 024 SKYLA [facility] [id number] [facility], [address] [place] [address], [address], 4 16:19:37 Plus (calcium carbonat e) 27 mg iron-1 mg tablet 2023 024 SKYLA [facility] [address] In [facility], [address] [place] [address], [address], 4 14:30:35 pyridoxi ne (vitamin B6) 25 mg tablet 2023 024 SKYLA [facility] [address] In [facility] [address] [place] [address], [place], [address], 4 14:29:33 Unisom (doxylam ine) 25 mg tablet 2023 024 SKYLA [facility] [address] In [facility], [address] [facility], [place], [address], 4 14:29:33 Xulane 150 mcg-35 mcg/24 hr transder mal patch 2022 023 [email or web address] [facility] [address] In [facility], [address] [facility], [place], [address], 4 10:04:35 medroxyp rogester one 150 mg/mL intramus cular suspensi on 2022 023 [facility], [address] [place] [address], [id number], 3 12:02:24 metronid azole 500 mg tablet 2022 023 [email or web address] [facility] [address] In [facility], [address], [place], [address], 12:55:24 Patient TargetsNo targets recorded. Patient Instructions Encounter Date Encounter Id Patient Instructions Last Modified By Organization Details Last Modified Time 06/18/2022 [id number] A healthy lifestyle: care instructions Not available 06/18/2022 11:05:50 JIMMY Crisostomo Discussed with Huma Peralta PA-C Not available 06/18/2022 11:11:02 10/10/2023 [id number] learning about sleeping well [email or web address] Not available 10/10/2023 11:54:30 On the date of this encounter, I saw and examined the patient, personally verifying the bejarano and critical findings in the resident s note. I reviewed and agree with the resident/fellow s findings and plan. ~MD Song [email or web address] Not available 10/18/2023 08:49:30 11/07/2023 [id number] learning about sleeping well [email or web address] Not available 11/07/2023 13:13:13 Attending Physician Attestation [...] e test positive Referring Physician: Jazzy Cummings, Service Station Cashier, Encounter Date: 10/10/2023 Results Created Date Observation Date Name Description Value Unit Range Abnormal Flag Note LastModifiedBy Organization Detail LastModifiedTime 05/13/1905/14/2022 RIVAS Arnett VG+, HSV atopobium vaginae Modera te - 1 score Not Available [facility] ([facility]) [address], [place], [address], 05/16/2022 16:08:15 05/13/1905/14/2022 NUSWA B VG+, HSV bvab 2 High - 2 score abnormal Not Available [facility] ([facility]) [address] [facility], [place], [address], 05/16/2022 16:08:15 05/13/19 23 05/14/2022 NUSWA B VG+, HSV megasphaera 1 High - [...] Drug Admin istra tion. Not Available [facility] ([facility]) [address] [facility], [place], [address], 05/16/2022 16:08:15 05/13/19 23 05/14/2022 NUA B VG+, HSV veronica albicans, JUAN Negati ve negati ve Not Available [facility] ([facility]) [address] [place], [address], 05/16/2022 16:08:15 05/13/19 23 05/14/2022 NUA B VG+, HSV veronica glabrata, JUAN Negati ve negati ve Not Available [facility] ([facility]) [address] [place], [address], 05/16/2022 16:08:15 05/13/19 23 05/14/2022 NUA B VG+, HSV trich vag by JUAN Negati ve negati ve Not Available [facility] ([facility]) [address] [facility] [place], [address], 05/16/2022 16:08:15 05/13/19 23 05/14/2022 NUSWA B VG+, HSV chlamydia trachomatis, JUAN Negati ve negati ve Not Available [facility] ([facility]) [address] [facility], [place], [address], 05/16/2022 16:08:15 05/13/19 23 05/14/2022 NUSWA B VG+, HSV neisseria gonorrhoeae, JUAN Negati ve negati ve Not Available [facility] ([facility]) [address] [place], [address], 05/16/2022 16:08:15 05/13/19 23 05/16/2022 NUSWA B VG+, HSV hsv 1 JUAN Negati ve negati ve Not Available [facility] ([facility]) [address] [place], [address], 05/16/2022 16:08:15 05/13/19 23 05/16/2022 NUSWA B VG+, HSV hsv 2 JUAN Negati ve negati ve Not Available [facility] ([facility]) [address] [place], [address], 05/16/2022 16:08:15 06/19/19 23 06/22/2022 CT, NG, TRICH VAG BY JUAN chlamydia by JUAN POSITI VE negati ve abnormal Not Available [facility] ([facility]) [address] [place], [address], 06/22/2022 05:10:11 06/19/19 23 06/22/2022 CT, NG, TRICH VAG BY JUAN gonococcus by JUAN NEGATI VE negati ve Not Available [facility] ([facility]) [address] [place], [address], 06/22/2022 05:10:11 06/19/19 23 06/22/2022 CT, NG, TRICH VAG BY JUAN trich vag by JUAN NEGATI VE negati ve Not Available [facility] ([facility]) [address] [facility], [place], [address], 06/22/2022 05:10:11 06/19/19 23 06/18/2022 pregn adriana test, urine HCG negati ve Not Available In-Office Order Internal Use Only DO Not Attach Compendium DO Not Attach Compendium, Do Not Delete/merge, [id number] 06/18/2022 11:04:47 12/25/19 23 12/24/2022 COMP. METAB OLIC PANEL (14) glucose 85 mg/dL 70-99 Not Available [facility] [address] [place] [address], [address], 12/25/2022 03:08:09 12/25/19 23 12/24/2022 COMP. METAB OLIC PANEL (14) BUN 11 mg/dL 6-20 Not Available [facility] [address] [place] [address], [address], 12/25/2022 03:08:09 12/25/19 23 12/24/2022 COMP. METAB OLIC PANEL (14) creatinine 0.73 mg/dL 0.76-1 .27 below low normal Not Available [facility] [address] [place] [address], [address], 12/25/2022 03:08:09 12/25/19 23 12/24/2022 COMP. METAB OLIC PANEL (14) eGFR 121 >=60 Units for eGFR value s are mL/mi n/1.7 3 The eGFR Calcu latio n has not been valid ated for patie nts under the age of 18. If test resul ts are displ ayed for a patie nt under the age of 18, disre mor that value . Not Available [facility] [address] [place] [address], [address], 12/25/2022 03:08:09 12/25/19 23 12/24/2022 COMP. METAB OLIC PANEL (14) BUN/creatini ne ratio 16 9-23 Not Available [facility] Department [address] [place], [address], 12/25/2022 03:08:09 12/25/19 23 12/24/2022 COMP. METAB OLIC PANEL (14) sodium 142 mmol/ L 134-14 4 Not Available [facility] [address] [place], [address], 12/25/2022 03:08:09 12/25/19 23 12/24/2022 COMP. METAB OLIC PANEL (14) potassium 4.4 mmol/ L 3.5-5. 2 Not Available [facility] [address] [place] [address], [address], 12/25/2022 03:08:09 12/25/19 23 12/24/2022 COMP. METAB OLIC PANEL (14) chloride 106 mmol/ L 96-106 Not Available [facility] [address] [place] [address], [address], 12/25/2022 03:08:09 12/25/19 23 12/24/2022 COMP. METAB OLIC PANEL (14) carbon dioxide, total 23 mmol/ L 20-29 Not Available [facility] [address] [place] [address], [address], 12/25/2022 03:08:09 12/25/19 23 12/24/2022 COMP. METAB OLIC PANEL (14) calcium 9.6 mg/dL 8.7-10 .2 Not Available [facility] [address] [place], [address], 12/25/2022 03:08:09 12/25/19 23 12/24/2022 COMP. METAB OLIC PANEL (14) protein, total 7.3 g/dL 6.0-8. 5 Not Available [facility] [address] [place] [address], [address], 12/25/2022 03:08:09 12/25/19 23 12/24/2022 COMP. METAB OLIC PANEL (14) albumin 4.6 g/dL 4.0-5. 0 Not Available [facility] [address] [place] [address], [address], 12/25/2022 03:08:09 12/25/19 23 12/24/2022 COMP. METAB OLIC PANEL (14) globulin, total 2.7 g/dL 1.5-4. 5 Not Available [facility] [address] [place] [address], [address], 12/25/2022 03:08:09 12/25/19 23 12/24/2022 COMP. METAB OLIC PANEL (14) A/G ratio 2.0 1.2-2. 2 Not Available [facility] [address] [place] [address], [address], 12/25/2022 03:08:09 12/25/19 23 12/24/2022 COMP. METAB OLIC PANEL (14) bilirubin, total 0.4 mg/dL 0.0-1. 2 Not Available [facility] [address] [place] [address], [address], 12/25/2022 03:08:09 12/25/19 23 12/24/2022 COMP. METAB OLIC PANEL (14) alkaline phosphatase 61 IU/L 42-106 Not Available [facility] Department [address] [place], [address], 12/25/2022 03:08:09 12/25/19 23 12/24/2022 COMP. METAB OLIC PANEL (14) AST (SGOT) 17 IU/L 0-40 Not Available [facility] Department [address] [place], [address], 12/25/2022 03:08:09 12/25/19 23 12/24/2022 COMP. METAB OLIC PANEL (14) ALT (SGPT) 19 IU/L 0-32 Not Available [facility] Department [address] [place], [address], 12/25/2022 03:08:09 12/25/1912/24/2022 CBC WITH DIFFE RENTI AL/PL ATELE T WBC 4.1 x10e3 /uL 3.4-10 .8 Not Available [facility] [address] [place], [address], 12/25/2022 03:08:10 12/25/1912/24/2022 CBC WITH DIFFE RENTI AL/PL ATELE T RBC 3.74 x10e6 /uL 3.77-5 .28 below low normal Not Available [facility] [address] [facility], [place], [address], 12/25/2022 03:08:10 12/25/1912/24/2022 CBC WITH DIFFE RENTI AL/PL ATELE T hemoglobin 12.2 g/dL 11.1-1 5.9 Not Available [facility] [address] [place], [address], 12/25/2022 03:08:10 12/25/1912/24/2022 CBC WITH DIFFE RENTI AL/PL ATELE T hematocrit 36.4 % 34.0-4 6.6 Not Available [facility] [address] [place], [address], 12/25/2022 03:08:10 12/25/1912/24/2022 CBC WITH DIFFE RENTI AL/PL ATELE T MCV 97 fL 79-97 Not Available [facility] [address] [place], [address], 12/25/2022 03:08:10 12/25/1912/24/2022 CBC WITH DIFFE RENTI AL/PL ATELE T MCH 32.6 pg 26.6-3 3.0 Not Available [facility] [address] [place], [address], 12/25/2022 03:08:10 12/25/19 23 12/24/2022 CBC WITH DIFFE RENTI AL/PL ATELE T MCHC 33.5 g/dL 31.5-3 5.7 Not Available [facility] Department [address] [place], [address], 12/25/2022 03:08:10 12/25/19 23 12/24/2022 CBC WITH DIFFE RENTI AL/PL ATELE T RDW 12.6 % 11.5-1 4.5 Not Available [facility] [address] [place], [address], 12/25/2022 03:08:10 12/25/19 23 12/24/2022 CBC WITH DIFFE RENTI AL/PL ATELE T platelets 374 x10e3 /uL 150-45 0 Not Available [facility] [address] [place], [address], 12/25/2022 03:08:10 12/25/19 23 12/24/2022 CBC WITH DIFFE RENTI AL/PL ATELE T neutrophils 38 % notest b. Not Available [facility] [address] [place], [address], 12/25/2022 03:08:10 12/25/19 23 12/24/2022 CBC WITH DIFFE RENTI AL/PL ATELE T lymphs 49 % notest b. Not Available [facility] [address] [place], [address], 12/25/2022 03:08:10 12/25/19 23 12/24/2022 CBC WITH DIFFE RENTI AL/PL ATELE T monocytes 9 % notest b. Not Available [facility] [address] [place], [address], 12/25/2022 03:08:10 12/25/19 23 12/24/2022 CBC WITH DIFFE RENTI AL/PL ATELE T eos 4 % notest b. Not Available [facility] [address] [place], [address], 12/25/2022 03:08:10 12/25/19 23 12/24/2022 CBC WITH DIFFE RENTI AL/PL ATELE T basos 1 % notest b. Not Available [facility] [address] [place], [address], 12/25/2022 03:08:10 12/25/19 23 12/24/2022 CBC WITH DIFFE RENTI AL/PL ATELE T neutrophils (absolute) 1.5 x10e3 /uL 1.4-7. 0 Not Available [facility] Department [address] [place], [address], 12/25/2022 03:08:10 12/25/19 23 12/24/2022 CBC WITH DIFFE RENTI AL/PL ATELE T lymphs (absolute) 2.0 x10e3 /uL 0.7-3. 1 Not Available [facility] Department [address] [place], [address], 12/25/2022 03:08:10 12/25/19 23 12/24/2022 CBC WITH DIFFE RENTI AL/PL ATELE T monocytes(ab solute) 0.4 x10e3 /uL 0.1-0. 9 Not Available [facility] [address] [place], [address], 12/25/2022 03:08:10 12/25/19 23 12/24/2022 CBC WITH DIFFE RENTI AL/PL ATELE T eos (absolute) 0.2 x10e3 /uL 0.0-0. 4 Not Available [facility] [address] [place], [address], 12/25/2022 03:08:10 12/25/19 23 12/24/2022 CBC WITH DIFFE RENTI AL/PL ATELE T baso (absolute) 0.0 x10e3 /uL 0.0-0. 2 Not Available [facility] [address] [place], [address], 12/25/2022 03:08:10 12/25/19 23 12/24/2022 CBC WITH DIFFE RENTI AL/PL ATELE T immature granulocytes 0 % notest b. Not Available [facility] [address] [place], [address], 12/25/2022 03:08:10 12/25/19 23 12/24/2022 CBC WITH DIFFE RENTI AL/PL ATELE T immature grans (abs) 0.0 x10e3 /uL 0.0-0. 1 Not Available [facility] [address] [place], [address], 12/25/2022 03:08:10 12/25/19 23 12/24/2022 CBC WITH DIFFE RENTI AL/PL ATELE T NRBC 0 % 0-0 Not Available [facility] [address] [place], [address], 12/25/2022 03:08:10 12/25/1912/27/2022 CT, NG, TRICH VAG BY JUAN chlamydia by JUAN Negati ve negati ve Not Available [facility] ([facility]) [address] [place], [address], 12/28/2022 04:09:30 12/25/1912/27/2022 CT, NG, TRICH VAG BY JUAN gonococcus by JUAN Negati ve negati ve Not Available [facility] ([facility]) [address] [place], [address], 12/28/2022 04:09:30 12/25/1912/27/2022 CT, NG, TRICH VAG BY JUAN trich vag by JUAN Positi ve negati ve abnormal Not Available [facility] ([facility]) [address] [place], [address], 12/28/2022 04:09:30 12/25/19 23 12/25/2022 TSH RFX ON ABNOR MAL TO FREE T4 TSH 1.170 uIU/m L 0.450- 4.500 Not Available [facility] ([facility]) [address] [place], [address], 12/28/2022 04:09:31 12/25/19 23 12/25/2022 PROGE STERO NE progesterone 0.4 NG/mL Folli cular phase 0.1 - 0.9 Lutea l phase 1.8 - 23.9 Ovula tion phase 0.1 - 12.0 Pregn ant First trime ster 11.0 - 44.3 Secon d trime ster 25.4 - 83.3 Third trime ster 58.7 - 214.0 Postm enopa usal 0.0 - 0.1 Not Available [facility] ([facility]) [address] [place], [address], 12/28/2022 04:09:32 12/25/19 23 12/25/2022 PROLA CTIN prolactin 11.5 NG/mL 4.8-23 .3 Not Available [facility] ([facility]) [address] [place], [address], 12/28/2022 04:09:32 12/25/19 23 12/25/2022 FSH AND LH LH 7.1 mIU/m L Adult Femal e Range Folli cular phase 2.4 - 12.6 Ovula tion phase 14.0 - 95.6 Lutea l phase 1.0 - 11.4 Postm enopa usal 7.7 - 58.5 Not Available [facility] ([facility]) [address] [place], [address], 12/28/2022 04:09:33 12/25/19 23 12/25/2022 FSH AND LH FSH 6.9 mIU/m L Adult Femal e Range Folli cular phase 3.5 - 12.5 Ovula tion phase 4.7 - 21.5 Lutea l phase 1.7 - 7.7 Postm enopa usal 25.8 - 134.8 Not Available [facility] ([facility]) [address] [place], [address], 12/28/2022 04:09:33 10/10/19 24 10/11/2023 NUSWA B VG+, YUE DA 6SP atopobium vaginae HIGH - 2 score abnormal Not Available [facility] ([facility]) [address] [place], [address], 10/12/2023 06:17:21 10/10/1910/11/2023 NUSWA B VG+, YUE DA 6SP bvab 2 HIGH - 2 score abnormal Not Available [facility] ([facility]) [address] [facility], [place], [address], 10/12/2023 06:17:21 10/10/19 24 10/11/2023 NUSWA B [...] prese nce of BV. Not Available [facility] ([facility]) [address] [place], [address], 10/12/2023 06:17:21 10/10/1910/11/2023 NUSWA B VG+, YUE DA 6SP veronica albicans, JUAN NEGATI VE negati ve Not Available [facility] ([facility]) [address] [place], [address], 10/12/2023 06:17:21 10/10/19 24 10/11/2023 NUA B VG+, YUE DA 6SP veronica glabrata, JUAN NEGATI VE negati ve Not Available [facility] ([facility]) [address] [place], [address], 10/12/2023 06:17:21 10/10/19 24 10/12/2023 NUA B VG+, YUE DA 6SP C parapsilosis /tropicalis N negati ve This assay does not diffe renti ate C. tropi calis and C. parap riaz is. Not Available [facility] ([facility]) [address] [facility], [place], [address], 10/12/2023 06:17:21 10/10/19 24 10/12/2023 NUA B VG+, YUE DA 6SP veronica lusitaniae, JUAN N Not Available [facility]) [address] [place], [address], 10/12/2023 06:17:21 10/10/1910/12/2023 NUA B VG+, YUE DA 6SP veronica krusei, JUAN N Not Available [facility]) [address] [place], [address], 10/12/2023 06:17:21 10/10/19 24 10/12/2023 NUA B VG+, YUE DA 6SP trich vag by JUAN NEGATI VE negati ve Not Available [facility] ([facility]) [address] [place], [address], 10/12/2023 06:17:21 10/10/19 24 10/12/2023 NUA B VG+, YUE DA 6SP chlamydia trachomatis, JUAN NEGATI VE negati ve Not Available [facility] ([facility]) [address] [place], [address], 10/12/2023 06:17:21 10/10/19 24 10/12/2023 NUSWA B VG+, YUE DA 6SP neisseria gonorrhoeae, JUAN NEGATI VE negati ve Not Available [facility] ([facility]) [address] [facility], [place], [address], 10/12/2023 06:17:21 10/10/19 24 10/11/2023 INTER PRETA TION: interpretati on: Commen t Not infec ashley with HCV unles s early or acute infec tion is suspe cted (whic h may be delay ed in an immun ocomp romis ed indiv idual ), or other evide nce exist s to indic ate HCV infec tion. Not Available [facility] ([facility]) [address] [facility], [place], [address], 10/17/2023 09:07:52 10/10/19 24 10/11/2023 PREGN ADRIANA, INITI AL SCREE N HBsAg screen NEGATI VE negati ve Not Available [facility] ([facility]) [address] [facility], [place], [address], 10/17/2023 09:07:52 10/10/19 24 10/11/2023 PREGN ADRIANA, INITI AL SCREE N HCV Ab NON REACTI VE nonrea ctive Not Available [facility] ([facility]) [address] [place], [address], 10/17/2023 09:07:52 10/10/19 24 10/11/2023 PREGN ADRIANA, INITI AL SCREE N RPR NON REACTI VE nonrea ctive Not Available [facility] ([facility]) [address] [place], [address], 10/17/2023 09:07:52 10/10/19 24 10/11/2023 PREGN ADRIANA, INITI AL SCREE N rubella antibodies, IgG 11.20 index immune >0.99 Non-i mmune <0.90 Equiv ocal 0.90 - 0.99 Immun e >0.99 Not Available [facility] ([facility]) [address] [facility], [place], [address], 10/17/2023 09:07:52 10/10/19 24 10/11/2023 PREGN ADRIANA, INITI AL SCREE N ABO grouping B Not Available [facility]) [address] [facility], [place], [address], 10/17/2023 09:07:52 10/10/19 24 10/11/2023 PREGN ADRIANA, INITI AL SCREE N Rh factor POSITI VE Pleas e note: Prior recor ds for this patie nt's ABO / Rh type are not avail able for addit ional verif icati on. Not Available [facility] ([facility]) [address] [facility], [place], [address], 10/17/2023 09:07:52 10/10/19 24 10/11/2023 PREGN ADRIANA, INITI AL SCREE N antibody screen NEGATI VE negati ve Not Available [facility] ([facility]) [address] [facility], [place], [address], 10/17/2023 09:07:52 10/10/19 24 10/11/2023 PREGN ADRIANA, INITI AL SCREE N HIV Ab/P24 Ag screen NON REACTI VE nonrea ctive HIV-1 /HIV- 2 antib odies and HIV-1 p24 antig en were NOT detec ashley. There is no labor atory evide nce of HIV infec tion. HIV Negat mounika Not Available [facility] ([facility]) [address] [facility], [place], [address], 10/17/2023 09:07:52 10/10/19 24 10/11/2023 PREGN ADRIANA, INITI AL SCREE N WBC 4.6 x10e3 /uL 3.4-10 .8 Not Available [facility] ([facility]) [address] [facility], [place], [address], 10/17/2023 09:07:52 10/10/19 24 10/11/2023 PREGN ADRIANA, INITI AL SCREE N RBC 3.82 x10e6 /uL 3.77-5 .28 Not Available [facility] ([facility]) [address] [facility], [place], [address], 10/17/2023 09:07:52 10/10/19 24 10/11/2023 PREGN ADRIANA, INITI AL SCREE N hemoglobin 12.5 g/dL 11.1-1 5.9 Not Available [facility] [facility]) [address] [facility], [place], [address], 10/17/2023 09:07:52 10/10/19 24 10/11/2023 PREGN ADRIANA, INITI AL SCREE N hematocrit 38.5 % 34.0-4 6.6 Not Available [facility] ([facility]) [address] [facility], [place], [address], 10/17/2023 09:07:52 10/10/1910/11/2023 PREGN ADRIANA, INITI AL SCREE N MCV 101 fL 79-97 above high normal Not Available [facility] ([facility]) [address] [place], [address], 10/17/2023 09:07:52 10/10/19 24 10/11/2023 PREGN ADRIANA, INITI AL SCREE N MCH 32.7 pg 26.6-3 3.0 Not Available [facility] ([facility]) [address] [place], [address], 10/17/2023 09:07:52 10/10/19 24 10/11/2023 PREGN ADRIANA, INITI AL SCREE N MCHC 32.5 g/dL 31.5-3 5.7 Not Available [facility] ([facility]) [address] [place], [address], 10/17/2023 09:07:52 10/10/19 24 10/11/2023 PREGN ADRIANA, INITI AL SCREE N RDW 12.6 % 11.7-1 5.4 Not Available [facility] ([facility]) [address] [facility], [place], [address], 10/17/2023 09:07:52 10/10/19 24 10/11/2023 PREGN ADRIANA, INITI AL SCREE N platelets 337 x10e3 /uL 150-45 0 Not Available [facility] ([facility]) [address] [facility], [place], [address], 10/17/2023 09:07:52 10/10/19 24 10/11/2023 PREGN ADRIANA, INITI AL SCREE N neutrophils 42 % notest ab. Not Available [facility] ([facility]) [address] [facility], [place], [address], 10/17/2023 09:07:52 10/10/19 24 10/11/2023 PREGN ADRIANA, INITI AL SCREE N lymphs 47 % notest ab. Not Available [facility] ([facility]) [address] [facility], [place], [address], 10/17/2023 09:07:52 10/10/19 24 10/11/2023 PREGN ADRIANA, INITI AL SCREE N monocytes 9 % notest ab. Not Available [facility] ([facility]) [address] [facility], [place], [address], 10/17/2023 09:07:52 10/10/19 24 10/11/2023 PREGN ADRIANA, INITI AL SCREE N eos 1 % notest ab. Not Available [facility] ([facility]) [address] [facility], [place], [address], 10/17/2023 09:07:52 10/10/19 24 10/11/2023 PREGN ADRIANA, INITI AL SCREE N basos 1 % notest ab. Not Available [facility] ([facility]) [address] [facility], [place], [address], 10/17/2023 09:07:52 10/10/19 24 10/11/2023 PREGN ADRIANA, INITI AL SCREE N neutrophils (absolute) 1.9 x10e3 /uL 1.4-7. 0 Not Available [facility] ([facility]) [address] [facility], [place], [address], 10/17/2023 09:07:52 10/10/19 24 10/11/2023 PREGN ADRIANA, INITI AL SCREE N lymphs (absolute) 2.1 x10e3 /uL 0.7-3. 1 Not Available [facility] ([facility]) [address] [facility], [place], [address], 10/17/2023 09:07:52 10/10/19 24 10/11/2023 PREGN ADRIANA, INITI AL SCREE N monocytes(ab solute) 0.4 x10e3 /uL 0.1-0. 9 Not Available [facility] ([facility]) [address] [facility], [place], [address], 10/17/2023 09:07:52 10/10/19 24 10/11/2023 PREGN ADRIANA, INITI AL SCREE N eos (absolute) 0.1 x10e3 /uL 0.0-0. 4 Not Available [facility] ([facility]) [address] [facility], [place], [address], 10/17/2023 09:07:52 10/10/19 24 10/11/2023 PREGN ADRIANA, INITI AL SCREE N baso (absolute) 0.0 x10e3 /uL 0.0-0. 2 Not Available [facility] ([facility]) [address] [facility], [place], [address], 10/17/2023 09:07:52 10/10/19 24 10/11/2023 PREGN ADRIANA, INITI AL SCREE N immature granulocytes 0 % notest ab. Not Available [facility] ([facility]) [address] [facility], [place], [address], 10/17/2023 09:07:52 10/10/1910/11/2023 PREGN ADRIANA, INITI AL SCREE N immature grans (abs) 0.0 x10e3 /uL 0.0-0. 1 Not Available [facility] ([facility]) [address] [facility], [place], [address], 10/17/2023 09:07:52 10/10/19 24 10/11/2023 PREGN ADRIANA, INITI AL SCREE N specific gravity 1.025 1.005- 1.030 Not Available [facility] ([facility]) [address] [facility], [place], [address], 10/17/2023 09:07:52 10/10/1910/11/2023 PREGN ADRIANA, INITI AL SCREE N pH 6.5 5.0-7. 5 Not Available [facility] ([facility]) [address] [facility], [place], [address], 10/17/2023 09:07:52 10/10/19 24 10/11/2023 PREGN ADRIANA, INITI AL SCREE N urine-color YELLOW yellow Not Available [facility] ([facility]) [address] [facility], [place], [address], 10/17/2023 09:07:52 10/10/19 24 10/11/2023 PREGN ADRIANA, INITI AL SCREE N appearance CLOUDY clear abnormal Not Available [facility] ([facility]) [address] [facility], [place], [address], 10/17/2023 09:07:52 10/10/1910/11/2023 PREGN ADRIANA, INITI AL SCREE N WBC esterase NEGATI VE negati ve Not Available [facility] ([facility]) [address] [place], [address], 10/17/2023 09:07:52 10/10/19 24 10/11/2023 PREGN ADRIANA, INITI AL SCREE N protein TRACE negati ve/tra ce Not Available [facility] ([facility]) [address] [place], [address], 10/17/2023 09:07:52 10/10/19 24 10/11/2023 PREGN ADRIANA, INITI AL SCREE N glucose NEGATI VE negati ve Not Available [facility] ([facility]) [address] [place], [address], 10/17/2023 09:07:52 10/10/19 24 10/11/2023 PREGN ADRIANA, INITI AL SCREE N ketones TRACE negati ve abnormal Not Available [facility] ([facility]) [address] [place], [address], 10/17/2023 09:07:52 10/10/19 24 10/11/2023 PREGN ADRIANA, INITI AL SCREE N occult blood NEGATI VE negati ve Not Available [facility] ([facility]) [address] [place], [address], 10/17/2023 09:07:52 10/10/19 24 10/11/2023 PREGN ADRIANA, INITI AL SCREE N bilirubin NEGATI VE negati ve Not Available [facility] ([facility]) [address] [place], [address], 10/17/2023 09:07:52 10/10/19 24 10/11/2023 PREGN ADRIANA, INITI AL SCREE N urobilinogen ,semi-qn 0.2 mg/dL 0.2-1. 0 Not Available [facility] ([facility]) [address] [place], [address], 10/17/2023 09:07:52 10/10/19 24 10/11/2023 PREGN ADRIANA, INITI AL SCREE N nitrite, urine NEGATI VE negati ve Not Available [facility] ([facility]) [address] [facility], [place], [address], 10/17/2023 09:07:52 10/10/19 24 10/11/2023 PREGN ADRIANA, INITI AL SCREE N microscopic examination COMMEN T Micro scopi c follo ws if indic ated. Not Available [facility] ([facility]) [address] [facility], [place], [address], 10/17/2023 09:07:52 10/10/19 24 10/11/2023 PREGN ADRIANA, INITI AL SCREE N microscopic examination SEE BELOW: Micro scopi c was indic ated and was perfo rmed. Not Available [facility] ([facility]) [address] [facility], [place], [address], 10/17/2023 09:07:52 10/10/19 24 10/12/2023 PREGN ADRIANA, INITI AL SCREE N chlamydia trachomatis, JUAN NEGATI VE negati ve Not Available [facility] ([facility]) [address] [facility], [place], [address], 10/17/2023 09:07:52 10/10/19 24 10/12/2023 PREGN ADRIANA, INITI AL SCREE N neisseria gonorrhoeae, JUAN NEGATI VE negati ve Not Available [facility] ([facility]) [address] [facility], [place], [address], 10/17/2023 09:07:52 10/10/19 24 10/12/2023 PREGN ADRIANA, INITI AL SCREE N urine culture,pren atal, w/gbs FINAL REPORT Not Available [facility] ([facility]) [address] [place], [address], 10/17/2023 09:07:52 10/10/19 24 10/11/2023 MICRO SCOPI C EXAMI NATIO N WBC 0-5 /hpf 0-5 Not Available [facility] ([facility]) [address] [facility] [place], [address], 10/17/2023 09:07:53 10/10/19 24 10/11/2023 MICRO SCOPI C EXAMI NATIO N RBC 0-2 /hpf 0-2 Not Available [facility] ([facility]) [address] [facility], [place], [address], 10/17/2023 09:07:53 10/10/19 24 10/11/2023 MICRO SCOPI C EXAMI NATIO N epithelial cells (non renal) >10 /hpf 0-10 abnormal Not Available [facility] ([facility]) [address] [facility], [place], [address], 10/17/2023 09:07:53 10/10/19 24 10/11/2023 MICRO SCOPI C EXAMI NATIO N casts None seen /lpf nonese en Not Available [facility] ([facility]) [address] [facility], [place], [address], 10/17/2023 09:07:53 10/10/19 24 10/11/2023 MICRO SCOPI C EXAMI NATIO N mucus threads Presen t notest ab. Not Available [facility] ([facility]) [address] [facility], [place], [address], 10/17/2023 09:07:53 10/10/19 24 10/11/2023 MICRO SCOPI C EXAMI NATIO N bacteria Modera te nonese en/few abnormal Not Available [facility] ([facility]) [address] [facility], [place], [address], 10/17/2023 09:07:53 10/10/19 24 10/17/2023 COTIN INE CONF, MS, UR cotinine Positi ve cutoff =500 abnormal Cotin ine level equal to or great er than 500 ng/mL is consi stent with the use of tobac co or tobac co cessa tion produ ct. Not Available [facility] ([facility]) [address] [place], [address], 10/17/2023 09:07:54 10/10/19 24 10/17/2023 COTIN INE CONF, MS, UR cotinine conf, MS, ur 2296 NG/mL cutoff =500 Not Available [facility] ([facility]) [address] [place], [address], 10/17/2023 09:07:54 10/10/19 24 10/11/2023 PREGN ADRIANA DRUG PROFI LE, UR, 16 amphetamines screen, urine NEGATI VE NG/mL cutoff =500 Amphe tamin e test inclu elmo Amphe tamin e and Metha mphet amine . Not Available [facility] ([facility]) [address] [place], [address], 10/17/2023 09:07:54 10/10/19 24 10/11/2023 PREGN ADRIANA DRUG PROFI LE, UR, 16 barbiturates NEGATI VE NG/mL cutoff =200 Not Available [facility] ([facility]) [address] [place], [address], 10/17/2023 09:07:54 10/10/19 24 10/11/2023 PREGN ADRIANA DRUG PROFI LE, UR, 16 benzodiazepi isai NEGATI VE NG/mL cutoff =200 Not Available [facility] ([facility]) [address] [place], [address], 10/17/2023 09:07:54 10/10/19 24 10/11/2023 PREGN ADRIANA DRUG PROFI LE, UR, 16 cannabinoid SEE FINAL RESULT S Not Available [facility] ([facility]) [address] [place], [address], 10/17/2023 09:07:54 10/10/19 24 10/11/2023 PREGN ADRIANA DRUG PROFI LE, UR, 16 cocaine (metab.), urine NEGATI VE NG/mL cutoff =150 Not Available [facility] ([facility]) [address] [place], [address], 10/17/2023 09:07:54 10/10/19 24 10/11/2023 PREGN ADRIANA DRUG PROFI LE, UR, 16 opiates NEGATI VE NG/mL cutoff =300 Opiat e test inclu elmo Codei ne, Morph ine, [place] morph one, [place] codon e. Not Available [facility] ([facility]) [address] [place], [address], 10/17/2023 09:07:54 10/10/19 24 10/11/2023 PREGN ADRIANA DRUG PROFI LE, UR, 16 oxycodone/ox ymorphone, urine NEGATI VE NG/mL cutoff =300 Test inclu elmo Oxyco done and Oxymo rphon e Not Available [facility] ([facility]) [address] [place], [address], 10/17/2023 09:07:54 10/10/19 24 10/11/2023 PREGN ADRIANA DRUG PROFI LE, UR, 16 pcp, urine NEGATI VE NG/mL cutoff =25 Not Available [facility] ([facility]) [address] [place], [address], 10/17/2023 09:07:54 10/10/19 24 10/11/2023 PREGN ADRIANA DRUG PROFI LE, UR, 16 methadone screen, urine NEGATI VE NG/mL cutoff =300 Not Available [facility] ([facility]) [address] [place], [address], 10/17/2023 09:07:54 10/10/19 24 10/11/2023 PREGN ADRIANA DRUG PROFI LE, UR, 16 propoxyphene , urine NEGATI VE NG/mL cutoff =300 Not Available [facility] ([facility]) [address] [place], [address], 10/17/2023 09:07:54 10/10/19 24 10/11/2023 PREGN ADRIANA [...] Drug Admin istra tion. Not Available [facility] ([facility]) [address] [place], [address], 10/17/2023 09:07:54 10/10/19 24 10/11/2023 PREGN ADRIANA DRUG PROFI LE, UR, 16 tapentadol, urine NEGATI VE NG/mL cutoff =200 This test was devel oped and its perfo rmanc e tre cteri stics deter mined by [facility]. It has not been clear ed or appro amira by the Food and Drug Admin istra tion. Not Available [facility] ([facility]) [address] [place], [address], 10/17/2023 09:07:54 10/10/19 24 10/11/2023 PREGN ADRIANA DRUG PROFI LE, UR, 16 tramadol NEGATI VE NG/mL cutoff =200 Not Available [facility] ([facility]) [address] [place], [address], 10/17/2023 09:07:54 10/10/19 24 10/11/2023 PREGN ADRIANA DRUG PROFI LE, UR, 16 ethyl glucuronide screen, ur NEGATI VE NG/mL cutoff =500 This test was devel oped and its perfo rmanc e tre cteri stics deter mined by [facility]. It has not been clear ed or appro amira by the Food and Drug Admin istra tion. Not Available [facility] ([facility]) [address] [place], [address], 10/17/2023 09:07:54 10/10/19 24 10/11/2023 PREGN ADRIANA DRUG PROFI LE, UR, 16 buprenorphin e, urine NEGATI VE NG/mL cutoff =10 Not Available [facility] ([facility]) [address] [place], [address], 10/17/2023 09:07:54 10/10/19 24 10/11/2023 PREGN ADRIANA DRUG PROFI LE, UR, 16 cotinine SEE FINAL RESULT S Not Available [facility] ([facility]) [address] [place], [address], 10/17/2023 09:07:54 10/10/19 24 10/11/2023 PREGN ADRIANA DRUG PROFI LE, UR, 16 creatinine, urine 305.3 mg/dL 20.0-3 00.0 above high normal Not Available [facility] ([facility]) [address] [place], [address], 10/17/2023 09:07:54 10/10/19 24 10/11/2023 PREGN ADRIANA DRUG PROFI LE, UR, 16 pH, urine 6.1 4.5-8. 9 Not Available [facility] ([facility]) [address] [place], [address], 10/17/2023 09:07:54 10/10/19 24 10/17/2023 PREGN ADRIANA DRUG PROFI LE, UR, 16 cannabinoid POSITI VE cutoff =50 abnormal Not Available [facility] ([facility]) [address] [place], [address], 10/17/2023 09:07:54 10/10/19 24 10/17/2023 PREGN ADRIANA DRUG PROFI LE, UR, 16 carboxy THC conf, MS, ur 3100 NG/mL cutoff =15 Not Available [facility] ([facility]) [address] [place], [address], 10/17/2023 09:07:54 10/10/19 24 10/11/2023 HB SOLU + RFLX FRAC hemoglobin (HGB) solubility NEGATI VE negati ve Not Available [facility] ([facility]) [address] [facility], [place], [address], 10/17/2023 09:07:55 10/10/19 24 10/12/2023 RESUL T result 1 Commen t Mixed uroge nital amira 25,00 0-50, 000 colon y formi ng units per mL Not Available [facility] ([facility]) [address] [facility], [place], [address], 10/17/2023 09:07:55 10/10/19 24 10/11/2023 VARIC YANCI- ZOSTE R V AB, IGG varicella zoster IgG <135 index immune >165 below low normal Negat mounika <135 Equiv ocal 135 - 165 Posit mounika >165 A posit mounika resul t gener ally indic ates expos ure to the patho gen or admin istra tion of speci fic immun oglob ulins , but it is not indic ation of activ e infec tion or stage of disea se. Not Available [facility] ([facility]) [address] [facility], [place], [address], 10/17/2023 09:07:56 07/20/19 23 07/19/2022 XR, shoul tevin, 2 or more view No observ ation record ed. [address] [facility], [place], [address], 07/23/2022 16:30:20 06/21/19 24 06/21/2023 XR, knee No observ ation record ed. [facility] [address] [facility] [address], [place], [address], 06/21/2023 11:50:33 11/21/19 24 11/21/2023 US, obste tric, 1st trime ster No observ ation record ed. SKYLA Carreno [facility] [address], [place], [address], 11/23/2023 12:25:34 Result Notes None recorded. 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 Jazzy Cummings MD Attn: Jesus bergeron,[address] [facility], [place], [address], [place] [facility] 4 09:03:47 Gonorrhe a 79696869 Completed 202010/12/2023 Jazzy Cummings MD Attn: Jesus bergeron,[address] [facility], [place], [address], [place] [facility] 4 09:03:35 Bacteria l vaginosi s 155356978 Completed 202010/12/2023 Jazzy Cummings MD Attn: Jesus bergeron,[address] [facility], [place], [address], [place] [facility] 4 09:03:31 Pregnanc y 49631286 Active 2023 Jazzy Cummings MD Attn: Jesus bergeron,[address] [facility], [place], [address], [place] [facility] 4 09:45:05 Bacteria l vaginosi s in pregnanc y 34230889808 9109 Active 2023 Initial labs, treated with yl Jazzy Cummings MD Attn: Jesus bergeron,[address] [facility], [place], [address], [place] [facility] 4 00:12:51 Bacteria l vaginosi s in pregnanc y 80928821847 9109 Active 2023 Initial labs, treated with lin Cummings MD Attn: Jesus bergeron,[address] [facility], [place], [address], [place] [facility] 4 00:12:51 Elevated blood-pr essure reading without diagnosi s of hyperten rita 064047291 Active 2023 Baseline preeclam psia labs Jazzy Cummings MD Attn: Jesus bergeron,[address] [facility], [place], [address], [place] [facility] 4 16:52:39 Elevated blood-pr essure reading without diagnosi s of hyperten rita 514930912 Active 2023 Baseline preeclam psia labs Jazzy Cummings MD Attn: Accountin g,[address], [place], [address], [place] [facility] 4 16:52:39 Nausea and vomiting in pregnanc y Active 2023 Refracto ry to unisom and B6, trial benadryl Jazzy Cummings MD Attn: Accountin g,[address], [place], [address], [place] [facility] 4 16:52:09 Nausea and vomiting in pregnanc y Active 2023 Refracto ry to unisom and B6, trial benadryl Jazzy Cummings MD Attn: Accountin g,[address], [place], [address], [place] [facility] 4 16:52:09 Marijuan a user 833313551 Active 2023 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 Patient had been self-med icating for nausea. Jazzy Cummings MD Attn: Jesus bergeron,[address], [place], [address], [place] [facility] 4 00:13:29 Marijuan a user 187305398 Active 2023 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 Patient had been self-med icating for nausea. Jazzy Cummings MD Attn: Jesus g,[address], [place], [address], [place] [facility] 4 00:13:29 Insomnia 073770916 Active 2023 Refracto ry to unisom, trial benadryl Jazzy Cummings MD Attn: Jesus g,[address] [facility], [place], [address], [place] [facility] 4 16:51:49 Insomnia 317142809 Active 2023 Refracto ry to unisom, trial benadryl Jazzy Cummings MD Attn: Jesus elyssa,[address] [facility], [place], [address], [place] [facility] 4 16:51:49 Maternal obesity complica ting pregnanc y, childbir th and the puerperi , antepart 98665505730 7 Active 2023 BMI 33.1, consider ASA for preeclam psia prophyla xis Jazzy Cummings MD Attn: Jesus elyssa,[address] [facility], [place], [address], [place] [facility] 4 00:12:39 Urine pregnanc y test positive 923289663 Active 2023 Jazzy Cummings MD Attn: Jesus elyssa,[address] [facility], [place], [address], [place] [facility] 4 00:10:59 Urine pregnanc y test positive 872932319 Active 2023 Jazzy Cummings MD Attn: Jesus elyssa,[address] [facility], [place], [address], [place] [facility] 4 00:10:59 Maternal obesity complica ting pregnanc y, childbir th and the puerperi , [facility] 580[facility] 7 Active 2023 BMI 33.1, consider ASA for preeclam psia prophyla xis Jazzy Cummings MD Attn: Jesus bergeron,[address] [facility], [place], [address], [place] [facility] 4 00:12:39 Routine antenata l care Active 2023 Jazzy Cummings MD Attn: Jesus g,[address] [facility], [place], [address], [place] [facility] 4 16:41:56 Routine antenata l care Active 2023 Jazzy Cummings MD Attn: Accountmichael bergeron,[address] [facility], [place], [address], [place] [facility] 4 16:41:56 Mild persiste nt asthma 281504060 Completed 06/09/2017 Wilver Eli MD Attn: Accountmichael g,[address] [facility], [place], [address], [place] [facility] 8 08:58:27 Allergic rhinitis 87236516 Active Jazzy Cummings MD Attn: Accountmichael g,[address] [facility], [place], [address], [place] [facility] 4 09:03:43 Obesity 570347030 Active 2016 Jazzy Cummings MD Attn: Accountmichael g,[address] [facility], [place], [address], [place] [facility] 4 09:03:39 Problem Notes None recorded. Procedures Surgical History Date Name Laterality Status Provider Name and Address Organization Details Recorded Time 11/29/19 20 Control Implant Removal completed RAFFY LESTER Attn: Accounting,[address] [facility], [place], [address], [place] [facility] 11/29/2019 15:48:31 07/07/19 19 Control Implant Insertion completed Carlos Canales [place] - [facility] 07/06/2018 10:51:56 02/14/19 15 Tonsillectomy completed Felipa Starks [place] [facility] 11/29/2019 15:55:01 Imaging Results Imaging Date Name Status LastModified by Organiz ation Details LastModified Time 07/19/2022 XR, shoulder, 2 or more view completed [address], [address], 07/23/2022 16:30:20 06/21/2023 XR, knee completed [address], [address], 06/21/2023 11:50:33 11/21/2023 US, obstetric, 1st trimester completed SKYLA Carreno [facility] [address], [place], [address], 11/23/2023 12:25:34 Procedure Notes None recorded. Medical [...] propionate 50 mcg/actuati on nasal spray,suspe nsion Sheldon 2 sprays every day by intranasa l [...] 3 167.64 cm 31.3 kg/m2 95 % 14824.9 2 g 110 mm[Hg] 64 mm[Hg] Kathleen Anthony [place] [facility] 3 09:12:30 Date Recorded Body height Body mass index (BMI) Body mass index (BMI) Percentile per age and sex Body weight Systolic blood pressure Diastolic blood pressure Provider Name and Address Organization Details Last Updated DateTime 3 167.64 cm 31.5 kg/m2 95 % 82947.5 1 g 104 mm[Hg] 62 mm[Hg] Felipa Starks [place] [facility] 3 10:51:19 Date Recorded Body height Body mass index (BMI) Percentile per age and sex Body mass index (BMI) Body weight Systolic blood pressure Diastolic blood pressure Provider Name and Address Organization Details Last Updated DateTime 3 167.64 cm 95.36 % 32.1 kg/m2 16960.8 8 g 124 mm[Hg] 62 mm[Hg] Felipa [...] 4 167.64 cm 96 % 33.1 kg/m2 43260.4 4 g 102 /min 99 % 99 % 124 mm[Hg] 58 mm[Hg] Jolie Ye MA [facility] 4 10:08:54 Date Recorded Heart rate Systolic blood pressure Diastolic blood pressure Provider Name and Address Organization Details Last Updated DateTime 10/10/2023 88 /min 118 mm[Hg] 72 mm[Hg] Tip Dave MA [facility] 10/10/2023 11:39:49 Date Recorded Body height Body mass index (BMI) Percentile per age and sex Body mass index (BMI) Body weight Systolic blood pressure Diastolic blood pressure Provider Name and Address Organization Details Last Updated DateTime 4 167.64 cm 96 % 33.2 kg/m2 05767.0 3 g 132 mm[Hg] 74 mm[Hg] Felipa tSarks [place] - [facility] 4 12:18:24 Social History Question Answer Notes LastModified by Organizat ion Details LastModified Time Tobacco Smoking Status Never Smoker Not Available [employer] 12/18/2019 03:43:25 Do You Have An Advance Directive? No [id number] Information not available 12/18/2019 What Is Your Level Of Alcohol Consumption? None [id number] Information not available 12/18/2019 Animal Exposure? No Informat ion not available 11/04/2014 Is Blood Transfusion Acceptable In An Emergency? Yes [id number] Information not available 12/18/2019 What Is Your Level Of Caffeine Consumption? Moderate [id number] Information not available 12/18/2019 How Much Tobacco Do You Chew? None [id number] Information not available 12/18/2019 In The 14 [...] Type Of Diet Are You Following? REGULAR [id number] Information not available 12/18/2019 Which Illicit Or Recreational Drugs Have You Used? Marijuana [id number] Information not available 12/18/2019 Do You Or Have You Ever Used E-cigarettes Or Vape? Former User Of Electronic Cigarettes Information not available 10/10/2023 Education 11 Information n ot available 11/29/2019 What Is The Highest Grade Or Level Of School You Have Completed Or The Highest Degree You Have Received? [id number] Information not available 07/16/2020 What Is Your Home Situation? Both Parents [id number] Information not available 12/18/2019 What Was The Date Of Your Most Recent Tobacco Screening? 10/10/2023 Information not available 10/10/2023 How Many Children Do You Have? 0 [id number] Information not available 12/18/2019 What Is Your Parents' Marital Status? Unmarried [id number] Information not available 12/18/2019 Performs Monthly Self-breast Exam? No Information no t available 11/29/2019 Do You Use Protection During Sex? Always [id number] Information not available 12/18/2019 What Is Your Relationship Status? Single [id number] Information not available 12/18/2019 What Is The Name Of Your School? [employer] [id number] Information not available 12/18/2019 Do You Use Your Seat Belt Or Car Seat Routinely? Yes Information not available 07/16/2020 Seat Belts Used Routinely Yes Information not available 11/29/2019 Are You Sexually Active? Yes [id number] Information not available 12/18/2019 Do You Have Any Siblings? 3 [id number] Information not available 12/18/2019 Do You Have Smoke And Carbon Monoxide Detectors In Your Home? Yes [id number] Information not available 12/18/2019 Are You Passively Exposed To Smoke? Yes Information no t available 11/04/2014 Do You Or Have You Ever Used Smokeless Tobacco? Never Used Smokeless Tobacco [id number] Information not available 12/18/2019 How Much Tobacco Do You Smoke? No [id number] Information not available 12/18/2019 What Types Of Sporting Activities Do You Participate In? Volleyball, Basketball, Tennis [id number] Information not available 12/18/2019 Do You Use Any Illicit Or Recreational Drugs? Yes Marijuana Information not available 06/18/2022 Do You Use Sunscreen Routinely? No [id number] Information not available 12/18/2019 Has Tobacco Cessation Counseling Been Provided? Yes Information not available 06/18/2022 On What Date Was Tobacco Cessation Counseling Provided? 10/10/2023 Information not available 10/10/2023 Have You Used IV Drugs? No Information not available 07/16/2020 Year In School 10 [email or web address] Informatio n not available 08/29/2018 Do You Or Have You Ever Used Any Other Forms Of Tobacco Or Nicotine? No [email or web address] Information not available 03/24/2022 Sex: Female Functional Status Question Answer Note LastModified by Organizat ion Details LastModified Time What is your exercise level? Occasional [id number] Information not available 12/18/2019 Mental Status None [...] Condition Response Other N Breast Cancer N Depression N Lung Disease N Breast Problem N Anesthesia Complications N Anxiety Disorder N Polyps N Acid Reflux (GERD) N Cancer N Endometriosis N Liver Disease N Kidney or Bladder Problems N Thyroid Problems N GI Problems N Acne Y Eating Disorder N Anemia N Diabetes N Ovarian Cancer N Blood Transfusions N Seizures/Epilepsy N Abuse/Domestic Violence N Asthma Y Allergies Y Pre-Eclampsia N Osteoporosis N Gynecological History Statement/Question [...] Recorded Time HPV9 7 completed Not Available [facility] 03/03/2019 02:33:57 HPV9 8 completed Not Available [facility] 03/03/2019 02:35:21 Influenza, split virus, quadrivalent, PF 8 completed Not Available [facility] 03/03/2019 02:47:53 Influenza, split virus, quadrivalent, preservative 0 completed L[place] [facility] 11/29/2019 16:34:18 Tdap 5 completed Not Available [facility] 03/03/2019 02:44:16 meningococcal MCV4P 5 completed Not Available [facility] 03/03/2019 02:30:16 Influenza, split virus, quadrivalent, PF 5 completed Not Available [facility] 03/03/2019 02:34:21 DTP 4 completed LISA Munoz, [...] 2 dose 6 completed Katherine Warford, [place] [facility] 06/14/2016 16:08:40 Hep B, unspecified formulation 4 completed Katherine Warford, [place] [facility] 06/14/2016 16:08:50 Hep B, unspecified formulation 4 completed Katherine War[place], [place] [facility] 06/14/2016 16:08:55 Hep B, unspecified formulation 4 completed Katherine Warford, [place] [facility] 06/14/2016 16:08:59 Hep B, unspecified formulation 4 completed Katherine [place], [place] [facility] 06/14/2016 16:09:04 MMR 5 completed Katherine Warford, [place] [facility] 06/14/2016 16:09:14 MMR 8 completed Katherine Warford, [place] [facility] 06/14/2016 16:09:19 meningococcal ACWY, [...] 16:10:12 polio, unspecified formulation 4 completed Katherine [place] [facility] 06/14/2016 16:10:16 polio, unspecified formulation 5 completed Katherine [place] [facility] 06/14/2016 16:10:20 polio, unspecified formulation 8 completed [place] [facility] 06/14/2016 16:10:24 varicella 5 completed Katherine [place] [facility] 06/14/2016 16:10:34 varicella 8 completed Katherine [place] [facility] 06/14/2016 16:10:39 Past Encounters Encounter ID Performer Location Encounter Start Date Encounter Closed Date Diagnosis/Indication Diagnosis SNOMED-CT Code Diagnosis ICD10 Code Diagnosis Note [id number] LISA Guo (Peds) [address] [place] [address] 11/04/2014 15:16:16 11/04/2014 17:44:50 Well child [id number] Anticipato ry guidance discussed as listed in well visit document, which was provided to the parent. Vaccinatio ns given as ordered. Parental questions were solicited and answered. Follow up for well children's tutor on a yearly basis; call office sooner for any new or acute concerns. Parent verbalized understand ing. Mild persi stent asthma [id number] Child managed at [facility] - refilled Qvar and singulair in September 2014 - stressed compliance with therapy. Patient needs to follow up with pulmonolog y every 3-6 months - inlfuenza vaccine given today. [id number] MD [facility] (Peds) [address] [place] [phone] 10/08/2016 10:09:26 10/08/2016 11:16:19 Well child 178230086 Z00.129 11yo F with good growth and normal developmen t. IUTD except HPV - given #1 today, needs 2nd one after 6 months. Return yearly for well check.. Mild persi stent asthma 665984899 J45.30 Well-contr olled despite not using daily controller for many months . Reminded mom to f/u with pulmonolog y as recommende d. Obesity 751734067 E66.9 wt and BMI > 99%ile since 2014, with accelerate d wt gain, most likely d/t unhealthy eating habits (sweets) and lack of physical activity. Extensive discussion on health risks and need for early interventi on. Pt agrees to try dietary modificati on and f/u in 3 months for weight check.Will get obesity screening labs today. Pain in left knee 342034 0887 21986 M25.562 given focal tenderness and pain with certain ROM, > 6 wks post-injur y, will check XR and refer for PT if negative for fx. Allergic rhinitis 498168 04 J30.9 [id number] MD Nida [facility] (Peds) [address] [place] [phone] 01/11/2017 09:48:52 01/12/2017 14:04:25 Obesity 808410874 E66.9 10lb wt gain in 3 months, which is even more accelerate d than the previous gain. Reviewed charts (and given hard copy) with pt/mom, again stressed the importance of diet change and exercise.P t to get labs done today.Like ly f/u in 3 months for wt check. Mild persi stent asthma 406464805 J45.30 Pain in left knee 445035 8889 52366 M25.562 Pain seemingly resolved, whether with PT or natural course. Advised regular activity with stretching and wt loss. [id number] [facility] [address] [place] [phone] 06/08/2017 14:53:51 06/14/2017 13:09:55 Well child 412033273 Z00.129 Pleasant 12yo AAF, with no acute issues.HPV #2 today - IUTD.RTC yearly for WCC. Obesity 273486621 E66.9 Again with excessive wt gain, +20lb in 5 months, heading further away from normal growth chart.Revi ewed charts (and given hard copy) with pt/mom.Pt is shocked by her wt trend and seems regretful. Again discussed health risks of continued obesity, and need for diet change and exercise.T hicker and larger acanthosis .Repeat labs today. Intermittent asthma 4276 02474 J45.20 No exacerbati on or alb use/need in at least past 1 year. [id number] [facility] [address] [place] [phone] 12/28/2017 11:14:15 12/30/2017 14:52:22 History and physical examination, school 00852656 Z02.0 School physical form completed and given to pt (1 for home, 1 for school). Well child 425487130 Z00 .129 Pleasant 12.5yo AAF, with no acute issues.IUT D.RTC yearly for WCC. Needs infl uenza immunization 657592985 Z23 Obesity 733225472 E66.9 No wt change since May, which is good, though wt and BMI still > 99%ile and much room for improvemen t.Complime nted pt on good work, at least on initiating it after last visit, and encouraged to resume dance (which [facility] likes to, and can be a time of bonding for pt), and choose healthier options, if pt chooses to eat at fast food chains. Intermittent asthma 4276 54401 J45.20 No exacerbati on or alb use/need in at least > 1 year.Asthm a action plan given for school. Allergic rhinitis 126447 04 J30.9 Contracept ion education 549480992 Z30.09 Discussed different options of ' control' available. MGM does not think pt can do daily pills. Pt okay with doing shots - but also interested in implants.G ave handout and encouraged pt to review with mom, before OB appt. Positive s creening for depression on PHQ-9 (Patient Health Questionnaire 9) [id number] 60326 Z13.89 Pt became sad when discussing grandma (present today), as she was just diagnosed with stage 4 breast cancer.Enc ouraged pt to enjoy her time with grandma and not be discourage d by her health.Inf ormed of counseling service available here. [id number] [facility] ([facility]) [address] [place] [phone] 07/06/2018 09:47:26 07/06/2018 11:48:00 Family planning surveillance 277222298 Z30.09 [facility] of sexually transmitted infection 511289862 Z20.2 Insertion of subcutaneous contraceptive 320041711 Z30.205 [id number] MD Nida Decker [facility] (Peds) [address] [place] [phone] 08/29/2018 09:27:59 08/30/2018 10:58:25 History and physical examination, sports participation 080279973 Z02.5 No red flags on history & PE with regards to sports participat ion Has poor visual acuity.adv ised protective eyewear during sports. Wants to play basketball Cleared for sports with no restrictio ns Obesity 687962934 E66.9 Obesity+ No other clinical comorbidit ies of obesity Has upward trend in BMI ,but noted to have 5 lb weight loss since last visit Healthy eating & life style measures advised. Reduce screen time to less than 1 hrs,No sugary drinks,juan pablo nted material provided. Obesity specific labs ordered. [id number] [facility] ([facility]) [address] [place] [phone] 0 11/29/2019 15:32:17 12/03/2019 15:06:38 Removal of subcutaneous contraceptive done 9598505408 66489 Z98.890 Nexplanon removed without issue, pt tolerated well. Advised return to fertility in 1-2 weeks. Pt voiced understand ing. Family ej nning surveillance 212887803 Z30.09 Discussed different control options with patient such as OCPs, patch, ring, Depo Provera shot, and IUDs. Pt may be interested in starting Annovera, but does not want control at this time. She wants to think about it and talk to her mom. Informatio nal handout and condoms provided. RTC when decision made. Venereal d isease screening 815914600 Z11.3 Safe sex practices discussed. Unilateral mastalgia 315 741637 N64.4 R breast pain x 7 days. No L breast pain. PE with abnormal tenderness with palpation. F/u US. Advised supportive bra without underwire, low fat diet, limited caffeine, and warm compresses and OTC analgesics for pain. Administra tion of influenza vaccine 96391811 Z23 [id number] [facility] ([facility]) [address] [place] [phone] 0 12/07/2019 10:05:19 12/10/2019 08:25:34 Exposure to sexually transmissible disorder 565557018 Z20.2 [id number] Carlos Parkerdustin [facility] ([facility]) [address] [place] [phone] 0 07/16/2020 15:46:16 07/22/2020 08:11:01 Family planning surveillance 445175478 Z30.09 Obesity 514567623 E66.9 Exposure t o sexually transmissible disorder 510567335 Z20.2 Gonorrhea 10437851 A54.9 Resulted as positive on 11/29/19 Venereal d isease screening 162114178 Z11.3 [id number] [facility] ([facility]) [address] [place] [address] [phone] 0 10/10/2020 11:53:30 10/14/2020 09:01:52 Depot contraceptive-no problem 636725820 Z30.42 [id number] Naina Cobos MA [facility] (BI[employer]BOARD ERECTOR) [address] [place] [address] [phone] 0 12/26/2020 10:59:47 12/29/2020 10:34:24 Family planning surveillance 430140998 Z30.09 [id number] RAFFY LESTER [facility] (BI[employer]BOARD ERECTOR) [address] [place] [phone] 0 03/24/2022 10:42:48 03/25/2022 14:41:17 Contraception care management 184302375 Z30.9 Other options of contracept ujan a discussed, pt happy with Depo and not interested in switching. Advised Depo contracept ion can increase risk of osteoporos is thus take Ca w/ Vit D supplement ation and consider alternativ e contracept mounika after 2 years use. RTC every 3 months for injection. Advised does not protect from STD & to use condoms. Venereal d isease screening 070335681 Z11.3 Routine screening, safe sex practices discussed. [id number] [facility] [address] [place] [address] [phone] 0 05/12/2022 09:00:59 05/17/2022 10:12:02 Acute vaginitis 80476492 N76.0 Pt has a concern for vaginal discharge. She reports it started 2 weeks ago, has light brown color with fishy odor. H/o trich, treated Mar 2022. PE concerning for BV vs trich, will treat empiricall y with PO Flagyl. Follow up cultures. Safe sex practices discussed. RTC if symptoms persist. [id number] RAFFY LESTER [facility] (BILLBOARD ERECTOR) [address] [place] [address] [phone] 06/18/2022 10:39:14 07/08/2022 14:22:29 Surveillance of depot contraception done 5508706219 9104 Z30.42 Other options of contracept juan [...] from STDs & to use condoms. Obesity 036303594 E66.9 Per BMI 31.5 History of sexually transmitted disease 734452576 Z86.19 H/o trich s/p treatment. Experienci ng discharge and irritation again, will retest. Safe sex practices discussed. [id number] RAFFY LESTER (BILLBOARD ERECTOR) [address] [place] [address] [phone] 0 12/24/2022 11:20:56 12/30/2022 09:12:10 Abnormal uterine bleeding 7584206930 9100 N93.9 Pt with 2 weeks of bleeding. Discontinu ed Depo Provera a few months ago (last injection June 2022). Advised irregular periods likely due to hormone imbalance from Depo and the resumption of normal cycle can take up to a year. Will check labs and start temporary course of patches to stop bleeding. Pt is not interested in staying on exterminator contracept ion. RTC if bleeding persists. History of sexually transmitted disease 860924629 Z86.19 Positive for chlamydia at last visit June 2022, s/p treatment. Routine screening, safe sex practices discussed. [id number] MD Nida Newton (BI[employer]BOARD E[employer]OR) [address] [place] [phone] 10/10/2023 09:33:35 10/20/2023 11:35:35 Insomnia 193071583 G47.00 Sleep onset and maintenanc e. Poor sleep hygeine. Counselled on lifestyle modificati ons. Doxylamine mainly prescribed for nausea but would have added benefit to help with sleep. Urine preg dhara test positive 072505148 Z32.01 Rosalia is a 18 y/o presenting [...] feels safe at home and in her [facility]. She does wish to speak to a outsole caser about transporta tion difficulti es and establishi ng care with a dentist. She also reports nausea and vomiting, smoking marijuana, mild intermitte nt headaches improved with water, lower stomach cramping, and insomnia since becoming . 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 She denies dizziness, changes in vision, numbness, [...] . [facility] due to obesity and black race. Will also connect patient with resources for transporta tion and dentist. Initial blood pressure elevated to 124/58, improved to 118/72 on recheck, which is reassuring . Plan to follow-up in 4 weeks for further management . Marijuana user 823840713 F12.90 Counselled patient on marijuana cessation; advised there is no safe amount during . Patient had been self-medic ating for nausea, appropriat e regimen started as below. Nausea and vomiting in 5188407383 O21.9 Counselled on lifestyle modificati ons including trigger avoidance, small frequent meals, taking PNV at night. Will also start pyridoxine and doxylamine . Elevated blood-pressure reading without diagnosis of hypertension 036512583 R03.0 Initial blood pressure elevated to 124/58, improved to 118/72 on recheck, which is reassuring . No red flag symptoms. Maternal o besity complicating , childbirth and the puerperium, antepartum 9499985721 07 O99.210 BMI 33.1, consider ASA for preeclamps ia prophylaxi s [id number] MD Nida MARTELL (BILLBOARD ERECTOR) [address] [place] [address] 11/07/2023 11:33:06 11/17/2023 10:43:26 Routine care 612155486 Z34.90 Rosalia is a 18 y/o presenting [...] quit tobacco. She is planning on transferri [facility] entirely to [place] because it is closer to home. No red flag symptoms. Exam reassuring . Plan on inheritest and [id number] , repeat dating ultrasound . Insomnia 404551151 G47.0 0 Sleep onset and maintenanc e. Poor sleep hygeine. Counselled on lifestyle modificati ons. Doxylamine previously prescribed for nausea but would have added benefit to help with sleep.Nadine ent reports continued symptoms despite doxylamine use. Will switch to diphenhydr amine. Marijuana user 255950033 F12.90 Counselled patient on marijuana cessation; advised there is no safe amount during . Patient had been self-medic ating for nausea, appropriat e regimen started as below. Nausea and vomiting in 7213101123 O21.9 Counselled on lifestyle modificati ons including trigger avoidance, small frequent meals, taking PNV at night. Trial of pyridoxine and doxylamine , patient reports refractory symptoms. Will switch to diphenhydr amine for effect on nausea and insomnia. Elevated blood-pressure reading without diagnosis of hypertension 224179070 R03.0 Elevated to 132/74. Too early in to be attributed to preeclamps ia. Cannot rule out underlying hypertensi on. No red flag symptoms. Exam reassuring . Will obtain baseline preeclamps ia labs. Maternal o besity complicating , childbirth and the puerperium, antepartum 6029107974 07 O99.210 BMI 33.1, plan on ASA for preeclamps ia prophylaxi s Health Concerns Section Related Observation LastModified by Organization Detai ls LastModified Time None Recorded Concern Status LastModified by Organization Details LastModified Time None Recorded Advance Directives Directive N: Payers Encounter Date Sequence Insurance Name Policy Number Policy Hicks Covered Member ID Hicks Member ID Guarantor Name 05/12/2022 1 [facility] (MEDICAID HMO) [id number] Rosalia Ortiz [id number] Janene Damon 06/18/2022 1 [facility] (MEDICAID HMO) [id number] Rosalia Ortiz [id number] Janene Damon 12/24/2022 1 *SELF PAY* Deanna Damon 10/10/2023 1 MEDICAID - MOVED-MGRHOLD - PENDING [id number] Janene Damon 11/07/2023 1 MEDICAID - MOVED-MGRHOLD - PENDING [id number] Janene Damon Notes Date Note Type Note [...] abdominal pain. RAFFY LESTER Attn: [address]ing[address] [place], [address], [facility] 05/26/2022 14:21:42 06/18/2022 text/html [...] or dyspareunia. RAFFY LESTER Attn: Accounting[address] [facility] [place], [address], [facility] 07/07/2022 16:53:43 12/24/2022 text/html [...] CP, SOB. RAFFY LESTER Attn: Accounting[address] [facility], [place], [address], [facility] 12/24/2022 15:18:12 10/10/2023 text/html [...] She does wish to speak to a outsole caser about transportation difficulties and establishing care with a dentist. She also reports nausea and vomiting, smoking marijuana, mild intermittent headaches improved with water, lower stomach cramping, and insomnia since becoming . 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 She denies dizziness, changes in vision, numbness, [...] group visits: {{yes* no}}Home visits ok: {{yes* no}}Harmane stephen Dentist: {{yes no*}} Dental Visit in the last year: {{yes no*}}Regular Exercise Routine: {{yes* no}}Taking vitamin prior to : {{yes no*}}Open to vaccination: Tdap: {{yes* no}} COVID: {{yes* no}} Flu: {{yes* no not indicated}} RSV: {{yes* no}}Consent for urine drug screen: {{yes* no}}[place]: {{postive negative*}} PHQ9: {{postive negative*}} GAD7: {{positive negative*} }ACES: {{1 2 3 4 5+ 0#}}Resi lience: {{high* low}}Trauma/P TSD screen: neg (11); SDOH: trouble with transportation, in need of dentistPlanning to breastfeed: {{yes* no}} Circumcision {{yes* no undecided}} Epidural {{yes* no undecided}} Post- contraception {{OCP Depo* IUD Nexpl anon tubal none}} Jenifer Richter MD Attn: [address]ing[address] [place], [address], [facility] 10/18/2023 08:59:19 11/07/2023 text/html Rosalia [...] is planning on transferring care entirely to [place] because it is closer to home. She [...] flagyl- varicella non-immune Anticipate complete transfer to [place] due to patient preference INITIAL LABS Date: [...] contraception: Lc CARDENAS MD Attn: Accounting[address] [place], [address], [facility] 11/17/2023 09:32:46 OBGyn Episode Ob Episode Information Episode Created Date Number of Fetuses Patient Bloodtype Patient rh Status Prepregnancy Weight lbs Domestic Partner Domestic Partner Phone Father Name Wood Grainer Status 10/10/19 24 1 B Positive 205 OPEN Fetus Data First Name Last Name Admitted to NICU Weight (g) Sex Living Outcome Pediatric Complications Fetus ID Race Codes Race Delivery Type [id number] Problems Problem Notes Problem Name Start Date End Date Resolution Snomed Code Not e Elevated blood-pressure reading without diagnosis of hypertension 10/13/2023 [id number] Baseline preeclampsia labs Insomnia 10/13/2023 025749709 Refractor y to unisom, trial benadryl Bacterial vaginosis in 10/12/2023 [id number] Initial labs , treated with flagyl Marijuana user 10/13/2023 260813184 Coun selled patient on marijuana cessation; advised there is no safe amount during . Patient had been self-medicating for nausea. Routine care 11/13/2023 212707447 Nausea and vomiting in 10/13/2023 8649583969 Refractory to unisom and B6, trial benadryl Urine test positive 10/13/2023 329078993 Maternal obesity complicating , childbirth and the puerperium, antepartum 10/13/2023 162401026347 BMI 33.1, consi tevin ASA for preeclampsia prophylaxis Ritchie Calculation Initial [...] Ultra Sound Latest Days Gestation 0 0 Pre-antelmo Flowsheet Flowsheet Date 10/10/2023 Schmidt Score Blood Edema Fundus Height Fundus Units Glucose Ketones Leukocytes Nitrite Labor Signs Protein Cervic Dilation Cervic Effacement Cervic Station none Other (see comments ) Type Weight in lbs Pre/Post Dialysis Refused With clothes 205.368132309655 BP Diastolic BP Location Tested BP Systolic [...] She does wish to speak to a outsole caser about transportation difficulties and establishing care with a dentist. She also reports nausea and vomiting, smoking marijuana, mild intermittent headaches improved with water, lower stomach cramping, and insomnia since becoming . 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 She denies dizziness, changes in vision, numbness, [...] in lbs Pre/Post Dialysis Refused With clothes 206.681727262302 BP Diastolic BP Location Tested BP Systolic [...] is planning on transferring care entirely to [place] because it is closer to home. No red flag symptoms. Exam reassuring. Plan on inheritest and , repeat dating ultrasound. Menstrual History Last Menstrual Date Menses Monthly On Bcp Conception Prior Menses Frequency Hcg Plus Date Menarche Onset Age 0708/28/2023 true false 28 202 4 10 Delivery Information Delivery Date Delivery Type Labor Anesthesia Weeks Gestation Incision Type Labor Labor Length Hrs Delivered By Post Complications Tubal Sterilization Discharge Date Comments Discharge Information Feeding Method Contraceptive Method Maternal HG B and HCT Levels
--- OUTSIDE RECORDS SUMMARY | 2024-06-01 17:19 | XMS_ITS | Clinical Summary ---
Author Organization [facility] Address [address] [place] [address] Care Team Providers Care Commercial Property Administrator Name Role Phone Unavailable Primary Care Provider Unavailabl e Source Comments [facility],non-owned Affiliates and Associated Physician Practices is amultiple site organization consisting of ambulatory clinics and hospital sitesin [place], [place], [place]. This disclosure is being madepursuant to the Care Everywhere program and may not contain all information available regarding this patient. Last updated 17.[facility] Allergies No known active allergies Medications * Be aware that medications may not be up to date on this document. Alwaysverify current medications with the patient. Nebulizer Use as directed. 1 Each 0 2 Active beclomethasone dipropionate (QVAR) 80 MCG/ACT inhaler Inhale 1 Puff by mouth 2 times daily 1 Inhaler 4 6 Active albuterol HFA (PROAIR HFA) 108 (90 BASE) MCG/ACT inhaler Inhale 2 Puffs by mouth every 6 hours as needed (for use at school . last refill in 11/10/11) 1 Inhaler 3 6 Active fluticasone propionate (FLONASE) 50 MCG/ACT nasal spray Corydon 1 Corydon into each nostril once daily 1 Bottle 6 6 Active montelukast (SINGULAIR) 5 MG chew tablet Take 1 Tab by mouth at bedtime 30 Tab 1 6 Active Active Problems Problem Noted Date Diagnosed [...] of cough and wheeze, afebrile. Transferred to [facility] from OSH. CXR [...] months Assessment & Plan (03/05/2015 5:17 PM BALANCE BRIDGE INSPECTOR): Asthma - classified as Moderate persistent. This [...] help with her weight. Comments Yes Immunizations Immunization Administration Dates Next Due INFLUENZA VACCINE, QUADR. (F LUZONE; FLULAVAL; FLUARIX; AFLURIA QUADRIVALENT; 6MO+), 0.5 ML (IIV4) 12/02/2015 MENINGOCOCCAL ACWY (MCV4P) VAC IM 12/02/2015 Social History Tobacco Use Types Packs/Day Years Used Date Smoking Tobacco: Never Comments Yes Sex and Gender Information Value Date Recorded Sex Assigned at Not on file Legal Sex Female 2:11 PM BALANCE BRIDGE INSPECTOR Gender Identity Not on file Sexual Orientation Not on file Last Filed Vital Signs Vital Sign Reading Time Taken Comments Blood Pressure 124/82 10/24/2012 2:50 PM CDT Pulse 75 12/02/2015 9:30 AM CDT Temperature 36.7 C (98 F) 10/24/2012 12:45 PM CDT Respiratory Rate 18 [...] CHLAMYDIA/GONORRHEA SCREENING 2019 MENINGOCOCCAL (Group B) VACCINE SHARED DECISION-MAKING (1 of 2 - Standard) 2019 HEPATITIS C SCREENING 06/01/2021 DTAP/TDAP/TD VACCINES (1 - Tdap) 06/05/2022 HEPATITIS B VACCINE (1 of 3 - 19+ 3-dose series) 06/05/2022 PNEUMOCOCCAL VACCINE (1 of 2 - PCV) 06/05/2022 COVID-19 VACCINE (1 - season) 2023 DEPRESSION SCREENING 02/15/2024 INFLUENZA VACCINE (Season Ended) 2024 11/29/2019, 12/28/2017, 12/02/2015, Additional history exists ZOSTER VACCINE (1 of 2) 06/05/2053 Respiratory Syncytial Virus (RSV) Vaccine Pt: or over 60 yrs (1 - 1-dose 75+ series) 06/05/2078 MENINGOCOCCAL GROUPS A/C/Y/W VACCINE Aged Out 12/02/2015 No longer eligible based on patient's age to complete this topic HIB VACCINE Aged Out No longer eligi ble based on patient's age to complete this topic Insurance MEDICAID - [place]
--- OUTSIDE RECORDS SUMMARY | 2024-06-01 17:19 | XMS_ITS | Continuity of Care Document ---
Author Organization [facility] Address [address] [place] [address] [place] [address] Care Team Providers Care Search Engine Marketing Specialist Name Role Phone WILVER ELI Primary Care Provider Assessment No assessment recorded. Plan of Treatment Reminders Order Date Submit Date Provider Last Modified By Organization Details Last Modified Time Details Appointments INDUCTION 2024 12:00A Linda MIRANDA MD Not available Not available Not available Lab None recorded. Referral None recorded. Procedures None recorded. Surgeries None recorded. Imaging US, obstetric , follow-up 2024 [address], [address], [place], [address], 05/31/2024 18:27:06 US, obstetric , biophysic al profile + non-stres s test [address] [facility] [address], [place], [address], 05/31/2024 18:27:06 US, doppler, umbilical artery velocimet ry 2024 [address], [address], [place], [address], 05/31/2024 18:27:06 Medication Orders None recorded. Patient TargetsNo targets recorded. Patient InstructionsNo instructions recorded. Reason for Referral None Reported. Results Created Date Observation Date Name Description Value Unit Range Abnormal Flag Note LastModifiedBy Organization Detail LastModifiedTime 12/01/19 24 12/01/2023 US, obste tric, nucha l trans lucen cy No observ ation record ed. [email or web address] [place] [address], [place], [address], 12/01/2023 11:38:46 12/01/19 24 12/01/2023 US, obste tric, follo w-up No observ ation record ed. [email or web address] [address], [place], [address], 12/01/2023 21:06:23 01/19/20 24 01/19/2024 US, obste tric, 2nd or 3rd trime ster No observ ation record ed. [email or web address] [place] [address], [place], [address], 01/19/2024 12:55:29 01/19/20 24 01/19/2024 US, obste tric, 2nd or 3rd trime ster No observ ation record ed. [email or web address] [address], [place], [address], 01/19/2024 23:42:20 02/15/19 25 02/16/2024 US, obste tric, follo w-up No observ ation record ed. [email or web address] [place] [address], [place], [address], 02/16/2024 18:23:53 02/15/19 25 02/16/2024 US, obste tric, follo w-up No observ ation record ed. [email or web address] [address], [place], [address], 03/20/2024 09:48:19 02/27/19 25 02/28/2024 non-s tress test No observ ation record ed. [address], [place], [address], 02/29/2024 10:47:24 03/26/19 25 03/26/2024 US, obste tric, follo w-up No observ ation record ed. [email or web address] [place] [address], [place], [address], 03/26/2024 13:56:35 03/26/19 25 03/26/2024 US, obste tric, follo w-up No observ ation record ed. [email or web address] [address], [place], [address], 03/27/2024 22:32:13 04/20/19 25 04/19/2024 US, obste tric, follo w-up No observ ation record ed. [email or web address] [place] [address], [place], [address], 04/19/2024 15:30:55 04/20/19 25 04/19/2024 US, obste tric, follo w-up No observ ation record ed. [email or web address] [address], [place], [address], 05/03/2024 17:13:02 05/11/19 25 05/10/2024 US, obste tric, follo w-up No observ ation record ed. [email or web address] [address], [place], [address], 05/10/2024 17:14:53 05/11/19 25 05/10/2024 US, obste tric, bioph ysica l profi le No observ ation record ed. [email or web address] [place] [address], [place], [address], 05/10/2024 17:15:02 05/11/19 25 05/10/2024 US, doppl er, umbil ical arter y veloc imetr y No observ ation record ed. [email or web address] [place] [address], [place], [address], 05/10/2024 17:15:11 05/11/19 25 05/10/2024 US, obste tric, follo w-up No observ ation record ed. [email or web address] [address], [place], [address], 05/15/2024 23:14:19 05/11/19 25 05/10/2024 non-s tress test No observ ation record ed. [email or web address] [place] [address], [place], [address], 05/11/2024 21:47:31 05/12/19 non-s tress test No observ ation record ed. [email or web address] [place] [address], [place], [address], 05/11/2024 10:51:19 05/18/19 25 05/17/2024 non-s tress test No observ ation record ed. [email or web address] [place] [address], [place], [address], 05/17/2024 20:28:22 05/18/19 25 05/17/2024 US, obste tric, bioph ysica l profi le + non-s tress test No observ ation record ed. [email or web address] [place] [address], [place], [address], 05/17/2024 12:13:56 05/18/19 25 05/17/2024 US, doppl er, umbil ical arter y veloc imetr y No observ ation record ed. [email or web address] [place] [address], [place], [address], 05/17/2024 12:14:06 05/18/19 25 05/17/2024 US, obste tric, follo w-up No observ ation record ed. [email or web address] [address], [place], [address], 05/18/2024 13:40:21 05/25/19 25 05/24/2024 US, obste tric, bioph ysica l profi le + non-s tress test No observ ation record ed. [email or web address] [place] [address], [place], [address], 05/24/2024 13:49:45 05/25/19 25 05/24/2024 US, doppl er, umbil ical arter y veloc imetr y No observ ation record ed. [email or web address] [place] [address], [place], [address], 05/24/2024 13:49:54 05/25/19 25 05/24/2024 US, obste tric, bioph ysica l profi le + non-s tress test No observ ation record ed. [email or web address] [address], [place], [address], 05/25/2024 21:25:58 05/25/19 25 05/24/2024 non-s tress test No observ ation record ed. [email or web address] [place] [address], [place], [address], 05/24/2024 11:57:01 06/01/19 25 05/31/2024 US, obste tric, follo w-up No observ ation record ed. [facility] [address], [place], [address], 05/31/2024 13:54:49 06/01/19 25 05/31/2024 US, obste tric, bioph ysica l profi le + non-s tress test No observ ation record ed. [facility] [address], [place], [address], 05/31/2024 13:55:00 06/01/19 25 05/31/2024 US, doppl er, umbil ical arter y veloc imetr y No observ ation record ed. [facility] [address], [place], [address], 05/31/2024 13:55:11 06/01/19 25 05/31/2024 US, obste tric, follo w-up No observ ation record ed. [email or web address] [address], [place], [address], 05/31/2024 22:07:07 Result Notes None recorded. Problems Name Problem SNOMED Code Status Onset Date Resolution Date Notes Provider Name and Address Organization Details Recorded Time 78472354 Active 2023 Maliha patten, [facility] 4 11:58:45 Obesity 701927108 Active start ASA weekly testing at 37wks Bisi patten [facility] 5 17:42:19 with uncertain dates 952354808 Active originall y was dated using last [...] 03/26/24 Marcus Miranda MD [address], [place], [address], [facility] 5 12:54:36 growth restricti on 20232494 Active 10th percentil e, abdominal circumfer ence 8th percentil e, weekly BPP is and Doppler flow study, delivery at 39 weeks Bisi patten [facility] 13:30:21 growth restricti on 42937086 Active 10th percentil e, abdominal circumfer ence 8th percentil e, weekly BPP is and Doppler flow study, delivery at 39 weeks Bisi Angel patten [facility] 13:30:21 Problem Notes None recorded. Procedures Surgical History Date Name Laterality Status Provider Name and Address Organization Details Recorded Time Tonsillectomy completed Sravani Simmons [facility] 03/26/2024 12:40:02 Imaging Results Imaging Date Name Status LastModified by Organiz ation Details LastModified Time 05/31/2024 US, obstetric, follow-up completed [place] [address], [place], [address], 05/31/2024 13:54:49 05/31/2024 US, obstetric, biophysical profile + non-stress test completed [place] [address], [place], [address], 05/31/2024 13:55:00 05/31/2024 US, doppler, umbilical artery velocimetry completed [place] [address], [place], [address], 05/31/2024 13:55:11 Procedure Notes None recorded. Medical Equipment None [...] Address Organization Details Last Updated DateTime 05/31/2024 417973.576 43 g 124 mm[Hg] 72 mm[Hg] Maliha Holt [facility] 05/31/2024 12:26:49 Social History Question Answer Notes LastModified by Organizat ion Details LastModified Time Tobacco Smoking Status Never Smoker Sravani patten, [facility] 04/04/2021 12:33:06 Do You Have An Advance Directive? No [email or web address] Information n ot available 03/26/2024 What Is Your Level Of Alcohol Consumption? None Information not available 04/04/2021 How Many Years Have You Consumed Alcohol? 1 [email or web address] Information not available 03/26/2024 Are You Blind Or Do You Have Difficulty Seeing? No [email or web address] Information n ot available 04/04/2021 What Is Your Level Of Caffeine Consumption? None [email or web address] Information not available 03/26/2024 How Much Tobacco Do You Chew? None [email or web address] Information not available 03/26/2024 In The 14 Days Before Symptom Onset, Have You Had Close Contact With A Laboratory-confirm ed COVID-19 While That Case Was Ill? No [email or web address] Information n ot available 04/04/2021 In The 14 Days Before Symptom Onset, Have You Had Close Contact With A Person Who Is Under Investigation For COVID-19 While That Person Was Ill? No Information not available 04/04/2021 Have You Been To An Area Known To Be High Risk For COVID-19? No [email or web address] Information not available 04/04/2021 Are You Deaf Or Do You Have Serious Difficulty Hearing? No [email or web address] Information not available 04/04/2021 What Type Of Diet Are You Following? REGULAR [email or web address] Information n ot available 04/04/2021 What Is The Highest Grade Or Level Of School You Have Completed Or The Highest Degree You Have Received? 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 No Information not available 03/26/2024 Do You Use Protection During Sex? Always [email or web address] Information not available 03/26/2024 Do You Use Your Seat Belt Or Car Seat Routinely? Yes [email or web address] Information not available 04/04/2021 Do You Have Smoke And Carbon Monoxide Detectors In Your Home? Yes [email or web address] Information not available 04/04/2021 At What Age Did You Start Smoking Tobacco? 14 [email or web address] Information not available 03/26/2024 How Much Tobacco Do You Smoke? No [email or web address] Information not available 03/26/2024 Do You Feel Stressed (tense, Restless, Nervous, Or Anxious, Or Unable To Sleep At Night)? DL25972-7 [email or web address] Information not available 03/26/2024 Do You Use Any Illicit Or Recreational Drugs? No [email or web address] Information not available 04/04/2021 Do You Use Sunscreen Routinely? No [email or web address] Information not available 03/26/2024 Has Tobacco Cessation Counseling Been Provided? No [email or web address] Information not available 04/04/2021 Have You Used IV Drugs? No [email or web address] Information not available 03/26/2024 Do You Or Have You Ever Used Any Other Forms Of Tobacco Or Nicotine? No [email or web address] Information not available 04/04/2021 Sex: Unknown Functional Status Question Answer Note LastModified by Organizat ion Details LastModified Time Do you have difficulty walking or climbing stairs? No [email or web address] Information not available 04/04/2021 Are you able to walk? YESWOREST [email or web address] Information not available 04/04/2021 Are you able to care for yourself? Yes [email or web address] Information not available 04/04/2021 Do you have difficulty dressing or bathing? No [email or web address] Information not available 04/04/2021 What is your exercise level? Moderate [email or web address] Information not available 03/26/2024 Mental Status None recorded. Family History Relationship Description Onset Age of this Age Resolved Age Notes LastModified by Organization Details LastModified Time Father No current problems or disability [email or web address] Not available 03/17 18:32:04 Mother No current problems or disability [email or web address] Not available 03/17 18:32:04 Medical History Condition Response Allergies (Food, seasonal, environmental ) N Other N Drug/Latex Allergies/Reactions N Breast Cancer N Blood Transfusion N Dermatologic Disorders N [...] SNOMED-CT Code Diagnosis ICD10 Code Diagnosis Note [id number] Marcus Miranda MD [place] [address] [address] 05/03/2024 11:27:14 05/03/2024 12:56:33 Routine care 093695827 Z34.91 [id number] Marcus Miranda MD [place] [address],[place] [address] 05/10/2024 15:35:39 05/10/2024 17:27:16 Routine care 636263875 Z34.91 [id number] [facility] [address],[place] [address] 05/10/2024 15:35:57 05/10/2024 16:25:40 Small for gestational age fetus 769131754 O36.5930 Z3A.35 [id number] Maliha Jonathon [place] [address],[place] [address] 05/10/2024 18:20:54 05/11/2024 04:22:17 growth restriction 20022247 O36.5999 [id number] GREG Garrison [facility] [address],[place] [address] 05/17/2024 09:23:04 05/17/2024 10:16:04 growth restriction 51547190 O36.5999 [id number] [facility] [address],[place] [address] 05/17/2024 09:23:42 05/17/2024 10:35:19 Small for gestational age fetus 568753227 O36.5930 Z3A.36 [id number] Marcus Miranda MD [place] [address],[place] [address] 05/17/2024 09:23:56 05/17/2024 11:29:53 Routine care 833134273 Z34.91 [id number] [facility] [address],[place] [address] 05/24/2024 10:18:32 05/24/2024 11:56:08 Small for gestational age fetus 424179698 O36.5930 Z3A.37 [id number] GREG Garrison [place] [address],[place] [address] 05/24/2024 10:19:00 05/24/2024 13:26:20 growth restriction 24480808 O36.5999 [id number] Marcus Miranda MD [place] [address],[place] [address] 05/24/2024 10:19:11 05/24/2024 12:23:32 Routine care 361340608 Z34.91 [id number] [facility] [address],[place] [address] 05/31/2024 10:38:38 05/31/2024 11:22:31 care status 971846814 O36.5930 Z3A.38 [id number] Marcus Miranda MD [place] [address],[place] [address] 05/31/2024 10:39:06 05/31/2024 13:36:23 [id number] Z34.00 Health Concerns Section Related Observation LastModified by Organization Detai ls LastModified Time None Recorded Concern Status LastModified by Organization Details LastModified Time None Recorded Payers Encounter Date Sequence Insurance Name Policy Number Policy Hicks Covered Member ID Hicks Member ID Guarantor Name 05/31/2024 1 [facility] (MEDICAID HMO) [id number] Rosalia Fidel Angel [id number] Rosalia Fidel Angel OBGyn Episode Ob Episode Information Episode Created Date Number of Fetuses Patient Bloodtype Patient rh Status Prepregnancy Weight lbs Domestic Partner Domestic Partner Phone Father Name Collar Closer Lockstitch Status 12/01/19 24 1 B Positive 209 Darreon OPEN Fetus Data First Name Last Name Admitted to NICU Weight (g) Sex Living Outcome Pediatric Complications Fetus ID Race Codes Race Delivery Type [id number] Problems Problem Notes small head measurements Problem Name Start Date End Date Resolution Snomed Code Not e Obesity 129045443 start ASAw eekly testing at 37wks with uncertain dates 049449460 originally w as dated using last menstrual period, this gave significant growth restriction at the 20 week ultrasound , very symmetric,. further discussion indicated irregular periods . To use 9 week ultrasound and observe carefully. Growth ultrasound in 3 weeks GROWTH CONTINUES TO LAG USING [place] - continue growth ultrasounds 03/26/24 growth restriction 73671310 10th percentile , abdominal circumference 8th percentile, [...] Weight in lbs Pre/Post Dialysis Refused Weight 207.341109383883 BP Diastolic BP Location Tested BP Systolic [...] Type Weight in lbs Pre/Post Dialysis Refused 218.622710772509 BP Diastolic BP Location Tested BP Systolic [...] Type Weight in lbs Pre/Post Dialysis Refused 219.156940035306 BP Diastolic BP Location Tested BP Systolic [...] Type Weight in lbs Pre/Post Dialysis Refused 227.010800024745 BP Diastolic BP Location Tested BP Systolic [...] Type Weight in lbs Pre/Post Dialysis Refused 227.186691910285 BP Diastolic BP Location Tested BP Systolic [...] Type Weight in lbs Pre/Post Dialysis Refused 221.975584352304 BP Diastolic BP Location Tested BP Systolic [...] Type Weight in lbs Pre/Post Dialysis Refused 235.846918597344 BP Diastolic BP Location Tested BP Systolic [...] Weight in lbs Pre/Post Dialysis Refused Weight 231.598261362604 BP Diastolic BP Location Tested BP Systolic [...] Type Weight in lbs Pre/Post Dialysis Refused 243.321130979621 BP Diastolic BP Location Tested BP Systolic [...] Weight in lbs Pre/Post Dialysis Refused Weight 243.049621401769 BP Diastolic BP Location Tested BP Systolic BP Type 64 L arm 115 sitting Fetus Heart Rate Present Fetus Movement Comments Flowsheet Date 05/17/2024 Schmidt Score Blood Edema Fundus Height Fundus Units Glucose Ketones Leukocytes Nitrite Labor Signs Protein Cervic Dilation Cervic Effacement Cervic Station Type Weight in lbs Pre/Post Dialysis Refused Weight 237.2882201987 BP Diastolic BP Location Tested BP Systolic [...] Weight in lbs Pre/Post Dialysis Refused Weight 237.6710155510 BP Diastolic BP Location Tested BP Systolic [...] Weight in lbs Pre/Post Dialysis Refused Weight 238.222867128544 BP Diastolic BP Location Tested BP Systolic BP Type 76 L arm 126 sitting Fetus Heart Rate Present Fetus Movement Comments Flowsheet Date 05/24/2024 Schmidt Score Blood Edema Fundus Height Fundus Units Glucose Ketones Leukocytes Nitrite Labor Signs Protein Cervic Dilation Cervic Effacement Cervic Station Type Weight in lbs Pre/Post Dialysis Refused 238.212610501732 BP Diastolic BP Location Tested BP Systolic [...] Type Weight in lbs Pre/Post Dialysis Refused 239.774535222382 BP Diastolic BP Location Tested BP Systolic [...]
[2024-06-01 17:40] VITALS: BMI 37.3
--- NOTE | 2024-06-01 17:40 | LDADM ---
This patient, Rosalia Ortiz, was admitted to Labor/Delivery/Recovery 105 on 06/01/24 at 17:30. Plans for labor, pain management and were discussed with patient. Patient/family oriented to hospital policies and general routines including ID bracelet, bed and alarms, visiting hours, pain management, procedures, bathroom and other care routines, personal items, smoking policy, room service/diet and guest tray routines, security routines, and visiting hours. Patient/Family are encouraged to report perceived risks to care and to ask questions if they do not understand what they are told or what they should do. See OBIX for further documentation.
--- NOTE | 2024-06-01 17:46 | P.PNAN_ITS ---
Anes - Eval Pre Procedure Procedure: labor epidural Date/Time: 06/01/24 17:46 Surgeon: [email or web address] Preop Diagnosis: pain during labor Pre Op Diagnosis: IOL Patient Data Age: 18 Gender: F Height: Weight: Allergies Allergy/AdvReac Type Severity Reaction Status Date / Time No Known Allergies Allergy Verified 05/30/24 15:36 Home Medications ?Medication ?Instructions ?Recorded ?Confirmed ?Type vitamin#30 30 mg iron-10 1 cap PO DAILY 05/30/24 05/30/24 History mg iron-folic acid 1 mg-omg3 capsule Patient hx anesthesia problems: none Family hx anesthesia problems: none Results Review: All pre-operative results and documents have been reviewed as part of the pre- operative evaluation. PMFSH Past Medical History Medical History (Updated 06/01/24 @ 17:48 by Julissa Mckeon CRNA) IUP (intrauterine ), incidental Family History Family History (Updated 05/30/24 @ 15:40 by Renetta Barreto RN) Grandparent Cancer Heart disease Asthma Other Cancer Social History Social History Substance use: never Spiritual care concerns: No Exam Day of Procedure 06/01/24 17:46
[2024-06-01 18:34] LABS: OBXCEM ROM Plus Negative (Negative)
[2024-06-01 20:00] VITALS: TEMP 36.6
[2024-06-01 20:15] LABS: Basophils Percent Auto 0.1 % (0.2-1.2); Eosinophils Percent Auto 0.6 % (0-4.4); Hematocrit 29.6 % (37.0-47.0); Hemoglobin 10.2 g/dL (12.0-15.0); Immature Granulocyte Absolute 0.02 K/mm3 (0.00-0.031); Immature Granulocyte Percent A 0.3 % (0-0.5); Lymphocytes Absolute Auto 2.24 K/mm3 (0.9-3.2); Mean Corpuscular HGB Conc 34.5 g/dl (32-36); Mean Corpuscular Hemoglobin 32.7 pg (26-34); Mean Corpuscular Volume 94.9 fl (80-100); Mean Platelet Volume 10.7 fl (7.4-10.4); Monocytes Absolute Auto 0.8 K/mm3 (0.1-0.6); Monocytes Percent Auto 11.3 % (2.6-8.5); Neutrophils Absolute Auto 3.9 K/mm3 (1.3-6.7); Neutrophils Percent Auto 55.7 % (45.5-73.1); Platelet Count Result 217 k/mm3 (150-375); Red Blood Count 3.12 M/mm3 (4.2-5.4)
[2024-06-01] MEDS: miSOPROStol 25 MCG TABLET 50 MCG VAGINAL (20:22)
[2024-06-01 20:45] VITALS: BP 119/65; PULSE 60
[2024-06-01 21:00] VITALS: BP 112/57; PULSE 59
[2024-06-01 21:04] LABS: Syphilis IgG/IgM Antibody Negative (Negative)
[2024-06-01 21:05] LABS: HIV 1/2 Ab P24 Ag Result Negative (Negative)
[2024-06-01 21:30] VITALS: BP 94/70; PULSE 70
[2024-06-01 22:00] VITALS: BP 102/54; PULSE 52
[2024-06-01] MEDS: LACTATED RINGERS 1,000 ML 125 ML IV CONT (22:18)
[2024-06-01] MEDS: AMPICILLIN 2 GM/NS 100 ML 2 GM/100 ML BAG IVPB (22:18)
[2024-06-01 23:00] VITALS: BP 123/65; PULSE 63
[2024-06-01] MEDS: ACETAMINOPHEN 500 MG TABLET 1000 MG PO (23:15)
[2024-06-01] MEDS: fentaNYL CITRATE INJ (*CRX) 100 MCG/2 ML VIAL 50 MCG IV PUSH (23:57)
[2024-06-02] VITALS (92 sets, daily range): BP systolic 93–141; BP diastolic 12–89; PULSE 52–114; RESP 14–18; TEMP 36.1–36.7; O2SAT 94–100
[2024-06-02] MEDS: AMPICILLIN 1 GM/NS 50 ML 1 GM/50 ML BAG IVPB ×2 (02:49→07:06)
[2024-06-02] MEDS: fentaNYL CITRATE INJ (*CRX) 100 MCG/2 ML VIAL IV PUSH (05:49)
[2024-06-02] MEDS: LACTATED RINGERS 1,000 ML 125 ML IV CONT (07:05)
[2024-06-02] MEDS: ACETAMINOPHEN 500 MG TABLET 1000 MG PO (07:50)
[2024-06-02] MEDS: FAMOTIDINE 20 MG/2 ML VIAL IV PUSH (08:10)
[2024-06-02] MEDS: ONDANSETRON INJ 4 MG/2 ML VIAL IV PUSH ×3 (08:10→17:24)
--- NOTE | 2024-06-02 08:13 | P.PNAN_ITS ---
Anes - Initial Pre Proc Eval Procedure: Operation Date: 06/02/24 08:30 Proposed Procedures p Section - Marcus Figueroa MD Date/Time: 06/02/24 08:13 Surgeon: Marcus Figueroa MD Pre Op Diagnosis: IOL Patient Data Age: 18 Gender: F Height: 1.7 m Weight: 108 kg Last Vital Signs Temp 36.6 C 06/02/24 07:25 Pulse 53 L 06/02/24 07:30 BP 115/54 L 06/02/24 07:30 Pulse Ox 100 06/02/24 05:16 O2 Del Method Room Air 06/01/24 17:00 Allergies Allergy/AdvReac Type Severity Reaction Status Date / Time No Known Allergies Allergy Verified 05/30/24 15:36 Home Medications ?Medication ?Instructions ?Recorded ?Confirmed ?Type vitamin#30 30 mg iron-10 1 cap PO DAILY 05/30/24 05/30/24 History mg iron-folic acid 1 mg-omg3 capsule Laboratory Tests 06/01/24 06/01/24 13:08 19:45 WBC 7.0 K/mm3 (4.5-10.0) RBC 3.12 L M/mm3 (4.2-5.4) Hgb 10.2 L D g/dL (12.0-15.0) Hct 29.6 L % (37.0-47.0) MCV 94.9 fl (80-100) MCH 32.7 pg (26-34) MCHC 34.5 g/dl (32-36) RDW 13.0 % (11.5-14.5) Plt Count 217 k/mm3 (150-375) MPV 10.7 H fl (7.4-10.4) Immature Gran % (Auto) 0.3 % (0-0.5) Neut % (Auto) 55.7 % (45.5-73.1) Lymph % (Auto) 32.0 % (18.3-44.2) [place] % (Auto) 11.3 H % (2.6-8.5) Eos % (Auto) 0.6 % (0-4.4) Baso % (Auto) 0.1 L % (0.2-1.2) Lymph # (Auto) 2.24 K/mm3 (0.9-3.2) [place] # (Auto) 0.8 H K/mm3 (0.1-0.6) Eos # (Auto) 0.0 K/mm3 (0-0.3) Baso # (Auto) 0.0 K/mm3 (0.0-0.1) Abs Immat Gran (auto) 0.02 K/mm3 (0.00-0.031) Absolute Neuts (auto) 3.9 K/mm3 (1.3-6.7) Absolute Nucleated RBC 0.000 K/mm3 (0.0-0.012) Nucleated RBC % 0.0 % (0.0-0.2) Membranes Rupture Rom plus negative (Negative) Syphilis IgG/IgM Ab Negative (Negative) HIV 1&2 Ab/P24 Ag 4thGn Negative (Negative) Blood Type B Positive Antibody Screen Negative Patient hx anesthesia problems: none Family hx anesthesia problems: none Results Review: All pre-operative results and documents have been reviewed as part of the pre- operative evaluation. [facility] Past Medical History Medical History IUP (intrauterine ), incidental Family History Family History Grandparent Cancer Heart disease Asthma Other Cancer Social History Social History Smoking status: Never smoker Second hand tobacco smoke exposure: No Substance use: never Do You Feel Safe in your Home?: Yes Lack of Transportation: No Lack of Food: Never True Current Housing: I Have Housing Concerned About Future Housing: No Difficulty Paying Gas/Electric Bills: No Difficulty Paying for Meds: No Currently Unemployed: No Education: High School Diploma/GED Difficulty w/ Childcare or Family Care: No Spiritual care concerns: No Anes - Eval Final PreProcedure Day of Procedure 06/02/24 08:13 Patient weight: obese Heart: regular rate and rhythm Lungs: clear to auscultation Airway: Mallampati scale class II Neurological: alert and oriented Last oral intake: >/= 8 hours ASA classification: II Emergent: no Anesthetic plan: proceed Anesthesia type and monitoring: regional spinal and standard monitoring Results Review: All pre-operative results and documents have been reviewed as part of the pre-operative evaluation. Informed Consent: The patient's anesthetic plan and its attendant risks and benefits were discussed with the patient/family/POA. Questions were solicited and answers provided to the satisfaction of the patient/family/POA.
--- NOTE | 2024-06-02 08:15 | P.HP_ITS ---
H&P: HPI History of Present Illness Date/Time: 06/02/24 08:15 Chief Complaint: Term Narrative: 18 year old primiparous female with growth restriction and oligohydramnios. Exhibited in intolerance of labor. Agreed to proceed with delivery. She understands risks, benefits, and alternatives. She has completed informed consent process and is ready to proceed. The patient understands the details of the procedure. The procedure has been explained in detail. She understands the risks. She understands that injuries may occur that result in hospitalization, more surgery, and severe illness. She understands risk of hemorrhage and infection. She denies any chest pain or shortness of breath. She denies any nausea, vomiting, fever, chills. Review of Systems Review of Systems: All systems reviewed & are unremarkable except as noted in HPI and below Constitutional: Constitutional: Denies chills, Denies fatigue, Denies fever(s) and Denies weakness Eyes: Eyes: Denies blurry vision, Denies change in vision, Denies loss of peripheral vision, Denies loss of vision, Denies other visual disturbances and Denies eye pain ENT: Denies vertigo, Denies dizziness, Denies hearing loss, Denies mouth pain, Denies nasal obstruction, Denies neck mass and Denies neck pain Cardiovascular: Cardiovascular: Denies chest pain, Denies diaphoresis, Denies syncope, Denies leg edema and Denies dyspnea Respiratory: Respiratory: Denies chest congestion, Denies cough, Denies hemoptysis, Denies dyspnea and Denies wheezing Gastrointestinal: Gastrointestinal: Denies abdominal pain, Denies constipation, Denies diarrhea, Denies nausea and Denies vomiting Genitourinary: Genitourinary: Denies hematuria, Denies change in libido, Denies nocturia, Denies genital lesions, Denies flank pain and Denies urinary urgency Musculoskeletal: Musculoskeletal: Denies abnormal gait, Denies back pain, Denies myalgias, Denies arthralgias, Denies joint swelling, Denies muscle weakness and Denies neck pain Integumentary/Breasts: Skin/Breast: Denies swelling, Denies breast pain, Denies breast mass, Denies dry skin, Denies nipple discharge, Denies unusual bruising and Denies jaundice Neurologic: Denies Neuro-related abnormal movements, Denies Abnormal speech present, Denies abnormal gait, Denies behavioral changes, Denies confusion, Denies vertigo, Denies dizziness, Denies syncope, Denies loss of vision, Denies memory loss, Denies convulsions and Denies weakness Psychiatric: Psychiatric: Denies abnormal sleep pattern, Denies behavioral changes, Denies change in libido, Denies confusion, Denies depression, Denies anhedonia and Denies memory loss Endocrine: Endocrine: Reports no additional endocrine complaints, Denies c hange in libido and Denies fatigue Hematologic/Lymphatic: Hematologic/Lymphatic: Reports no additional hematologic/lymphatic complaints Allergic/Immunologic: Allergic/Immunologic: Reports no additional allergic/immunologic complaints and Denies wheezing PMFSH Past Medical History Medical History IUP (intrauterine ), incidental Family History Family History Grandparent Cancer Heart disease Asthma Other Cancer Social History Social History Smoking status: Never smoker Second hand tobacco smoke exposure: No Substance use: never Do You Feel Safe in your Home?: Yes Lack of Transportation: No Lack of Food: Never True Current Housing: I Have Housing Concerned About Future Housing: No Difficulty Paying Gas/Electric Bills: No Difficulty Paying for Meds: No Currently Unemployed: No Education: High School Diploma/GED Difficulty w/ Childcare or Family Care: No Spiritual care concerns: No Meds Home Medications and Allergies Home Medications ?Medication ?Instructions ?Recorded ?Confirmed ?Type vitamin#30 30 mg iron-10 1 cap PO DAILY 05/30/24 05/30/24 History mg iron-folic acid 1 mg-omg3 capsule Allergies Allergy/AdvReac Type Severity Reaction Status Date / Time No Known Allergies Allergy Verified 05/30/24 15:36 Vital Signs Vital Signs - 24 hr 06/01/24 17:00 06/01/24 20:00 06/01/24 20:45 Temperature 98 F Pulse Rate 60 Blood Pressure 119/65 Pulse Oximetry Oxygen Delivery Room Air 06/01/24 21:00 06/01/24 21:30 06/01/24 22:00 Temperature Pulse Rate 59 L 70 52 L Blood Pressure 112/57 L 94/70 L 102/54 L Pulse Oximetry Oxygen Delivery 06/01/24 23:00 06/02/24 00:00 06/02/24 00:30 Temperature 97.8 F Pulse Rate 63 61 58 L Blood Pressure 123/65 133/72 117/61 Pulse Oximetry Oxygen Delivery 06/02/24 01:00 06/02/24 01:31 06/02/24 02:00 Temperature Pulse Rate 69 55 L 58 L Blood Pressure 98/79 L 93/79 L 121/63 Pulse Oximetry Oxygen Delivery 06/02/24 02:30 06/02/24 02:45 06/02/24 03:00 Temperature 98.1 F Pulse Rate 62 56 L Blood Pressure 124/89 133/73 Pulse Oximetry Oxygen Delivery 06/02/24 03:29 06/02/24 03:34 06/02/24 03:39 Temperature Pulse Rate Blood Pressure Pulse Oximetry 100 100 100 Oxygen Delivery 06/02/24 03:49 06/02/24 03:54 06/02/24 03:59 Temperature Pulse Rate Blood Pressure Pulse Oximetry 99 99 99 Oxygen Delivery 06/02/24 04:00 06/02/24 04:04 06/02/24 04:09 Temperature Pulse Rate 64 Blood Pressure 133/47 L Pulse Oximetry 100 100 Oxygen Delivery 06/02/24 04:14 06/02/24 04:17 06/02/24 04:22 Temperature Pulse Rate Blood Pressure Pulse Oximetry 98 99 98 Oxygen Delivery 06/02/24 04:25 06/02/24 04:30 06/02/24 04:34 Temperature Pulse Rate Blood Pressure Pulse Oximetry 97 99 100 Oxygen Delivery 06/02/24 04:39 06/02/24 04:44 06/02/24 04:52 Temperature Pulse Rate Blood Pressure Pulse Oximetry 99 100 100 Oxygen Delivery 06/02/24 04:53 06/02/24 04:58 06/02/24 05:00 Temperature Pulse Rate 59 L Blood Pressure 118/71 Pulse Oximetry 100 100 Oxygen Delivery 06/02/24 05:03 06/02/24 05:08 06/02/24 05:13 Temperature Pulse Rate Blood Pressure Pulse Oximetry 100 99 99 Oxygen Delivery 06/02/24 05:16 06/02/24 05:53 06/02/24 06:00 Temperature Pulse Rate 58 L 61 Blood Pressure 137/80 126/80 Pulse Oximetry 100 Oxygen Delivery 06/02/24 06:15 04/19/25 06:30 06/02/24 06:45 Temperature Pulse Rate 55 L 57 L 55 L Blood Pressure 141/65 H 136/65 130/73 Pulse Oximetry Oxygen Delivery 06/02/24 07:00 06/02/24 07:15 06/02/24 07:25 Temperature 97.8 F Pulse Rate 58 L 55 L Blood Pressure 109/70 118/52 L Pulse Oximetry Oxygen Delivery 06/02/24 07:30 Temperature Pulse Rate 53 L Blood Pressure 115/54 L Pulse Oximetry Oxygen Delivery Exam Const: General: cooperative, healthy appearing, comfortable and no acute distress Orientation/consciousness: oriented to person, oriented to place and oriented to time HENMT: Head: normal to inspection Ears: external ears normal Face/Nose/Sinus: Normal external nose present and normal facial exam Face and sinus: normal facial exam Eyes: General: appearance normal, both eyes and all related structures Neck: Neck: normal visual inspection, trachea midline and supple Resp: Auscultation: clear to auscultation bilaterally, no crackles, no rales, no rhonchi and no wheezes Cardio: Rate: regular rate Rhythm: regular rhythm Heart sounds: no click, no murmurs and no rubs GI: GI Palp: No abdominal tenderness, No Soft to palpation, No Tenderness to palpation present (GI) and No Palpable mass present Auscultation: normal bowel sounds Skin: General skin exam: normal color and no rashes or lesions noted Neuro: General: oriented to person, oriented to place and oriented to time Extrem: General: normal to inspection, no joint enlargement, no clubbing, cyanosis or edema, no pedal edema and no calf tenderness Psych: Appearance: grossly normal Mental Status: mental status grossly normal Speech and movement: Normal speech and movement present H&P: Results Labs Labs: Short CBC 06/01/24 Range/Units 19:45 WBC 7.0 (4.5-10.0) K/mm3 Hgb 10.2 L D (12.0-15.0) g/dL Hct 29.6 L (37.0-47.0) % Plt Count 217 (150-375) k/mm3 Assessment and Plan Assessment and plan (1) IUGR (intrauterine growth restriction): Status: Acute (2) Oligohydramnios: Code(s): O41.00X0 - Oligohydramnios, unspecified trimester, not applicable or unspecified Status: Acute (3) intolerance to labor, delivered, current hospitalization: Code(s): O77.9 - Labor and delivery complicated by stress, unspecified Status: Acute Plan 18 year old primiparous female with growth restriction and oligohydramnios. Exhibited in intolerance of labor. Agreed to proceed with delivery. She understands risks, benefits, and alternatives. She has completed informed consent process and is ready to proceed.
--- NOTE | 2024-06-02 08:19 | WPDHPUPDATE1 ---
History and Physical Update Update Date/Time: 06/02/24 08:19 History and Physical has been reviewed, including an updated exam of the patient. There are NO changes in the patient's condition. Risks, benefits, and alternatives have been discussed and questions answered. Patient agrees to proceed with procedure.
[2024-06-02] MEDS: ceFAZolin 2 GM/D5W 50 ML 2 GM/50 ML BAG IVPB (08:32)
--- NOTE | 2024-06-02 09:30 | P.PCNOB_ITS ---
OB - Delivery Note Procedure Delivery date: 06/02/24 Pre-op diagnosis: Decelerations, Oligohydramnios and Other (Growth restriction) Post-op Diagnosis: Same Procedure Performed: Primary Surgeon: Marcus Figueroa MD Anesthesia type: Spinal Description of Procedure/Findings: The patient was taken the operating room.? She was prepped and draped in dorsal supine position with a leftward tilt.? This was done after spinal anesthetic was applied.? A low-transverse skin incision was made and carried down till of the fascia with the knife.? The fascial incision was made with the knife.? The fascial incision was extended laterally with Gardner scissors.? The fascia was tented upward superiorly and inferiorly the rectus muscles were dissected off bluntly.? The rectus muscles were the midline.? The preperitoneal fat and peritoneum were dissected open bluntly at the superior aspect of the rectus muscles.? The peritoneal incision was extended superior and inferior with good position of bladder.? The uterine incision was made with a scalpel down to the level of the amniotic cavity.? The amniotic cavity was entered bluntly.? The infant was delivered.? The cord was clamped and cut and the was handed off to waiting pediatric staff.? Cord bloods were obtained.? The placenta was removed manually.? The uterus was exteriorized.? The uterus was cleared of all clots, debris and membranes.? The uterus was closed in 0 Vicryl running lock fashion.? An imbricating over a was placed along the i ncision line as well.? The uterus was returned to the abdomen.? The gutters were cleared of all clots and debris.? The fascia was closed with 0 Vicryl running fashion.? The subcutaneous tissue was irrigated pinpoint bleeders were cauterized.? The skin was closed with subcuticular absorbable victorina.? The skin incision line was covered with glue.? The patient tolerated the procedure well.? She has taken recovery room in stable condition.? Sponge lap and needle counts were correct x2.?
[2024-06-02] MEDS: LIDOCAINE 5% PATCH 1 PATCH TRANSDERM ×2 (11:02→23:00)
[2024-06-02] MEDS: MORPHINE SULFATE (*CRX) 2 MG/ML INJ IV PUSH (11:33)
[2024-06-02] MEDS: ACETAMINOPHEN 325 MG TABLET 650 MG PO ×2 (12:58→19:09)
[2024-06-02] MEDS: SIMETHICONE 80 MG TAB.CHEW PO ×2 (12:58→15:58)
[2024-06-02] MEDS: DOCUSATE SODIUM 100 MG CAPSULE PO ×2 (12:58→15:57)
[2024-06-02] MEDS: KETOROLAC 15 MG/ML VIAL (*BKC) IV PUSH ×2 (12:59→19:09)
--- NOTE | 2024-06-02 13:52 | OBPPTRN ---
Patient and baby transferred to post room #282 via ( stretcher). Support person present. Oriented to unit, room, information board, rooming in, admission packet and security measures. Patient verbalizes understanding.
[2024-06-02] MEDS: METOCLOPRAMIDE HCL INJ 10 MG/2 ML VIAL IV PUSH (14:36)
[2024-06-02] MEDS: DEXTROSE 5%/0.45% SOD CHL 1,000 ML 125 ML IV CONT (14:38)
[2024-06-03] MEDS: KETOROLAC 15 MG/ML VIAL (*BKC) IV PUSH ×2 (01:01→07:32)
[2024-06-03] MEDS: ACETAMINOPHEN 325 MG TABLET 650 MG PO ×4 (01:01→20:49)
[2024-06-03 07:30] VITALS: BP 120/64; PULSE 63; RESP 18; TEMP 36.6; O2SAT 100
[2024-06-03] MEDS: DOCUSATE SODIUM 100 MG CAPSULE PO ×2 (07:31→17:13)
[2024-06-03] MEDS: MULTIVIT/MIN/PREN/FOL AC/IRON TABLET 1 TAB PO (07:31)
[2024-06-03] MEDS: SIMETHICONE 80 MG TAB.CHEW PO ×3 (07:32→17:13)
[2024-06-03 07:46] LABS: Basophils Percent Auto 0.2 % (0.2-1.2); Eosinophils Absolute Auto 0.1 K/mm3 (0-0.3); Eosinophils Percent Auto 0.9 % (0-4.4); Hematocrit 23.4 % (37.0-47.0); Immature Granulocyte Absolute 0.04 K/mm3 (0.00-0.031); Immature Granulocyte Percent A 0.4 % (0-0.5); Lymphocytes Absolute Auto 1.71 K/mm3 (0.9-3.2); Lymphocytes Percent Auto 15.2 % (18.3-44.2); Mean Corpuscular HGB Conc 34.2 g/dl (32-36); Mean Corpuscular Hemoglobin 32.9 pg (26-34); Mean Corpuscular Volume 96.3 fl (80-100); Mean Platelet Volume 10.9 fl (7.4-10.4); Monocytes Percent Auto 8.4 % (2.6-8.5); Neutrophils Absolute Auto 8.4 K/mm3 (1.3-6.7); Neutrophils Percent Auto 74.9 % (45.5-73.1); Platelet Count Result 222 k/mm3 (150-375); Red Blood Count 2.43 M/mm3 (4.2-5.4); Red Cell Distribution Width 12.9 % (11.5-14.5); White Blood Count 11.3 K/mm3 (4.5-10.0)
[2024-06-03] MEDS: POLYSACCHARIDE IRON COMPLEX 150 MG CAPSULE PO ×2 (09:48→17:13)
[2024-06-03] MEDS: TETANUS,DIPHTHERIA,AC PERTUSSIS ADULT (0.5 ML) BOOSTRIX IM (09:48)
--- NOTE | 2024-06-03 09:48 | WPDANLDPN2 ---
Anes-Prog Note L&D Date/Time: 06/03/24 09:48 Comfortable throughout: section Neuraxial method: spinal Epidural/Spinal procedure site: clean & non-tender Neuro status: Neuro function grossly intact. Cardiovascular status: normal Respiratory status: normal Airway patency: baseline Mental status: baseline Post-Op hydration status: normal Vital Signs: Last Vital Signs Temp 36.6 C 06/03/24 07:30 Pulse 63 06/03/24 07:30 Resp 18 06/03/24 07:30 BP 120/64 06/03/24 07:30 Pulse Ox 100 06/03/24 07:30 O2 Del Method Room Air 06/02/24 16:23 Pain score (VAS): 3/10 I/O: Intake & Output 06/02/24 06/03/24 06/03/24 23:59 07:59 15:59 Intake Total 1010 Output Total 1200 Balance -190 Post-procedural complaints: none Patient feedback: Patient satisfied with anesthetic care.
--- NOTE | 2024-06-03 09:49 | WPDANLDNPN2 ---
Anes-Prog Note L&D-Neuraxial Date/Time: 06/03/24 09:49 Neuraxial medications: intrathecal PF morphine Opiod-related complaints: none Patient feedback: Patient satisfied with post-operative pain management.
--- NOTE | 2024-06-03 11:34 | P.PNOB_ITS ---
OB - PN: Subj Subjective Date/time seen: 06/03/24 11:34 Patient comments: no complaints, pain well controlled, tolerating diet and flatus present OB - PN: Obj Data Labs 06/03/24 07:41 Labs: Laboratory Results - last 24 hr 06/03/24 07:41 WBC 11.3 H RBC 2.43 L Hgb 8.0 L Hct 23.4 L MCV 96.3 MCH 32.9 MCHC 34.2 RDW 12.9 Plt Count 222 MPV 10.9 H Immature Gran % (Auto) 0.4 Neut % (Auto) 74.9 H Lymph % (Auto) 15.2 L [place] % (Auto) 8.4 Eos % (Auto) 0.9 Baso % (Auto) 0.2 Lymph # (Auto) 1.71 [place] # (Auto) 1.0 H Eos # (Auto) 0.1 Baso # (Auto) 0.0 Abs Immat Gran (auto) 0.04 H Absolute Neuts (auto) 8.4 H Absolute Nucleated RBC 0.000 Nucleated RBC % 0.0 OB - PN A/P Plan day: 1 Comments: Post Op LTCS - no problems, routine recovery Time Spent With Patient Time: Total time spent is greater than 50% in coordination of care (as documented) at patient's floor/unit and/or counseling patient: Exam 2 Const: General: cooperative, healthy appearing, comfortable and no acute distress Resp: Auscultation: no crackles, no rales, no rhonchi and no wheezes Cardio: Rhythm: regular rhythm Heart sounds: no click and no murmurs GI: Inspection: non-distended Auscultation: normal bowel sounds Extrem: General: normal to inspection, no pedal edema and no calf tenderness
[2024-06-03] MEDS: IBUPROFEN 600 MG TABLET PO ×2 (15:05→20:49)
[2024-06-03] MEDS: LIDOCAINE 5% PATCH 1 PATCH TRANSDERM (18:21)
[2024-06-03 18:25] VITALS: BP 128/57; PULSE 74; RESP 18; TEMP 36.6; O2SAT 100
[2024-06-04] MEDS: ACETAMINOPHEN 325 MG TABLET 650 MG PO ×2 (02:56→09:19)
[2024-06-04] MEDS: IBUPROFEN 600 MG TABLET PO ×2 (02:56→09:19)
[2024-06-04] MEDS: POLYSACCHARIDE IRON COMPLEX 150 MG CAPSULE PO (07:27)
[2024-06-04] MEDS: SIMETHICONE 80 MG TAB.CHEW PO (07:27)
[2024-06-04] MEDS: DOCUSATE SODIUM 100 MG CAPSULE PO (07:27)
[2024-06-04 07:40] VITALS: BP 116/69; PULSE 66; RESP 18; TEMP 36.9; O2SAT 100
--- NOTE | 2024-06-04 08:31 | P.PNOB_ITS ---
OB - PN: Subj Subjective Date/time seen: 06/04/24 08:31 Patient comments: no complaints, pain well controlled, incisional pain, tolerating diet and flatus present OB - PN: Obj Data Labs 06/03/24 07:41 OB - PN A/P Plan day: 2 Plan: routine care Comments: POD#2 LTCS - no problems, Time Spent With Patient Time: Total time spent is greater than 50% in coordination of care (as documented) at patient's floor/unit and/or counseling patient: Exam 2 Const: General: comfortable, no acute distress and alert Resp: Effort & Inspection: normal respiratory effort Auscultation: no crackles, no rales and no rhonchi Cardio: Rate: regular rate Heart sounds: no click, no murmurs and no rubs GI: Inspection: non-distended Auscultation: normal bowel sounds Other: Incision - CDI Extrem: General: normal to inspection, no pedal edema and no calf tenderness
--- NOTE | 2024-06-04 08:32 | P.DS_ITS ---
DS: Admitting Diagnosis Discharge Date 06/04/2024 Admitting Diagnosis Term DS: Discharge Diagnosis Discharge Diagnosis (1) delivery delivered: Code(s): O82 - Encounter for delivery without indication Status: Acute OB - DS: Summary OB Procedures : None OB Procedures Intrapartum: OB Procedures: : None Peripartum Data Procedures: Procedures Operation Date: 06/02/24 08:30 Actual Procedure Side Surgeon p Section Bilateral Marcus Figueroa MD Time Spent with Patient Time attestation: Total time spent providing and/or coordinating discharge services: DS: Data Data Completed and Pending Pending studies at discharge: Pending at discharge 06/02/24 08:54 Cytology [PTH] Routine Discharge Plan Discharge Discharging Clinician: Marcus Figueroa Patient Disposition: Home Activity: pelvic rest Diet: regular Discharge Instructions: Education: Mom and Baby Guide Given to: Mother Follow-Up: Call your delivering provider's office for an appointment to be seen in: 1 Week Mom and baby should come to the [facility] for the follow-up appointment. Appointment Date/Time: June 05, 2024 at 11:00 am What to expect at your follow-up visit: Blood Pressure Check Physical Assessment Call [phone] if you are unable to keep your appointment time. BREAST CARE: * Wear a snug supportive bra. * For engorgement discomfort: Breast Feeding: * Apply warm moist washcloths * Express milk as needed to relieve engorgement * Wear loose clothing Bottle Feeding: * May apply ice packs * For sore nipples: * Identify correct latch-on * Apply warm moist washcloths before and after nursing * Air dry nipples after nursing * May apply Lansinoh cream to nipples ABDOMINAL INCISION: (if applicable) * Allow incision to air dry * Do NOT use lotions for powders on your incision * When showering, allow soap and water to run over the incision, but do not wash incision EPISIOTOMY/PERINEAL CARE: * Until bleeding stops, use your yobany bottle after urinating * Change your pad frequently throughout the day * You may take sitz baths several times a day (fill your bathtub with warm water and soak for 20 minutes.) Do NOT bathe in the water * No tub baths until seen by your physician - You may shower ACTIVITY: * Rest as much as possible. * Do not exercise or lift anything heavier than your baby (such as laundry or other children.) * Avoid stairs or driving as much as possible. * Do not put anything into the vagina. No douching, tampons, or sexual activity until seen by physician. NOTIFY PHYSICIAN IF YOU HAVE ANY QUESTIONS OR IF ANY OF THE FOLLOWING SYMPTOMS OCCUR: * If your episiotomy or incision becomes red, swollen, or more painful than what you have experienced in the hospital. * If your vaginal bleeding becomes foul smelling. * If your vaginal bleeding becomes more heavy than a period or if your bleeding changes from pink to bright red. However, you may pass an occasional walnut- sized clot once or twice for the first week . * If you experience a sharp, shooting pain in you calves. * If you discover a hard, reddened area on your breast or if you experience flu- like symptoms. DIET: * Eat regular, well-balanced meals. * Drink plenty of fluids daily. If , drink to thirst. Patient Instructions: Antibiotic Form, Caring for Your Baby (DC), Vaginal Delivery (DC) Patient Language: Lithuanian Stand Alone Forms: General Discharge Information Follow-up/Referrals: Marcus Figueroa MD [Physician] - Discharge Medications: New hydrocodone-acetaminophen 5-325 mg tablet 1 - 2 tablet PO Q6H PRN (Reason: pain) Qty: 25 0RF Continued PNV #[id number] 30 mg iron-10 mg iron-1 mg capsule 1 cap PO DAILY Date of admission: 06/01/24 12:30 Primary Care Provider: PHYSICIAN,[employer] Admitting Provider: Marcus Figueroa Attending physician on admission: Marcus Figueroa Condition: Stable
[2024-06-04] MEDS: HYDROcodone/acetaminophen (*CRX) 5-325 MG TABLET 1 TAB PO (09:18)
--- NOTE | 2024-06-04 10:20 | PC.NURSE ---
Upon initial admission this morning, baby was noted to have hat over her face down to her chin. Nurse removed hat and provided education to mother about safe sleep practices. Upon discharge, father was noted to have base installed forward facing. Education provided for baby to be rear facing. Instructed to go to [employer] to help with base installment. Father verbalized understanding. Baby was buckled in rear facing without base.
[2024-06-05 11:25] VITALS: BP 140/73; PULSE 77; RESP 20; TEMP 36.7; O2SAT 100
== END 2024-06-04 10:03 | disposition home or self-care (01) | DRG 540 ==
LOC: ANHLDR 17:17 → ANHOB2 06-02 12:50
PROVIDERS: Nurse Anesthetist, Certified Registered; Admitting Provider Obstetrics & Gynecology; Visit Provider Obstetrics & Gynecology
PROC: 10D00Z1 Extraction of Products of Conception, Low, Open Approach (ICD-10-PCS; CPT 59514; principal; 2024-06-02 08:30)
DX: O36.5930 Maternal care for other known or suspected poor fetal growth, third trimester, not applicable or unspecified (principal); O41.03X0 Oligohydramnios, third trimester, not applicable or unspecified; O76 Abnormality in fetal heart rate and rhythm complicating labor and delivery; Z3A.39 39 weeks gestation of pregnancy; Z37.0 Single live birth
CPT/HCPCS: 36415; 84112; 85025; 86593; 86703; 86850; 86900; 86901; 88307; 90715; A9270; G0432; J0290; J0690; J1885; J2270; J2274; J2405; J2765; J3010; J7120